=== PATIENT | female | born 1965 | race Caucasian/White ===

== ENCOUNTER 2017-07-30 22:31 | Emergency (ER) | payer BC, MEDICARE ==
[~2017-07-30] VITALS: Ht 165.1 cm; Wt 45.4 kg
[~2017-07-30 22:31] MED LIST: AMIT50TA PO; DIPH25CA58 IV; FURO-68 PO; METO25TA4 PO; POTA20TA4 PO; PROM25VI5 IJ; WARF1TAB74 PO
--- NOTE | 2017-07-30 23:14 | PHYS DOC ---
General Chief Complaint: COUGH Stated Complaint: SHORT OF BREATH,COUGHING BLOOD,WEAK Time Seen by MD: 22:36 Source: patient, old records Exam Limitations: no limitations Problems: History of Present Illness Initial Comments Patient is a 51-year-old female with an extensive past medical history who takes Coumadin coming to the emergency department complaining of shortness of breath and hemoptysis. Patient states that for the past 2 weeks she's had fatigue and weakness, she's had dyspnea on exertion off and running out of breath walking from one room to the next. She's had chest tightness and intermittent chills and sweats. She does admit to having a bloody nose recently due to the dry weather however tonight she noticed blood in her sputum while coughing and wasn't certain whether it was coming from her nose or lungs. Her last INR check was last Thursday she is uncertain of the results, she follows with Dr. Ling as PCP. ED vitals: 98.4, 100, 26, 120/83, 95% room air Timing/Duration: 4-6 hours, constant Severity: moderate Modifying Factors: improves with other Associated Symptoms: chest pain, cough, diaphoresis, fever/chills, headaches, malaise, shortness of breath, weakness Allergies: Coded Allergies: acetaminophen (Verified Allergy, Severe, 09/10/16) hydrocodone (Verified Allergy, Severe, 09/10/16) clarithromycin (Verified Allergy, Intermediate, 09/10/16) codeine (Verified Allergy, Intermediate, 09/10/16) guaifenesin (Verified Allergy, Intermediate, 03/28/16) meperidine (Verified Allergy, Intermediate, 09/10/16) metoclopramide (Verified Allergy, Intermediate, 09/10/16) propoxyphene (Verified Allergy, Intermediate, 09/10/16) tramadol (Verified Allergy, Intermediate, 09/10/16) vitamin K2 (Verified Allergy, Intermediate, 09/10/16) Past Medical History Medical History: other (peptic ulcer disease, GI bleed, tricuspid valve endocarditis, bilateral pleural effusions requiring thoracentesis, PE, septic PEs, pulmonary infarct, bacterial endocarditis, upper extremity deep vein thrombosis, gastroparesis, GERD, anemia with multiple blood transfusions, bowel obstructions, chronic Coumadin anticoagulation) Surgical History: other (tricuspid valve debridement and annuloplasty in 2015, open heart surgery, appendectomy, cholecystectomy, adhesion lysis, Gray fundoplication, tubal ligation, hysterectomy, thoracentesis, multiple abdominal surgeries) Social History Smoker: non-smoker Alcohol: none Drugs: none Review of Systems Constitutional: chills, diaphoresis, denies fever, malaise, weakness EENTM: denies ear pain, denies nose pain, denies throat pain, denies mouth pain Respiratory: see HPI, cough, shortness of breath, wheezing Cardiovascular: see HPI, chest pain, denies palpitations, denies syncope Gastrointestinal: denies abdominal pain, diarrhea, denies nausea, denies vomiting Genitourinary: denies dysuria, denies frequency, denies hematuria Musculoskeletal: denies back pain, denies joint swelling, denies neck pain Psychiatric/Neurological: headache, denies numbness, denies paresthesia, denies weakness Hematologic/Lymphatic: see HPI Physical Exam General Appearance: mild distress, thin Ear, Nose, Throat: hearing grossly normal, normal ENT inspection, normal pharynx (dried blood in the nose and in the oral cavity) Neck: non-tender, supple Respiratory: other (course breath sounds bilaterally decreased at the base on the right with fairly good air movement no respiratory distress and the chest is nontender) Cardiovascular: normal peripheral pulses, regular rate, rhythm Gastrointestinal: normal bowel sounds, non tender, soft Back: no CVA tenderness, no vertebral tenderness Extremities: normal range of motion, non-tender, no pedal edema, no calf tenderness, pelvis stable, other (arthritic changes noted at bilateral upper extremities) Neurologic/Psychiatric: 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 PATIENT: GWENDOLYN CAVAZOS ACCOUNT: [id number] : 1965 LOCATION: ER AGE: 51 SEX: F EXAM STATUS: REG ER ORD. PHYSICIAN: VERNA GROSSMAN DO REASON: sob h/o septic PE PROCEDURE: CT ANGIOGRAPHY CHEST INDICATION: [id number] Omni 300 75cc: PE protocol: Chest pain, short of air, coughing up blood tonight. HX: Lung PE 2016, valve replacement. Old images sent from 09/10/16 for comparison. COMPARISON: September 10, 2016 TECHNIQUE: Axial CT images obtained through the chest. Intravenous contrast utilized. Angiogram 3D images processed per protocol. One or more of the following individualized dose reduction techniques were utilized for this examination: 1. Automated exposure control; 2. Adjustment of the mA and/or kV according to patient size; 3. Use of iterative reconstruction technique. FINDINGS: No evidence of pneumothorax. There is numerous masslike opacities scattered throughout the bilateral lungs. Some of these appear increased from prior and some appear decreased from prior. For example in the left upper lung anteriorly there is a masslike opacity measuring up to approximately 11 mm on current exam that was previously approximately 5 mm. There is a opacity in the right upper lung which currently appears nodular measuring approximately 8 mm. Near this location on prior there is a larger opacity seen measuring up to 32 mm. There is repeat demonstration of cavitation of some of these lesions including within the right lower lung. Within the right lower lobe and right middle lobe there is interval development of a large region of groundglass and nodular opacities seen. Portion of ascending thoracic aorta obscured by motion but no definite aneurysm or dissection seen in visualized portions. Mildly enlarged lymph nodes are again seen scattered throughout the mediastinum. Poststernotomy changes. There is some evidence of degenerative changes of spine. No central pulmonary embolus. Some limitation peripherally secondary to motion IMPRESSION: 1. No central pulmonary embolus. 2. Repeat demonstration of numerous masslike opacity scattered throughout the bilateral lungs with some of them again showing cavitation. Some of these masslike opacities have increased and some have decreased in size compared to prior. Correlation is needed for the patient's history to help assess for cause of this finding since neoplastic causes such as metastasis can have this appearance as well as atypical infectious causes or inflammatory etiology. 3. There is a region of nodular groundglass opacity within the right lower and middle lobe now seen. This could be related to the other pulmonary process but is also possible that this is a superimposed secondary process such as pneumonia, alveolar hemorrhage or aspiration. Electronically signed by: Lili Dudley MD (07/31/2017 12:08 AM) [facility] [place] DICTATED AND SIGNED BY: LILI DUDLEY MD DATE: 07/30/17 5341 CC: CARLOS LING MD; VERNA GROSSMAN DO ~ Pertinent labs: Hemoglobin 10.4, d-dimer 0.56, C-reactive protein 93.6, BNP 330 , PT greater than 128, INR greater than 10, PTT 113 0119: I discussed the patient with Dr. Ling her PCP. I recommended and he agreed patient needs pulmonology and possibly cardiothoracic surgery in-house, is agreeable to transfer to for further evaluation and treatment. 0146: Due to our phone system being down a tried calling data processing consultant hospitalist Dr. Mohamud twice on my cell phone, both calls did not go through. At this time we are going through the on-call service to try to reach the on-call hospitalist. Also awaiting a call back from data processing consultant pulmonology. Impressions: Severe Coumadin coagulopathy Chest pain Numerous masslike pulmonary opacities questionable etiology Hemoptysis Questionable right sided pulmonary hemorrhage Elevated C-reactive protein with history of endocarditis and septic PEs 0200: I discussed the patient with data processing consultant pulmonology Dr. Del Valle. After thorough discussion of the patient's history, ED presentation, and ED findings and he agrees to see the patient in consultation at the ICU at once admitted to the hospitalist. When asked he requests no specific other treatments or orders at this time. 0222: I discussed the patient with data processing consultant hospitalist at Dr. Mohamud. She requests the patient be transferred and admitted to the ICU at and 4 of FFP given. 0440:2 units of FFP have been given, notified by lab that 2 more are now ready. As soon as they arrived to the emergency department EMS be contacted and the patient can be transferred with the FFP being infused. Patient has had a very prolonged ED course due to workup initially and now due to blood bank delay and providing the FFP. The patient has had no further bleeding issues, she's been resting comfortably with stable vital signs. I have been advised that she should be on the road very shortly. Departure Time of Disposition: 01:52 Disposition: 02 XFER SHT-TRM HOSP Condition: STABLE Critical Care Note Total Time (mins): 60 Comments Critical care time spent attempting to contact specialists, discussing the patient extensively with her PCP, rn ortho, as well as admitting physician. Collecting data and going over results as well as direct supervision of blood product administration. VERNA GROSSMAN DO Jul 30, 2017 23:14
[2017-07-30] MEDS ORDERED: CONTRAST GIVEN MC PRN (23:15)
[2017-07-30] MEDS ORDERED: IOHEXOL 300 MG/ML 75 ML VIAL. IV ONE (23:15)
[2017-07-31 00:10] LABS: BASO # 0.1 x10^3/uL (0.0-0.2); BASO % 1 % (0-3); EOS # 0.1 x10^3/uL (0.0-0.7); EOS % 1 % (0-3); HEMATOCRIT 29.7 % (36.0-47.0); HEMOGLOBIN 10.4 g/dL (12.0-15.5); LYMPH # 1.7 x10^3/uL (1.0-4.8); LYMPH % 17 % (24-48); MEAN CORPUSCULAR HEMOGLOBIN 30 pg (25-35); MEAN CORPUSCULAR HGB CONC 35 g/dL (31-37); MEAN CORPUSCULAR VOLUME 85 fL (79-100); MONO # 0.8 x10^3/uL (0.0-1.1); MONO % 8 % (0-9); NEUT # 7.8 x10^3uL (1.8-7.7); NEUT % 74 % (31-73); PLATELET COUNT 334 x10^3/uL (140-400); RED CELL DISTRIBUTION WIDTH 14.1 % (11.5-14.5); WHITE BLOOD COUNT 10.5 x10^3/uL (4.0-11.0)
--- NOTE | 2017-07-31 00:11 | RAD ---
INDICATION: [id number] Omni 300 75cc: PE protocol: Chest pain, short of air, coughing up blood tonight. HX: Lung PE 2016, valve replacement. Old images sent from 09/10/16 for comparison. COMPARISON: September 10, 2016 TECHNIQUE: Axial CT images obtained through the chest. Intravenous contrast utilized. Angiogram 3D images processed per protocol. One or more of the following individualized dose reduction techniques were utilized for this examination: 1. Automated exposure control; 2. Adjustment of the mA and/or kV according to patient size; 3. Use of iterative reconstruction technique. FINDINGS: No evidence of pneumothorax. There is numerous masslike opacities scattered throughout the bilateral lungs. Some of these appear increased from prior and some appear decreased from prior. For example in the left upper lung anteriorly there is a masslike opacity measuring up to approximately 11 mm on current exam that was previously approximately 5 mm. There is a opacity in the right upper lung which currently appears nodular measuring approximately 8 mm. Near this location on prior there is a larger opacity seen measuring up to 32 mm. There is repeat demonstration of cavitation of some of these lesions including within the right lower lung. Within the right lower lobe and right middle lobe there is interval development of a large region of groundglass and nodular opacities seen. Portion of ascending thoracic aorta obscured by motion but no definite aneurysm or dissection seen in visualized portions. Mildly enlarged lymph nodes are again seen scattered throughout the mediastinum. Poststernotomy changes. There is some evidence of degenerative changes of spine. No central pulmonary embolus. Some limitation peripherally secondary to motion IMPRESSION: 1. No central pulmonary embolus. 2. Repeat demonstration of numerous masslike opacity scattered throughout the bilateral lungs with some of them again showing cavitation. Some of these masslike opacities have increased and some have decreased in size compared to prior. Correlation is needed for the patient's history to help assess for cause of this finding since neoplastic causes such as metastasis can have this appearance as well as atypical infectious causes or inflammatory etiology. 3. There is a region of nodular groundglass opacity within the right lower and middle lobe now seen. This could be related to the other pulmonary process but is also possible that this is a superimposed secondary process such as pneumonia, alveolar hemorrhage or aspiration. Electronically signed by: Eulogio Hess MD (07/31/2017 12:08 AM) [facility]
[2017-07-31 00:16] LABS: ALBUMIN/GLOBULIN RATIO 0.7 (1.0-1.7); C REACTIVE PROTEIN 93.6 mg/L (0-3.3); CALCIUM 8.2 mg/dL (8.5-10.1); CREATININE 0.8 mg/dL (0.6-1.0); GFR 76.2; POTASSIUM 3.5 mmol/L (3.5-5.1); TOTAL BILIRUBIN 0.3 mg/dL (0.2-1.0); TOTAL PROTEIN 7.4 g/dL (6.4-8.2)
[2017-07-31] MEDS ORDERED: WARF1TAB74 PO (00:38)
[2017-07-31 01:19] LABS: INFLUENZA A PATIENT NEGATIVE (NEGATIVE); INFLUENZA B PATIENT NEGATIVE (NEGATIVE)
[2017-07-31] MEDS ORDERED: MORPHINE SULFATE 5 MG/ML SYRINGE. IV ONE (01:30)
[2017-07-31] MEDS ORDERED: PROMETHAZINE IM 25 MG/ML VIAL IM ONE (01:30)
[2017-07-31 01:36] LABS: AMPHETAMINE/METHAMPHETAMINE NEG (NEG); BARBITURATES NEG (NEG); BENZODIAZEPINES NEG (NEG); CANNABINOIDS NEG (NEG); COCAINE NEG (NEG); METHADONE NEG (NEG); OPIATES NEG (NEG); PHENCYCLIDINE NEG (NEG)
[2017-07-31] MEDS ORDERED: PROMETHAZINE 25 MG/ML VIAL IV ONE (01:36)
[2017-07-31 01:47] LABS: BACTERIA,URINE FEW /HPF (0-FEW); BILIRUBIN,URINE NEG (NEG); CLARITY,URINE TURBID; COLOR,URINE RED; GLUCOSE,URINE NEG (NEG); NITRITE,URINE NEG (NEG); RBC,URINE TNTC /HPF (0-2); SQUAMOUS EPITHELIAL CELL,UR FEW /LPF; UROBILINOGEN,URINE 1 mg/dL (0.2 mg/dL)
[2017-07-31 05:45] VITALS: BP 104/70
--- NOTE | 2017-07-31 05:51 | EKG ---
[address] [address] Test Date: 2017-07-30 Test Time: 23:05:31 Pat Name: GWENDOLYN CAVAZOS Department: Room: Gender: F Sander Operator: MANUELA : 1965 Requested By: VERNA GROSSMAN Order Number: [id number] Reading MD: Zane Hein Measurements Intervals [place] Rate: 83 P: 90 OK: 148 QRS: 42 QRSD: 80 T: 60 QT: 388 QTc: 456 Interpretive Statements SINUS RHYTHM T ABNORMALITY IN HIGH LATERAL LEADS ABNORMAL ECG Electronically Signed On 08-04-2017 16:26:06 STITCH SEPARATOR by Zane Hein
--- NOTE | 2017-07-31 08:00 | RAD ---
Indication: Chest pain, shortness of breath. Technique: Portable AP chest x-ray Comparison: CT chest from 07/30/2017 Findings: Median sternotomy. Right-sided central venous catheter is noted with its tip in the right atrium. No pneumothorax or pleural effusion. Reticulonodular opacities are seen in the right lower lobe better seen on CT chest from the same day. Focal opacity seen in the left upper lobe Visualized bony thorax within normal limits. Impression: Right lower lobe interstitial opacities. Findings are suspicious of infectious process. Please see report on CT chest from the same day for more information.
== END 2017-07-31 05:52 | disposition short-term general hospital (02) ==
LOC: ER 22:31
DX: D68.8 Other specified coagulation defects (principal); R07.9 Chest pain, unspecified; R04.2 Hemoptysis; R79.82 Elevated C-reactive protein (CRP); K21.9 Gastro-esophageal reflux disease without esophagitis; Z86.711 Personal history of pulmonary embolism; Z87.11 Personal history of peptic ulcer disease; Z86.718 Personal history of other venous thrombosis and embolism; Z86.2 Personal history of diseases of the blood and blood-forming organs and certain disorders involving the immune mechanism; Z90.49 Acquired absence of other specified parts of digestive tract; Z90.710 Acquired absence of both cervix and uterus; Z98.51 Tubal ligation status; Z98.890 Other specified postprocedural states; Z79.01 Long term (current) use of anticoagulants; Z88.6 Allergy status to analgesic agent; Z88.1 Allergy status to other antibiotic agents; Z88.5 Allergy status to narcotic agent; Z88.8 Allergy status to other drugs, medicaments and biological substances
CPT/HCPCS: 99291; J2270; J2550; P9017; 36415; 71045; 71275; 80053; 80307; 81001; 82550; 83605; 83880; 84484; 85025; 85379; 85610; 85730; 86140; 86850; 86900; 86901; 86927; 87040; 87205; 87804; 93005; 99281; Q9967; G0479

== ENCOUNTER 2017-08-02 17:37 | Inpatient (IN) | payer BC, MEDICARE ==
[~2017-08-02] VITALS: Ht 165.1 cm; Wt 48.2 kg
[2017-08-02] MEDS ORDERED: FUROSEMIDE 40 MG TABLET PO PRN (19:00)
[2017-08-02] MEDS ORDERED: POTASSIUM CHLORIDE 20 MEQ TABLET.ER. PO PRN (19:00)
[2017-08-02 19:11] VITALS: BP 110/68
--- NOTE | 2017-08-02 19:25 | NUR ---
Pt was direct admitted to [facility] room 113 from home. Admission assessment completed. VSS. Pt was just discharged home from [facility] for coughing up blood and found to have an INR>10. Pt did receive 4 unit of FFP on 07/30/17. Health history & home medications reviewed with pt. Pt with extensive gastro & cardiac hx. Pt admitted for + blood cx results from labs drawn on 07/30/17. Pt with left chest Groshong. Access site assessed and dressing change completed, no signs of infection noted. 2 new sets of blood cultures drawn (1 set from Groshong) and IV Vanco started per order. Pt lives at home with & kids. SCDs for VTE, pt normally takes Coumadin but currently holding. Pt refused flu & pneumonia vaccine. Pt with + MRSA hx, nasal swab obtained. Pt was given written information regarding hospital policies, unit procedures and contact persons. Valuables were checked and left at bedside. Call light within reach.
[2017-08-02 19:29] LABS: BASO # 0.1 x10^3/uL (0.0-0.2); BASO % 1 % (0-3); EOS # 0.2 x10^3/uL (0.0-0.7); EOS % 2 % (0-3); HEMATOCRIT 30.9 % (36.0-47.0); HEMOGLOBIN 10.3 g/dL (12.0-15.5); LYMPH # 1.6 x10^3/uL (1.0-4.8); LYMPH % 21 % (24-48); MEAN CORPUSCULAR HEMOGLOBIN 29 pg (25-35); MEAN CORPUSCULAR HGB CONC 33 g/dL (31-37); MEAN CORPUSCULAR VOLUME 88 fL (79-100); MONO # 0.3 x10^3/uL (0.0-1.1); MONO % 4 % (0-9); NEUT # 5.7 x10^3uL (1.8-7.7); NEUT % 72 % (31-73); PLATELET COUNT 464 x10^3/uL (140-400); RED BLOOD COUNT 3.53 x10^6/uL (3.50-5.40); RED CELL DISTRIBUTION WIDTH 14.3 % (11.5-14.5); WHITE BLOOD COUNT 7.9 x10^3/uL (4.0-11.0)
[2017-08-02] MEDS ORDERED: AMOX1TAB61 PO (19:58)
[2017-08-02] MEDS ORDERED: AMIT25TA PO (19:58)
[2017-08-02] MEDS ORDERED: FERR-26 PO (19:58)
[2017-08-02] MEDS ORDERED: PROM50SU6 PO (19:58)
[2017-08-02] MEDS ORDERED: VANCOMYCIN 1 GM in IV NORMAL SALINE 250ML 250 ML IV ONE (20:00)
[2017-08-02] MEDS ORDERED: PROMETHAZINE 25 MG TABLET. PO PRN (20:15)
[2017-08-02 20:35] LABS: CREATININE 0.8 mg/dL (0.6-1.0); GFR 76.2
[2017-08-02] MEDS ORDERED: AMITRIPTYLINE HCL 50 MG TABLET PO SCH (21:00)
[2017-08-02] MEDS: FERROUS SULFATE 325 MG TABLET. PO SCH (21:20)
[2017-08-02] MEDS: METOPROLOL TART IMMED RELEASE 25 MG TABLET PO SCH (21:21)
[2017-08-02] MEDS: NALBUPHINE 10 MG/ML AMPUL. IV PRN (21:24)
[2017-08-02] MEDS: AMITRIPTYLINE HCL 25 MG TABLET PO SCH (21:26)
[2017-08-02 21:33] LABS: SEDIMENTATION RATE 82 (0-25)
[2017-08-02 22:33] VITALS: BP 95/60
[2017-08-02] MEDS ORDERED: PROMETHAZINE IM 25 MG/ML VIAL IM ONE (23:26)
[2017-08-02] MEDS: diphenhydrAMINE 50 MG/ML VIAL IVP SCH (23:35)
[2017-08-02] MEDS: PROMETHAZINE 12.5 MG in IV NORMAL SALINE 50ML 50 ML IV PRN (23:35)
[2017-08-03] MEDS ORDERED: diphenhydrAMINE HCL 25 MG CAPSULE PO PRN
[2017-08-03] MEDS: NALBUPHINE 10 MG/ML AMPUL. IV PRN (03:43)
[2017-08-03] MEDS ORDERED: PROMETHAZINE 25 MG/ML VIAL IV ONE (05:15)
[2017-08-03] MEDS: diphenhydrAMINE 50 MG/ML VIAL IVP SCH ×4 (05:17→23:38)
[2017-08-03] MEDS: PROMETHAZINE 12.5 MG in IV NORMAL SALINE 50ML 50 ML IV PRN ×3 (05:17→22:31)
[2017-08-03 05:37] VITALS: BP 94/62
[2017-08-03 06:13] LABS: CALCIUM 7.8 mg/dL (8.5-10.1); CREATININE 0.6 mg/dL (0.6-1.0); GFR 106.3
[2017-08-03 06:30] LABS: BASO % 1 % (0-3); EOS # 0.2 x10^3/uL (0.0-0.7); EOS % 4 % (0-3); HEMATOCRIT 25.1 % (36.0-47.0); HEMOGLOBIN 8.5 g/dL (12.0-15.5); LYMPH # 2.3 x10^3/uL (1.0-4.8); LYMPH % 34 % (24-48); MEAN CORPUSCULAR HEMOGLOBIN 30 pg (25-35); MEAN CORPUSCULAR HGB CONC 34 g/dL (31-37); MEAN CORPUSCULAR VOLUME 88 fL (79-100); MONO # 0.5 x10^3/uL (0.0-1.1); MONO % 7 % (0-9); NEUT # 3.7 x10^3uL (1.8-7.7); NEUT % 55 % (31-73); PLATELET COUNT 348 x10^3/uL (140-400); RED BLOOD COUNT 2.84 x10^6/uL (3.50-5.40); RED CELL DISTRIBUTION WIDTH 14.2 % (11.5-14.5); WHITE BLOOD COUNT 6.8 x10^3/uL (4.0-11.0)
[2017-08-03] MEDS ORDERED: ALTEPLASE 2 MG VIAL INT CAT PRN (08:00)
[2017-08-03] MEDS: VANCOMYCIN PER PHARMACY MC PRN (08:31)
--- NOTE | 2017-08-03 08:31 | NUR ---
Pharmacy Vancomycin Dosing Note S:Consulted to monitor and dose vancomycin started 08/02/17. O:GWENDOLYN CAVAZOS is a 51 year old F with Bacteremia . Height: 5 feet, 5 inches Weight: 46.033895 kg [place] Body Weight: 57.00 Adjusted Body Weight: 52.60 Dosing Weight: Actual LABS: Last BUN: 10 Last Creatinine: 0.6 Creatinine Clearance: 83 Last WBC: 6.8 Last Platelets: 348 Vancomycin Dosing: Loading Dose: 1000 mg x1 Dosing Weight: Actual Target Trough: 15-20 A: Initial dosing is based on height, actual weight, renal function, and indication. P: 1. Vancomycin 1000mg was given initially (08/02@1999), then Vancomycin 750 mg IV q12h. 2. Follow up Trough level on 08/04/17 at 0730. 3. Pharmacy will continue to monitor, follow and adjust therapy as needed. TJ DAMICO, [facility] 08/03/17 0829
[2017-08-03] MEDS: VANCOMYCIN 750 MG in IV NORMAL SALINE 250ML 250 ML IV SCH ×2 (08:42→20:36)
[2017-08-03] MEDS: FERROUS SULFATE 325 MG TABLET. PO SCH ×3 (08:43→20:38)
[2017-08-03 10:32] VITALS: BP 117/72
[2017-08-03] MEDS: METOPROLOL TART IMMED RELEASE 25 MG TABLET PO SCH ×2 (10:59→20:37)
--- NOTE | 2017-08-03 12:27 | NUR ---
IP: Patient reports HX MRSA, requires contact precautions until 2 negative results 7 days apart.
[2017-08-03] MEDS ORDERED: PROMETHAZINE 25 MG TABLET. PO PRN (13:15)
[2017-08-03] MEDS: BUTORPHANOL 2 MG VIAL. IV PRN ×2 (14:15→20:50)
[2017-08-03 14:38] VITALS: BP 117/69
[2017-08-03] MEDS ORDERED: IPRATRPIUM/ALBUTEROL 0.5/2.5MG 3 ML NEBU. ONE (15:25)
[2017-08-03 19:56] VITALS: BP 97/61
[2017-08-03] MEDS: IPRATRPIUM/ALBUTEROL 0.5/2.5MG 3 ML NEBU. NEB SCH (20:10)
[2017-08-03] MEDS: AMITRIPTYLINE HCL 25 MG TABLET PO SCH (20:38)
[2017-08-03 22:37] VITALS: BP 98/63
--- NOTE | 2017-08-03 23:47 | HP ---
ADMIT DATE: 08/02/2017 HISTORY OF PRESENT ILLNESS: A 51-year-old female recently was in the hospital. She has a port in her left chest wall. Positive blood cultures were obtained from these, positive Staph aureus. As a result of this, the patient may also have the appearance as well of atypical infectious causes and inflammatory reaction to a previous CT scan. There is a possibility of a secondary pneumonia process noted. The patient was admitted to the hospital for further evaluation and treatment of this abnormality as well as positive blood cultures and her pneumonia. 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 She has had a history of endocarditis and Vascular Surgery anticoagulant therapy, hypertension, DVTs, bilateral pleural effusions needing thoracentesis gastroparesis, peptic ulcer disease, GERD, esophageal disorders, obstructive bowel disease, abdominal surgery, appendectomy, cholecystectomy, lysis of adhesions, laparoscopic Gray fundoplication and takedown, endoscopy, EGD and colonoscopy, nausea, gastroesophageal reflux, gastrointestinal bleed, tubal ligation, hysterectomy, hematuria, compression, loss of weight. He has had blood transfusions in the past, anemia, influenza vaccine and pneumococcal vaccines up to date. She has had multiple blood accesses, has ports, PICC lines and Groshongs and she has been positive in the past of MRSA. FAMILY HISTORY: Mother of Alzheimer disease. Father has chronic lung disease. ALLERGIES: TYLENOL, CLARITHROMYCIN, CODEINE, GUAIFENESIN, HYDROCODONE, MEPERIDINE, METOCLOPRAMIDE, PROPOXYPHENE, TRAMADOL, VITAMIN K. MEDICATIONS: She takes Elavil 25, Augmentin, Benadryl, ferrous sulfate, metoprolol tartrate 25 b.i.d., Phenergan, promethazine, warfarin 10 mg 3 times a week and 4 times a week. SOCIAL HISTORY: The patient denies smoking, alcohol or drug use. REVIEW OF SYSTEMS: The patient has generalized weakness, failure to thrive and difficulty in mobilizing. Also has harsh cough. PHYSICAL EXAMINATION: GENERAL: A pleasant white female, looking very frail and thin. VITAL SIGNS: Blood pressure 110/70, respiratory rate 20, pulse 97. HEENT: The patient's head was atraumatic, normocephalic. Eyes: PERRLA without jaundice. The mouth and throat were normal. NECK: Supple, without JVD, carotid bruits. No thyromegaly. LUNGS: The patient's lungs were diminished throughout, poor movement of air. CARDIOVASCULAR: Regular sinus rhythm, S1, S2. ABDOMEN: Soft, nontender, no rebounding or guarding. Positive bowel sounds, no hepatosplenomegaly noted. EXTREMITIES: No clubbing, cyanosis, no edema. NEUROLOGIC: The patient was alert and oriented x3. The patient was admitted for further evaluation. IMPRESSION: Pneumonia of unspecified etiology, community acquired, positive blood cultures. The patient will be admitted and placed on IV vancomycin and Levaquin for atypical pneumonias as noted on her CT scan. reports from her hem inspector as to these large masses in her lungs. CARLOS LING MD DR: NAJMA/saud JOB#: [id number] / [id number]
[2017-08-04] MEDS: BUTORPHANOL 2 MG VIAL. IV PRN ×4 (00:58→20:10)
[2017-08-04] MEDS: diphenhydrAMINE 50 MG/ML VIAL IVP SCH ×4 (05:29→23:42)
[2017-08-04] MEDS: PROMETHAZINE 12.5 MG in IV NORMAL SALINE 50ML 50 ML IV PRN ×3 (05:29→23:42)
[2017-08-04 06:08] VITALS: BP 112/72
[2017-08-04 08:10] LABS: VANC TR 10.2 mcg/mL (10.0-20.0)
[2017-08-04] MEDS: FERROUS SULFATE 325 MG TABLET. PO SCH ×3 (08:41→20:11)
[2017-08-04] MEDS: VANCOMYCIN 1 GM in IV NORMAL SALINE 250ML 250 ML IV SCH ×2 (08:41→20:10)
[2017-08-04] MEDS: VANCOMYCIN PER PHARMACY MC PRN (09:05)
--- NOTE | 2017-08-04 09:05 | NUR ---
Pharmacy Vancomycin Dosing Note S:Consulted to monitor and dose vancomycin started 08/02/17. O:GWENDOLYN CAVAZOS is a 51 year old F with Bacteremia . Height: 5 feet, 5 inches Weight: 47.831396 kg [place] Body Weight: 57.00 Adjusted Body Weight: 52.60 Dosing Weight: Actual Other Antibiotics: LEVAQUIN LABS: Last BUN: 10 Last Creatinine: 0.6 Creatinine Clearance: 83 Last WBC: 6.8 Last Platelets: 348 Microbiology: STAPH IN BLOOD Drug Levels: Last Trough level: 10.2 on 08/04/17 at 0730 Vancomycin Dosing: Loading Dose: 1000 mg x1 Dosing Weight: Actual Target Trough: 15-20 A: Based on today's trough of 10.2, the dose needs to increase to hit the target range. P: 1. Increase Vancomycin to 1000 mg IV q12h 2. Follow up Trough level on 08/05/17 at 1930 3. Pharmacy will continue to monitor, follow and adjust therapy as needed. TJ DAMICO [facility] 08/04/17 0948
[2017-08-04 11:05] VITALS: BP 125/72
[2017-08-04] MEDS: METOPROLOL TART IMMED RELEASE 25 MG TABLET PO SCH ×2 (11:25→20:11)
[2017-08-04] MEDS: IPRATRPIUM/ALBUTEROL 0.5/2.5MG 3 ML NEBU. NEB SCH ×2 (11:50→21:00)
[2017-08-04 19:30] VITALS: BP 113/78
[2017-08-04] MEDS: DOXYCYCLINE HYCLATE 100 MG TABLET PO SCH (20:11)
[2017-08-04] MEDS: AMITRIPTYLINE HCL 25 MG TABLET PO SCH (20:11)
[2017-08-04] MEDS: LACTOBACILLUS RHAMNOSUS GG 1 CAPSULE. PO SCH (21:40)
[2017-08-04] MEDS ORDERED: PROMETHAZINE 25 MG/ML VIAL IV ONE (23:13)
[2017-08-05 00:08] VITALS: BP_SYST 103; BP_SYST 105; BP_DIAS 60
--- NOTE | 2017-08-05 02:21 | NUR ---
pATIENT ALERT X4. VSS. Mild Wheezing mainly over upper part of the lungs was heard. Complained of severe migraines. PRN medication administrated as per MD orders. Reported decreasing headache after one hour of administration. Patient had a shower. Left chest Groshong dressing was changed using sterile technique. Patient tolerated antibiotic administration. Patient was maintained NPO and was instructed not to drink or eat after midnight. Safety precautions in place. Will continue monitoring.
--- NOTE | 2017-08-05 02:40 | NUR ---
patient was informed that today in the morning she will have a TTE. Informed of the propose.
[2017-08-05] MEDS: diphenhydrAMINE 50 MG/ML VIAL IVP SCH ×3 (05:16→18:00)
--- NOTE | 2017-08-05 05:56 | PN ---
DATE: 08/04/2017 SUBJECTIVE: A 51-year-old female with abnormal chest x-ray, pneumonia as well as positive blood cultures bacteremia. The patient will get mycoplasma serology. She has been changed over to doxycycline and vancomycin and will completely monitor her accordingly. Otherwise, the patient's CT scan showed numerous mass-like opacities scattered throughout the bilateral lungs. The patient will get a MOISES. She has had problems with bacterial endocarditis in the past and we will monitor her accordingly on such. Otherwise, the patient is feeling somewhat better. OBJECTIVE: VITAL SIGNS: Blood pressure 120/70, respiratory rate 20, pulse 70, afebrile. LUNGS: Diminished throughout, poor movement of air. CARDIOVASCULAR: Regular sinus rhythm, S1, S2, without murmur, rub, thrill, or extra heart sounds. ABDOMEN: Soft, nontender, no rebound or guarding. Positive bowel sounds. IMPRESSION: Therefore, pneumonia of unspecified etiology, probable mycoplasma, atypical multiple masses in the lungs. Positive blood cultures bacteremia. PLAN: The patient will be continued to be monitored carefully. Continue with IV antibiotic therapy and go for MOISES tomorrow. CARLOS LING MD DR: NAJMA/saud JOB#: [id number] / [id number]
[2017-08-05 06:11] VITALS: BP 116/63
[2017-08-05 07:03] LABS: BASO % 1 % (0-3); EOS # 0.2 x10^3/uL (0.0-0.7); EOS % 3 % (0-3); HEMATOCRIT 33.2 % (36.0-47.0); HEMOGLOBIN 10.8 g/dL (12.0-15.5); LYMPH # 2.1 x10^3/uL (1.0-4.8); LYMPH % 30 % (24-48); MEAN CORPUSCULAR HEMOGLOBIN 30 pg (25-35); MEAN CORPUSCULAR HGB CONC 33 g/dL (31-37); MEAN CORPUSCULAR VOLUME 91 fL (79-100); MONO # 0.4 x10^3/uL (0.0-1.1); MONO % 6 % (0-9); NEUT # 4.3 x10^3uL (1.8-7.7); NEUT % 61 % (31-73); PLATELET COUNT 462 x10^3/uL (140-400); RED BLOOD COUNT 3.66 x10^6/uL (3.50-5.40); RED CELL DISTRIBUTION WIDTH 14.7 % (11.5-14.5)
[2017-08-05 07:23] LABS: ALBUMIN 2.8 g/dL (3.4-5.0); ALBUMIN/GLOBULIN RATIO 0.6 (1.0-1.7); CALCIUM 8.8 mg/dL (8.5-10.1); CREATININE 0.7 mg/dL (0.6-1.0); GFR 88.9; TOTAL BILIRUBIN 0.3 mg/dL (0.2-1.0); TOTAL PROTEIN 7.7 g/dL (6.4-8.2)
[2017-08-05] MEDS: METOPROLOL TART IMMED RELEASE 25 MG TABLET PO SCH (09:00)
[2017-08-05] MEDS: LACTOBACILLUS RHAMNOSUS GG 1 CAPSULE. PO SCH (09:00)
[2017-08-05] MEDS: IPRATRPIUM/ALBUTEROL 0.5/2.5MG 3 ML NEBU. NEB SCH (09:00)
[2017-08-05] MEDS: FERROUS SULFATE 325 MG TABLET. PO SCH ×2 (09:10→14:24)
[2017-08-05] MEDS: DOXYCYCLINE HYCLATE 100 MG TABLET PO SCH (09:10)
[2017-08-05] MEDS: VANCOMYCIN 1 GM in IV NORMAL SALINE 250ML 250 ML IV SCH (09:16)
[2017-08-05 10:39] VITALS: BP 132/80
[2017-08-05] MEDS: BUTORPHANOL 2 MG VIAL. IV PRN (14:34)
[2017-08-05 14:44] VITALS: BP 111/70
[2017-08-05] MEDS: PROMETHAZINE 12.5 MG in IV NORMAL SALINE 50ML 50 ML IV PRN (15:00)
--- NOTE | 2017-08-05 18:04 | NUR ---
Called [place] for report for transfer of patient. Talked to GIGI Levy. Called [facility] for transportation. Will arrive [place].
--- NOTE | 2017-08-05 18:18 | NUR ---
Pt transferred to [place] via EMS.
--- NOTE | 2017-08-06 00:50 | PN ---
DATE: SUBJECTIVE: A 51-year-old female with a very complicated medical patient having multiple medical issues including tricuspid valve debridement and annuloplasty and multiple other problems, bacterial endocarditis in the past. The patient also has masses in her lungs ____ possibly be that of blood; however, the patient has turned up with positive for atypical mycoplasma pneumonia. She is receiving IV doxycycline as well as other antibiotics. She is being scheduled for a MOISES with Dr. Segundo for MOISES procedure. The patient did have an elevated sed rate of 82. She has a port, which may be a source of infection and she did have positive blood cultures as well. Nothing identified specifically, although she has had some gram positive and possibly some contaminant in another bottle or two, variable rods in the anaerobic bottles were also noted. In any case, the patient says she is feeling a little bit better today. OBJECTIVE: VITAL SIGNS: Blood pressure 130/80, respiratory rate 20, pulse 50. She is presently afebrile. LUNGS: Diminished throughout but clear. CARDIOVASCULAR: Regular sinus rhythm. ABDOMEN: Soft, nontender. GENERAL: The patient is alert and oriented x 3. Speech fluent and appropriate. Cranial nerves 2-12 grossly intact. She is doing well. LABORATORY DATA: INR being followed by Pharmacy. In any case, the patient's albumin is low. IMPRESSION: Therefore, atypical pneumonia, pulmonary abnormality, masses, possibly hematomas versus ____ cyst or even had possible infectious etiologies, history of bacterial endocarditis. Positive blood cultures, bacteremia, [id number] protein malnutrition, chronic migraines. PLAN: The patient otherwise will be monitored carefully, continue on IV antibiotic therapy, probably transfer down to [place] for further evaluation and treatment there from Dr. Segundo, Cardiology and ID as she sees appropriate. CARLOS LING MD DR: NAJMA/saud JOB#: [id number] / [id number]
[2017-08-06] MEDS ORDERED: IPRATRPIUM/ALBUTEROL 0.5/2.5MG 3 ML NEBU. NEB SCH (09:00)
== END 2017-08-05 18:25 | disposition short-term general hospital (02) | DRG 194 ==
LOC: 1 SOUTH 18:29
PROVIDERS: ADMIT Family Medicine; ATTEND Family Medicine
DX: J15.7 Pneumonia due to Mycoplasma pneumoniae (principal); R78.81 Bacteremia; E44.0 Moderate protein-calorie malnutrition; Z68.1 Body mass index [BMI] 19.9 or less, adult; K31.84 Gastroparesis; I10 Essential (primary) hypertension; G43.909 Migraine, unspecified, not intractable, without status migrainosus; J98.4 Other disorders of lung; K21.9 Gastro-esophageal reflux disease without esophagitis; Z86.718 Personal history of other venous thrombosis and embolism; Z79.01 Long term (current) use of anticoagulants; Z90.49 Acquired absence of other specified parts of digestive tract; Z98.51 Tubal ligation status; Z90.710 Acquired absence of both cervix and uterus; Z82.0 Family history of epilepsy and other diseases of the nervous system; Z83.6 Family history of other diseases of the respiratory system; Z88.5 Allergy status to narcotic agent; Z88.8 Allergy status to other drugs, medicaments and biological substances; Z79.899 Other long term (current) drug therapy; Z87.11 Personal history of peptic ulcer disease
CPT/HCPCS: 36415; 71045; 71275; 80048; 80053; 80202; 80307; 81001; 82550; 82565; 83605; 83880; 84484; 85025; 85379; 85610; 85651; 85730; 86140; 86738; 86850; 86900; 86901; 86927; 87040; 87205; 87641; 87804; 93005; 94640; J0595; J1200; J1956; J2300; J2550; J3370; J7050; J7620; Q9967; G0479

== ENCOUNTER → 2017-10-28 | Outpatient (CLI) | payer BC, MEDICARE ==
[~2017-10-28] MED LIST changes: +AMIT25TA PO; +AMOX1TAB61 PO; +FERR325T14 PO; +PROM50SU6 PO
--- NOTE | 2017-10-28 13:38 | RAD ---
CT abdomen pelvis without intravenous contrast History: Hematuria and left flank pain. Comparison: CT abdomen pelvis September 10, 2016. Technique: CT of the abdomen and pelvis was performed without intravenous or oral contrast. Exposure: One or more of the following individualized dose reduction techniques were utilized for this examination: 1. Automated exposure control 2. Adjustment of the mA and/or kV according to patient size 3. Use of iterative reconstruction technique Findings: Evaluation of solid organs is limited by lack of intravenous contrast. Evaluation of enteric structures may be limited by lack of oral contrast. There is motion artifact at many levels which could obscure subtle abnormalities. Incompletely seen, images of lower chest demonstrate consolidation in the left lower lobe adjacent to the aorta. Liver and spleen are grossly unremarkable. Bilateral adrenal glands are unremarkable. Pancreas is suboptimally visualized, but grossly unremarkable. Cholecystectomy clips are present. No nephrolithiasis is identified. Evaluation of the ureters is limited secondary to adjacent soft tissue structures as well as motion. No hydronephrosis is seen. There are calcifications in the pelvis which are favored to be phleboliths as there can be seen on previous study. Urinary bladder is unremarkable. Uterus is not seen, and is presumably absent. No gross bowel obstruction or inflammation is identified. Appendix is not confidently identified. Impression: 1. Limitations of study as described above. 2. No definite acute abnormality identified in the abdomen or pelvis. No definite evidence of renal stone. 3. Incompletely seen is irregular consolidation an left lower lobe adjacent to the aorta. Recommend clinical correlation with respiratory symptoms. Electronically signed by: Robel Macias MD (10/28/2017 1:35 PM) [facility]
--- NOTE | 2017-10-28 13:57 | RAD ---
Thyroid ultrasound, 10/28/2017: History: Hypothyroidism, enlarged thyroid gland The right lobe of the gland measures 3.3 x 1.4 x 1.4 cm while the left lobe of the gland measures 3.3 x 1.1 x 1.0 cm. There are several nodules in the thyroid gland. These are predominantly isoechoic and sometimes difficult to differentiate from the adjacent thyroid tissue. The largest of these lies in the lower pole of the right lobe of the gland and measures 1.1 cm. Its margins are smooth. It is solid with internal vascularity. It is wider than tall. No associated calcifications are seen. The largest nodule on the left measures 1 cm and lies in the mid to lower portion of the gland. It demonstrates similar sonographic characteristics compared to the above described right lobe nodule. There appear to be at least 3 other smaller subcentimeter isoechoic nodules in the left lobe. No calcifications or suspicious sonographic features are evident. IMPRESSION: Multinodular thyroid gland as described above. The thyroid nodules are solid, but do not demonstrate highly suspicious sonographic features. Ultrasound follow-up is suggested.
== END | disposition home or self-care (01) ==
LOC: US 12:20
PROVIDERS: ATTEND Nurse Practitioner Family
DX: J18.1 Lobar pneumonia, unspecified organism (principal); E03.9 Hypothyroidism, unspecified; E04.2 Nontoxic multinodular goiter
CPT/HCPCS: 74176; 76536

== ENCOUNTER 2018-01-07 16:13 | Emergency (ER) | payer BC, MEDICARE ==
[~2018-01-07] VITALS: Ht 165.1 cm; Wt 49.9 kg
[2018-01-07 16:34] VITALS: BP 122/85
--- NOTE | 2018-01-07 16:42 | PHYS DOC ---
Past History Past Medical History: Coagulopathy, DVT, Heart Disease, Migraines, MRSA, Other Past Surgical History: Appendectomy, Cholecystectomy, Hysterectomy, Tubal ligation, Other Alcohol Use: None Drug Use: None Adult General Chief Complaint Chief Complaint: HEADACHE HPI HPI Patient is a pleasant 52-year-old female who presents for evaluation of a migraine headache. She is dull with migraines for about 40 years. She has seen multiple neurologists and has had many different types of treatments medications. 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 The only medications that seem to work lately are Nubain and Stadol as well as Phenergan. She takes Coumadin because she has a history of pulmonary embolism. She denies any recent head trauma or falls. She states that the migraine she is having today is typical of her normal migraines and that there is nothing unusual about this migraine. She denies vision changes, neck pain or stiffness, fevers or chills, dizziness, back pain, chest pain or shortness of breath, abdominal pain, focal weakness or focal numbness. She declines CT imaging or INR testing today, both of which were offered. Review of Systems Review of Systems Constitutional: Denies fever or chills [] Eyes: Denies change in visual acuity, redness, or eye pain [] HENT: Denies nasal congestion or sore throat [] Respiratory: Denies cough or shortness of breath [] Cardiovascular: No additional information not addressed in HPI [] GI: Denies abdominal pain, nausea, vomiting, bloody stools or diarrhea [] : Denies dysuria or hematuria [] Musculoskeletal: Denies back pain or joint pain [] Integument: Denies rash or skin lesions [] Neurologic: Denies focal weakness or sensory changes [] +BUTTS Endocrine: Denies polyuria or polydipsia [] All other systems were reviewed and found to be within normal limits, except as documented in this note. Allergies Allergies Allergies Coded Allergies Type Severity Reaction Last Updated Verified acetaminophen Allergy Severe 09/10/16 Yes hydrocodone Allergy Severe 09/10/16 Yes clarithromycin Allergy Intermediate 09/10/16 Yes codeine Allergy Intermediate 09/10/16 Yes guaifenesin Allergy Intermediate 03/28/16 Yes meperidine Allergy Intermediate 09/10/16 Yes metoclopramide Allergy Intermediate 09/10/16 Yes propoxyphene Allergy Intermediate 09/10/16 Yes tramadol Allergy Intermediate 09/10/16 Yes vitamin K2 Allergy Intermediate 09/10/16 Yes I S O L A T I O N *CONTACT* Allergy Unknown 08/03/17 Yes Physical Exam Physical Exam Constitutional: Well developed, well nourished, no acute distress, non-toxic appearance. [] calm HENT: Normocephalic, atraumatic, bilateral external ears normal, oropharynx moist, no oral exudates, nose normal. [] Eyes: PERRLA, EOMI, conjunctiva normal, no discharge. [] Neck: Normal range of motion, no tenderness, supple, no stridor. [] Cardiovascular:Heart rate regular rhythm, no murmur [] Lungs & Thorax: Bilateral breath sounds clear to auscultation [] Abdomen: Bowel sounds normal, soft, no tenderness, no masses, no pulsatile masses. [] Skin: Warm, dry, no erythema, no rash. [] Back: No tenderness, no CVA tenderness. [] Extremities: No tenderness, no cyanosis, no clubbing, ROM intact, no edema. [] Neurologic: Alert and oriented X 3, normal motor function, normal sensory function, no focal deficits noted. [] Psychologic: Affect normal, judgement normal, mood normal. [] EKG EKG [] Radiology/Procedures Radiology/Procedures [] Course & Med Decision Making Course & Med Decision Making Pertinent Labs and Imaging studies reviewed. (See chart for details) @1700 - No red flags for serious headache etiology identified at this time other than the Coumadin. INR and imaging recommended but declined. Pt is A&Ox4. Patient reports she is feeling better after medications and does not want any imaging or blood tests to be performed today. She is stable for discharge at this time and is asking to go home. She'll follow-up with her PCP in 1-2 days. Dragon Disclaimer Dragon Disclaimer This electronic medical record was generated, in whole or in part, using a voice recognition dictation system. Departure Departure: Impression: Primary Impression: Migraine Disposition: HOME, SELF-CARE Condition: STABLE Referrals: CARLOS LING MD (PCP) Patient Instructions: Migraine Headache Additional Instructions: Follow-up with your primary care physician in the next 1-2 days. Return to the ER for new or worsening symptoms. PRECIOUS LYNN DO Jan 07, 2018 16:42
[2018-01-07] MEDS ORDERED: BUTORPHANOL 2 MG VIAL. IM ONE (17:00)
[2018-01-07] MEDS ORDERED: PROMETHAZINE IM 25 MG/ML VIAL IM ONE (17:00)
[2018-01-07] MEDS ORDERED: PROMETHAZINE 25 MG TABLET. PO ONE (17:15)
== END 2018-01-07 17:12 | disposition home or self-care (01) ==
LOC: ER 16:13
DX: G43.909 Migraine, unspecified, not intractable, without status migrainosus (principal); D68.9 Coagulation defect, unspecified; Z86.718 Personal history of other venous thrombosis and embolism; Z86.14 Personal history of Methicillin resistant Staphylococcus aureus infection; Z86.711 Personal history of pulmonary embolism; Z79.01 Long term (current) use of anticoagulants; Z88.5 Allergy status to narcotic agent; Z88.8 Allergy status to other drugs, medicaments and biological substances; Z88.6 Allergy status to analgesic agent; Z88.1 Allergy status to other antibiotic agents; Z91.041 Radiographic dye allergy status
CPT/HCPCS: 96372; 99283; J0595; Q0169

== ENCOUNTER 2018-07-25 06:25 | Inpatient (IN) | payer BC, MEDICARE ==
[~2018-07-25] VITALS: Ht 165.1 cm; Wt 51.4 kg
--- NOTE | 2018-07-25 06:57 | PHYS DOC ---
Past History Past Medical History: Abscess, DVT, Heart Disease, Migraines, MRSA Past Surgical History: Appendectomy, Cholecystectomy, Hysterectomy, Tubal ligation, Other Alcohol Use: None Drug Use: None Adult General Chief Complaint Chief Complaint: ABNORMAL LABS HPI HPI Patient is a 52 year old female who presents with abnormal labs. She states she is taking Coumadin and was at her primary care physician office 4 days ago and had blood tests. Patient states she had fever of 100 at the same time and had blood culture also. Patient states her physician called her father this morning at 5 AM that she has abnormal lab and needs to come to emergency room. She denies fever, chest pain, shortness of breath, neck pain, nausea and vomiting. Patient states she had nonproductive cough and chills for 2 or 3 weeks that gradually improving. Patient also complaining of migraine headache since yesterday like her previous migraine headache episode. Dr. Ling primary care physician of patient was contacted at 6:30 and states he had a call from [facility] at 4 AM regarding positive blood culture with negative abel. Review of Systems Review of Systems Constitutional: Denies fever, reports chills [] Eyes: Denies change in visual acuity, redness, or eye pain [] HENT: Denies nasal congestion or sore throat [] Respiratory: Reports cough cough, denies shortness of breath [] Cardiovascular: No additional information not addressed in HPI [] GI: Denies abdominal pain, nausea, vomiting, bloody stools or diarrhea [] : Denies dysuria or hematuria [] Musculoskeletal: Denies back pain or joint pain [] Integument: Denies rash or skin lesions [] Neurologic: Reports headache, denies focal weakness or sensory changes [] Endocrine: Denies polyuria or polydipsia [] All other systems were reviewed and found to be within normal limits, except as documented in this note. Allergies Allergies Allergies Coded Allergies Type Severity Reaction Last Updated Verified acetaminophen Allergy Severe 09/10/16 Yes hydrocodone Allergy Severe 09/10/16 Yes clarithromycin Allergy Intermediate 09/10/16 Yes codeine Allergy Intermediate 09/10/16 Yes guaifenesin Allergy Intermediate 03/28/16 Yes meperidine Allergy Intermediate 09/10/16 Yes metoclopramide Allergy Intermediate 09/10/16 Yes propoxyphene Allergy Intermediate 09/10/16 Yes tramadol Allergy Intermediate 09/10/16 Yes vitamin K2 Allergy Intermediate 09/10/16 Yes I S O L A T I O N *CONTACT* Allergy Unknown 08/03/17 Yes Physical Exam Physical Exam Constitutional: Well developed, well nourished, no acute distress, non-toxic appearance, afebrile. [] HENT: Normocephalic, atraumatic, bilateral external ears normal, oropharynx moist, no oral exudates, nose normal. [] Eyes: PERRLA, EOMI, conjunctiva normal, no discharge. [] Neck: Normal range of motion, no tenderness, supple, no stridor. [] Cardiovascular:Heart rate regular rhythm, no murmur [] Lungs & Thorax: Mild rhonchi in right long, no respiratory distress, no wheezing Abdomen: Bowel sounds normal, soft, no tenderness, no masses, no pulsatile masses. [] Skin: Warm, dry, no erythema, no rash. [] Back: No tenderness, no CVA tenderness. [] Extremities: No tenderness, no cyanosis, no clubbing, ROM intact, no edema. [] Neurologic: Alert and oriented X 3, normal motor function, normal sensory function, no focal deficits noted. [] Psychologic: Affect normal, judgement normal, mood normal. [] Current Patient Data Vital Signs Vital Signs Date Time Temp Pulse Resp B/P (MAP) Pulse Ox O2 Delivery O2 Flow Rate FiO2 07/25/18 06:35 98.3 74 16 99 Room Air EKG EKG [] Radiology/Procedures Radiology/Procedures [address] [address] IMAGING REPORT Signed PATIENT: GWENDOLYN CAVAZOS ACCOUNT: [id number] : 1965 LOCATION: ER AGE: 52 SEX: F EXAM STATUS: PRE ER ORD. PHYSICIAN: DEVIN TUCKER MD REASON: positive blood culture PROCEDURE: CHEST PA & LATERAL CHEST PA LATERAL INDICATION: Positive blood culture, hx of heart disease COMPARISON: Chest radiograph dated 07/30/2017, CT chest dated 07/30/2017 FINDINGS: Small area of consolidation in the right upper lobe along the minor fissure. Additional area of ill-defined heterogenous airspace opacities seen more inferior to this on the frontal view is not significantly changed from prior exam. Normal pulmonary vasculature. No pleural effusion or pneumothorax. Unchanged right IJ central venous catheter. The cardiomediastinal silhouette and great vessels are unchanged. Prior median sternotomy. No acute osseous abnormality. IMPRESSION: 1. Small area of consolidation in the right upper lobe along the minor fissure. Findings are most concerning for infectious process. Recommend continued radiographic follow-up to resolution to exclude the possibility of underlying malignancy. 2. Additional area of ill-defined heterogenous airspace opacities is seen more inferior to this on the frontal view but is not significantly changed from prior exam. This could represent an additional focus of infection. Electronically signed by: Derek To MD (07/25/2018 7:21 AM) [facility] [id number] DICTATED AND SIGNED BY: DEREK TO MD DATE: 07/25/18 0717 CC: CARLOS LING MD; DEVIN TUCKER MD ~ Course & Med Decision Making Course & Med Decision Making Pertinent Labs and Imaging studies reviewed. (See chart for details) Evaluation of patient in ER showed 52-year-old female patient referred by primary care physician with positive blood culture. She did not have hypotension , tachycardia, fever in ER. Labs showed normal white count and lactic acid, chest x-ray showed infiltration. Blood culture was obtained and patient started on antibiotic. Dr. Ling accepted admission at 0844. Dragon Disclaimer Dragon Disclaimer This electronic medical record was generated, in whole or in part, using a voice recognition dictation system. Departure Departure: Impression: Primary Impression: CAP (community acquired pneumonia) Additional Impressions: Bacteremia Migraine headache Anemia Dehydration Hypoalbuminemia Disposition: ADMITTED INPATIENT (at 0845) Admitting Physician: Carlos Ling (accepted admission at 0 844) Condition: IMPROVED Referrals: CARLOS LING MD (PCP) Critical Care Time Critical care time was 70 minutes exclusive of procedures. Problem Qualifiers DEVIN TUCKER MD Jul 25, 2018 06:57
--- NOTE | 2018-07-25 07:25 | RAD ---
CHEST PA LATERAL INDICATION: Positive blood culture, hx of heart disease COMPARISON: Chest radiograph dated 07/30/2017, CT chest dated 07/30/2017 FINDINGS: Small area of consolidation in the right upper lobe along the minor fissure. Additional area of ill-defined heterogenous airspace opacities seen more inferior to this on the frontal view is not significantly changed from prior exam. Normal pulmonary vasculature. No pleural effusion or pneumothorax. Unchanged right IJ central venous catheter. The cardiomediastinal silhouette and great vessels are unchanged. Prior median sternotomy. No acute osseous abnormality. IMPRESSION: 1. Small area of consolidation in the right upper lobe along the minor fissure. Findings are most concerning for infectious process. Recommend continued radiographic follow-up to resolution to exclude the possibility of underlying malignancy. 2. Additional area of ill-defined heterogenous airspace opacities is seen more inferior to this on the frontal view but is not significantly changed from prior exam. This could represent an additional focus of infection. Electronically signed by: Derek To MD (07/25/2018 7:21 AM) [facility]
[2018-07-25 07:54] LABS: BASO # 0.1 x10^3/uL (0.0-0.2); BASO % 1 % (0-3); EOS # 0.2 x10^3/uL (0.0-0.7); EOS % 3 % (0-3); HEMATOCRIT 30.6 % (36.0-47.0); HEMOGLOBIN 9.6 g/dL (12.0-15.5); LYMPH # 1.6 x10^3/uL (1.0-4.8); LYMPH % 21 % (24-48); MEAN CORPUSCULAR HEMOGLOBIN 23 pg (25-35); MEAN CORPUSCULAR HGB CONC 32 g/dL (31-37); MEAN CORPUSCULAR VOLUME 73 fL (79-100); MONO # 0.7 x10^3/uL (0.0-1.1); MONO % 9 % (0-9); NEUT % 66 % (31-73); PLATELET COUNT 341 x10^3/uL (140-400); RED BLOOD COUNT 4.21 x10^6/uL (3.50-5.40); RED CELL DISTRIBUTION WIDTH 16.9 % (11.5-14.5); WHITE BLOOD COUNT 7.6 x10^3/uL (4.0-11.0)
[2018-07-25 08:08] LABS: INFLUENZA A PATIENT NEGATIVE (NEGATIVE); INFLUENZA B PATIENT NEGATIVE (NEGATIVE)
[2018-07-25 08:14] LABS: ALBUMIN 2.9 g/dL (3.4-5.0); ALBUMIN/GLOBULIN RATIO 0.7 (1.0-1.7); CALCIUM 8.4 mg/dL (8.5-10.1); CREATININE 0.7 mg/dL (0.6-1.0); GFR 88.6; POTASSIUM 4.2 mmol/L (3.5-5.1); TOTAL BILIRUBIN 0.1 mg/dL (0.2-1.0); TOTAL PROTEIN 7.3 g/dL (6.4-8.2)
[2018-07-25] MEDS ORDERED: IV NORMAL SALINE 1,000ML 1,000 ML IV ONE (08:30)
[2018-07-25] MEDS ORDERED: VANCOMYCIN 1.25 GM in IV NORMAL SALINE 250ML 250 ML IV ONE (08:30)
[2018-07-25] MEDS ORDERED: PIPERACILLIN/TAZOBACTAM 3.375 GM in IV NORMAL SALINE 50ML 50 ML IV ONE (08:30)
[2018-07-25] MEDS ORDERED: BUTORPHANOL 2 MG VIAL. IV ONE (08:30)
[2018-07-25] MEDS ORDERED: PIPERACILLIN/TAZOBACTAM 3.375 GM VIAL IV ONE (08:33)
[2018-07-25] MEDS ORDERED: IV NORMAL SALINE 50ML 50 ML ONE (08:33)
[2018-07-25 08:35] LABS: PLT ESTIMATE ADEQUATE (ADEQUATE)
[2018-07-25 08:36] LABS: ANISOCYTOSIS SLIGHT; HYPOCHROMIA MOD; POLYCHROMASIA SLIGHT
[2018-07-25 08:37] LABS: MICROCYTOSIS MOD; OVALOCYTES OCC
[2018-07-25 08:38] LABS: TOXIC VACUOLATION PRESENT
[2018-07-25] MEDS: IV NORMAL SALINE 1,000ML 1,000 ML IV SCH ×2 (09:00→18:00)
[2018-07-25 09:21] LABS: BACTERIA,URINE 0 /HPF (0-FEW); BILIRUBIN,URINE NEG (NEG); CLARITY,URINE CLEAR; COLOR,URINE YELLOW; GLUCOSE,URINE NEG (NEG); NITRITE,URINE NEG (NEG); SQUAMOUS EPITHELIAL CELL,UR FEW /LPF; UROBILINOGEN,URINE 0.2 mg/dL (0.2 mg/dL); WBC,URINE OCC /HPF (0-4)
[2018-07-25] MEDS ORDERED: PROMETHAZINE 25 MG SUPP.RECT. PR PRN (10:15)
[2018-07-25] MEDS ORDERED: WARFARIN SODIUM 9 MG PO SCH (10:15)
[2018-07-25 11:00] VITALS: BP 117/76
--- NOTE | 2018-07-25 11:08 | NUR ---
Pharmacy Warfarin Dosing Note S:Pharmacy consulted to assist with anticoagulation therapy started 07/25/18 with target INR: 2 -3 O:GWENDOLYN CAVAZOS is a 52 year old F with DVT/PE LABS: Last INR: 2.4 Last HGB: 9 Last HCT: 30.6 Last PLT: 341 Last dose of 8MG given on 07/24/18 at Previous Regimen: 8MG X2 DAYS/ 6MG X2DAYS/ 4MG X2DAYS Vitamin K given: N Drug Interaction Changes: New Interacting Drug Ongoing Drug Interactions: ZOSYN 3.375 Q6HRS A:INR Within desired Range. Target Range for this patient is: 2 -3 P: Warfarin dose: 6 mg Today at 1600 Bridge Therapy: None Next INR due 07/26/17 @ 0600 Pharmacy anticoagulation service will continue to follow. PRUDENCE YUN RPH, 07/25/18 1363
[2018-07-25] MEDS: VANCOMYCIN PER PHARMACY MC PRN (11:11)
--- NOTE | 2018-07-25 11:11 | NUR ---
Pharmacy Vancomycin Dosing Note S:Consulted to monitor and dose vancomycin started 07/25/18. O:GWENDOLYN CAVAZOS is a 52 year old F with Bacteremia CAP . Height: 5 feet, 5 inches Weight: 45.349897 kg [place] Body Weight: Adjusted Body Weight: Dosing Weight: Actual Other Antibiotics: ZOSYN 3.375GM Q6HRS LABS: Last BUN: 21 Last Creatinine: 0.7 Creatinine Clearance: Last WBC: 7.6 Last Platelets: 341 Tmax (past 24 hours): Microbiology: I/O: Drug Levels: Last level: on at Last dose given 07/25/18 at 0917 Vancomycin Dosing: Loading Dose: 1250 mg x1 Dosing Weight: Actual Target Trough: 15-20 A: Based on: P: 1. Begin Vancomycin 750 mg IV q12h 2. Follow up Trough level on 07/26/18 at 2030 3. Pharmacy will continue to monitor, follow and adjust therapy as needed. PRUDENCE YUN RP, 07/25/18 1111
[2018-07-25] MEDS ORDERED: PROMETHAZINE HCL 25 MG IJ SCH (12:00)
[2018-07-25] MEDS ORDERED: diphenhydrAMINE HCL 25 MG CAPSULE PO PRN (12:00)
[2018-07-25] MEDS: PIPERACILLIN/TAZOBACTAM 3.375 GM in IV NORMAL SALINE 50ML 50 ML IV SCH ×3 (14:54→23:36)
[2018-07-25] MEDS: FERROUS SULFATE 325 MG TABLET. PO SCH ×2 (14:54→20:18)
[2018-07-25 15:00] VITALS: BP 110/72
[2018-07-25] MEDS ORDERED: WARFARIN 6 MG TABLET. PO ONE (16:00)
[2018-07-25 18:31] VITALS: BP 98/55
--- NOTE | 2018-07-25 19:00 | NUR ---
The patient, GWENDOLYN CAVAZOS, 52 y/o, F admitted by CARLOS LING MD, was given written information regarding hospital policies, unit procedures and contact persons. Patient admitted on previous shift, got report from nurse Tsang. Valuables were checked and left at bedside.
[2018-07-25] MEDS: METOPROLOL TART IMMED RELEASE 25 MG TABLET PO SCH (20:16)
[2018-07-25] MEDS: AMITRIPTYLINE HCL 25 MG TABLET PO SCH (20:18)
[2018-07-25] MEDS: VANCOMYCIN 750 MG in IV NORMAL SALINE 250ML 250 ML IV SCH (20:18)
[2018-07-25] MEDS: ONDANSETRON PF 4 MG/2 ML VIAL. IV PRN (22:18)
[2018-07-25 22:22] VITALS: BP 101/66
[2018-07-26] MEDS: IV NORMAL SALINE 1,000ML 1,000 ML IV SCH (03:13)
[2018-07-26] MEDS: BUTORPHANOL 2 MG VIAL. IV PRN ×3 (05:15→23:43)
[2018-07-26] MEDS: PIPERACILLIN/TAZOBACTAM 3.375 GM in IV NORMAL SALINE 50ML 50 ML IV SCH ×4 (05:15→23:38)
[2018-07-26] MEDS: ONDANSETRON PF 4 MG/2 ML VIAL. IV PRN (05:15)
[2018-07-26 05:38] VITALS: BP 94/52
[2018-07-26] MEDS: METOPROLOL TART IMMED RELEASE 25 MG TABLET PO SCH ×2 (08:22→21:00)
[2018-07-26] MEDS ORDERED: WARFARIN SODIUM 10 MG PO SCH (09:00)
[2018-07-26] MEDS: LACTOBACILLUS RHAMNOSUS GG 1 CAPSULE. PO SCH ×2 (09:08→20:59)
[2018-07-26] MEDS: FERROUS SULFATE 325 MG TABLET. PO SCH ×3 (09:08→20:59)
[2018-07-26] MEDS: VANCOMYCIN 750 MG in IV NORMAL SALINE 250ML 250 ML IV SCH ×2 (09:09→21:00)
[2018-07-26] MEDS: PROMETHAZINE 25 MG TABLET. PO PRN ×2 (09:33→17:03)
[2018-07-26 11:02] VITALS: BP 118/73
--- NOTE | 2018-07-26 12:33 | PN ---
DATE: 07/25/2018 SUBJECTIVE: The patient is still resting fairly comfortably, although still having some nausea and severe migraine headaches. Cultures came back from another lab showing gram-negative organisms, somewhat of a mystery. Her chest x-ray was basically showing some possibility of a consolidation in the right upper lobe, probably an infectious consideration. Still waiting for culture reports to come back. Otherwise, she is feeling fairly well. OBJECTIVE: VITAL SIGNS: Blood pressure 94/52, respiration 16, pulse 60, afebrile. GENERAL: The patient is alert and oriented. LUNGS: Diminished throughout, poor movement of air. CARDIOVASCULAR: Regular sinus rhythm. ABDOMEN: Soft, nontender. IMPRESSION AND PLAN: We will go ahead and continue with the IV antibiotic protocol for now until we have final culture reports on her. Pneumonia, bacteremia, sepsis, chronic migraine headaches, dehydration and hypoalbuminemia. Continue to monitor her and continue on IV antibiotic therapy until final cultures are returned. CARLOS LING MD DR: NAJMA/saud JOB#: [id number] / [id number]
--- NOTE | 2018-07-26 12:43 | RAD ---
Examination: CT chest without contrast HISTORY: History of shortness of breath, pneumonia, bacteremia COMPARISON: 07/30/2017 TECHNIQUE: Axial CT images of the chest were performed without contrast. Coronal and sagittal reformats are performed Exposure: One or more of the following individualized dose reduction techniques were utilized for this examination: 1. Automated exposure control 2. Adjustment of the mA and/or kV according to patient size 3. Use of iterative reconstruction technique FINDINGS: Right-sided central line identified with the tip projecting in the distal SVC. The heart size grossly appears unremarkable. Examination limited due to lack of IV contrast. The central airways are patent. There are focal consolidations identified in the right upper lobe, right middle lobe, right lower lobe, left upper lobe and left lower lobe of the lung with the largest measuring 3.2 cm in the right upper lobe of the lung suspicious for septic emboli or multifocal pneumonia or metastasis. No evidence of pleural effusion or pneumothorax. The visualized noncontrasted liver, spleen, adrenals grossly appears unremarkable. Caliber of the aorta grossly appears unremarkable. Mild degenerative changes thoracic spine. IMPRESSION: 1. Multiple focal consolidations identified in the bilateral lungs as described above with the largest identified in the right upper lobe of the lung , suspicious for septic emboli or multifocal pneumonia or metastasis. Follow-up to resolution. The right upper lobe and left lower lobe focal consolidations or masses are new since prior exam. Electronically signed by: Flavio Thorpe MD (07/26/2018 12:39 PM) [facility]
--- NOTE | 2018-07-26 13:09 | NUR ---
Pharmacy Warfarin Dosing Note S:Pharmacy consulted to assist with anticoagulation therapy started 07/25/18 with target INR: 2 -3 O:GWENDOLYN CAVAZOS is a 52 year old F with History of DVT/PE LABS: Last INR: 3.5 Last HGB: 9.6 Last HCT: 30.6 Last PLT: 341 Last dose of 6 mg given on 07/24/18 at 1600 Previous Regimen: 8MG X2 DAYS/ 6MG X2DAYS/ 4MG X2DAYS Vitamin K given: N Drug Interaction Changes: New Interacting Drug Ongoing Drug Interactions: ZOSYN 3.375 Q6HRS A: The INR is above the desired range. We will hold it x1 day, then check the INR tomorrow. P: Warfarin dose: Hold today at 1600 Bridge Therapy: None Next INR due 07/27/18. Pharmacy anticoagulation service will continue to follow. TJ DAMICO RP 07/26/18 1309 Signed: 07/26/18 at 1312 by TJ BUTTERFIELD
[2018-07-26 16:30] VITALS: BP 111/65
[2018-07-26 19:58] VITALS: BP 100/61
[2018-07-26 20:40] LABS: VANC TR 8.7 mcg/mL (10.0-20.0)
[2018-07-26] MEDS: AMITRIPTYLINE HCL 25 MG TABLET PO SCH (20:59)
[2018-07-26] MEDS: VANCOMYCIN PER PHARMACY MC PRN (21:03)
--- NOTE | 2018-07-26 21:03 | NUR ---
Pharmacy Vancomycin Dosing Note S:Consulted to monitor and dose vancomycin started 07/25/18. O:GWENDOLYN CAVAZOS is a 52 year old F with CAP Pneumonia . Height: 5 feet, 5 inches Weight: 45.000112 kg [place] Body Weight: Adjusted Body Weight: Dosing Weight: Actual Other Antibiotics: ZOSYN 3.375GM q6HRS LABS: Last BUN: 21 Last Creatinine: 0.7 Creatinine Clearance: Last WBC: 7.6 Last Platelets: 341 Tmax (past 24 hours): Microbiology: I/O: Drug Levels: Last Trough level: 8.7 on 07/26/18 at 2030 Last dose given 07/26/18 at 0900 Vancomycin Dosing: Loading Dose: 1250 mg x1 Dosing Weight: Actual Target Trough: 15-20 A: Based on: P: 1. Change to Vancomycin 750 mg IV q8hr from 750mg q12hr 2. Follow up Trough level on 07/27/18 at 2030 3. Pharmacy will continue to monitor, follow and adjust therapy as needed. PRUDENCE YUN RP, 07/26/18 2275
[2018-07-26 23:01] VITALS: BP 98/59
[2018-07-27] MEDS: VANCOMYCIN 750 MG in IV NORMAL SALINE 250ML 250 ML IV SCH ×3 (04:50→21:56)
[2018-07-27] MEDS: PIPERACILLIN/TAZOBACTAM 3.375 GM in IV NORMAL SALINE 50ML 50 ML IV SCH ×3 (06:04→18:29)
[2018-07-27] MEDS: BUTORPHANOL 2 MG VIAL. IV PRN ×3 (06:09→21:57)
[2018-07-27] MEDS: PROMETHAZINE 25 MG TABLET. PO PRN ×3 (06:09→21:07)
[2018-07-27 06:28] VITALS: BP 107/62
[2018-07-27 06:37] LABS: CALCIUM 7.8 mg/dL (8.5-10.1); CREATININE 0.7 mg/dL (0.6-1.0); GFR 88.6; POTASSIUM 4.2 mmol/L (3.5-5.1)
[2018-07-27 06:41] LABS: BASO # 0.1 x10^3/uL (0.0-0.2); BASO % 1 % (0-3); EOS # 0.2 x10^3/uL (0.0-0.7); EOS % 4 % (0-3); HEMATOCRIT 27.4 % (36.0-47.0); HEMOGLOBIN 8.7 g/dL (12.0-15.5); LYMPH # 1.5 x10^3/uL (1.0-4.8); LYMPH % 26 % (24-48); MEAN CORPUSCULAR HEMOGLOBIN 23 pg (25-35); MEAN CORPUSCULAR HGB CONC 32 g/dL (31-37); MEAN CORPUSCULAR VOLUME 74 fL (79-100); MONO # 0.6 x10^3/uL (0.0-1.1); MONO % 10 % (0-9); NEUT # 3.4 x10^3uL (1.8-7.7); NEUT % 59 % (31-73); PLATELET COUNT 258 x10^3/uL (140-400); RED BLOOD COUNT 3.73 x10^6/uL (3.50-5.40); WHITE BLOOD COUNT 5.7 x10^3/uL (4.0-11.0)
[2018-07-27] MEDS: LACTOBACILLUS RHAMNOSUS GG 1 CAPSULE. PO SCH ×2 (07:41→21:07)
[2018-07-27] MEDS: FERROUS SULFATE 325 MG TABLET. PO SCH ×3 (07:41→21:07)
[2018-07-27] MEDS: METOPROLOL TART IMMED RELEASE 25 MG TABLET PO SCH ×2 (07:45→21:00)
--- NOTE | 2018-07-27 09:17 | NUR ---
Pharmacy Warfarin Dosing Note S:Pharmacy consulted to assist with anticoagulation therapy started 07/25/18 with target INR: 2 -3 O:GWENDOLYN CAVAZOS is a 52 year old F with History of DVT/PE LABS: Last INR: 4.4 Last HGB: 8.7 Last HCT: 27.4 Last PLT: 258 Last dose was held on 07/26/18 at 1600 Previous Regimen: 8MG X2 DAYS/ 6MG X2DAYS/ 4MG X2DAYS Vitamin K given: N Drug Interaction Changes: New Interacting Drug Ongoing Drug Interactions: ZOSYN 3.375 Q6HRS A: Her INR is still above the desired range. We will hold the dose again today and continue to monitor. P: Warfarin dose: Hold Coumadin today at 1600 Bridge Therapy: None Next INR due 07/28/18 Pharmacy anticoagulation service will continue to follow. TJ DAMICO [facility] 07/27/18 0917 Signed: 07/27/18 at 0920 by JT BUTTERFIELD
[2018-07-27 10:20] VITALS: BP 121/71
[2018-07-27 15:17] VITALS: BP 127/71
[2018-07-27 18:41] VITALS: BP 111/54
[2018-07-27] MEDS: AMITRIPTYLINE HCL 25 MG TABLET PO SCH (21:07)
[2018-07-27 21:33] LABS: VANC TR 14.5 mcg/mL (10.0-20.0)
[2018-07-28 00:22] VITALS: BP 131/75
[2018-07-28] MEDS: PIPERACILLIN/TAZOBACTAM 3.375 GM in IV NORMAL SALINE 50ML 50 ML IV SCH ×5 (00:39→23:54)
--- NOTE | 2018-07-28 02:58 | PN ---
DATE: 07/25/2018 SUBJECTIVE: A 52-year-old female. She has bilobar pneumonia. She has had another positive blood cultures that were sent out to get final evaluation of the gram-negative rods in her blood. The patient otherwise is resting fairly comfortably. She is doing better, but she is on double antibiotics and we are awaiting the final culture report. Her INR is elevated and pharmacy is following that, but otherwise because of this bacteremia and her bilateral lobe pneumonia, she continues on IV antibiotic therapy. She was instructed of such and she will probably end up having to see Pulmonology as an outpatient. For now, we will continue on IV antibiotic therapy and wait for the final report as to the identification of the organism and the culture sensitivity report. OBJECTIVE: VITAL SIGNS: Blood pressure 127/70, respiratory rate 20, pulse 100, afebrile, 95% on room air. GENERAL: The patient is alert and oriented. LUNGS: Diminished in bilateral upper lobes. CARDIOVASCULAR: Regular sinus rhythm, tachy. ABDOMEN: Soft, nontender. EXTREMITIES: No clubbing, cyanosis, nor edema. LABORATORY DATA: INR elevated. IMPRESSION: As noted has a history of pulmonary emboli. For now, sepsis, bacteremia, pneumonia of unspecified etiology, community-acquired, bilateral, gram-negative rods in the blood. Chronic migraine headache, dehydration, hypoalbuminemia. PLAN: We will continue to monitor the patient accordingly and get results. We are waiting for those results from the labs on her. CARLOS LING MD DR: NAJMA/saud JOB#: [id number] / [id number]
[2018-07-28 05:03] VITALS: BP 116/77
[2018-07-28] MEDS: VANCOMYCIN 750 MG in IV NORMAL SALINE 250ML 250 ML IV SCH ×3 (05:09→20:13)
[2018-07-28] MEDS: PROMETHAZINE 25 MG TABLET. PO PRN ×3 (05:12→16:46)
[2018-07-28] MEDS: BUTORPHANOL 2 MG VIAL. IV PRN ×3 (06:11→20:14)
[2018-07-28] MEDS: VANCOMYCIN PER PHARMACY MC PRN (08:03)
--- NOTE | 2018-07-28 08:03 | NUR ---
Pharmacy Vancomycin Dosing Note S:Consulted to monitor and dose vancomycin started 07/25/18. O:GWENDOLYN CAVAZOS is a 52 year old F with CAP Pneumonia . Height: 5 feet, 5 inches Weight: 52.241562 kg Iselin Body Weight: 195.00 Adjusted Body Weight: 135.40 Dosing Weight: Actual Other Antibiotics: ZOSYN 3.375GM q6HRS LABS: Last BUN: 6 Last Creatinine: 0.7 Creatinine Clearance: 80 Last WBC: 5.7 Last Platelets: 258 Microbiology: GRAM NEG RODS IN BLOOD Drug Levels: Last Trough level: 14.5 on 07/27/18 at 2030 Vancomycin Dosing: Loading Dose: 1250 mg x1 Dosing Weight: Actual Target Trough: 15-20 A: Based on the trough of 14.5, we will continue the same dose. P: 1. Continue Vancomycin 750 mg IV q8hrs 2. Follow up trough in 5-7 days. 3. Pharmacy will continue to monitor, follow and adjust therapy as needed. TJ DAMICO [facility] 07/28/18 0803 Signed: 07/28/18 at 0806 by TJ BUTTERFIELD
[2018-07-28] MEDS: METOPROLOL TART IMMED RELEASE 25 MG TABLET PO SCH ×2 (09:00→20:15)
[2018-07-28] MEDS: LACTOBACILLUS RHAMNOSUS GG 1 CAPSULE. PO SCH ×2 (09:24→20:15)
[2018-07-28] MEDS: FERROUS SULFATE 325 MG TABLET. PO SCH ×3 (09:24→20:15)
[2018-07-28 10:47] VITALS: BP 113/73
--- NOTE | 2018-07-28 10:56 | NUR ---
Pharmacy Warfarin Dosing Note S:Pharmacy consulted to assist with anticoagulation therapy started 07/25/18 with target INR: 2 -3 O:GWENDOLYN CAVAZOS is a 52 year old F with DVT/PE LABS: Last INR: 3.0 Last HGB: 8.7 Last HCT: 27.4 Last PLT: 258 Previous Regimen: 8MG X2 DAYS/ 6MG X2DAYS/ 4MG X2DAYS Vitamin K given: N Drug Interaction Changes: New Interacting Drug Ongoing Drug Interactions: ZOSYN 3.375 Q6HRS A: The INR is within the desired range, however, it has dropped significantly since yesterday. We will give her 6mg today, which is her previous average daily dose. P: Warfarin dose: Give Coumadin 6mg po today at 1600. Bridge Therapy: None Next INR due 07/29/18. Pharmacy anticoagulation service will continue to follow. TJ DAMICO [facility] 07/28/18 1057 Signed: 07/28/18 at 1101 by TJ BUTTERFIELD
[2018-07-28 15:29] VITALS: BP 112/71
[2018-07-28] MEDS ORDERED: WARFARIN 6 MG TABLET. PO ONE (17:30)
[2018-07-28] MEDS ORDERED: ALTEPLASE 2 MG VIAL INT CAT ONE (19:15)
[2018-07-28] MEDS: AMITRIPTYLINE HCL 25 MG TABLET PO SCH (20:14)
[2018-07-28 20:22] VITALS: BP 105/65
[2018-07-28 23:01] VITALS: BP 107/68
--- NOTE | 2018-07-29 00:04 | PN ---
DATE: 07/28/2018 SUBJECTIVE: The patient is a 52-year-old female in with bacteremia, sepsis. We are waiting for final culture reports on her blood, which showed gram-negative rods in several different bottles and sent out for further ID. Unfortunately, it looks like it may be pseudomonas growing out of her. She is on Zosyn, so I think probably it should cover and of course, we will have the final sensitivity reports. OBJECTIVE: VITAL SIGNS: Blood pressure 105/65, respiratory rate 20, pulse 66, afebrile. LUNGS: Diminished, but clear. CARDIOVASCULAR: Stable. ABDOMEN: Soft, nontender, no rebound or guarding. Positive bowel sounds, no hepatosplenomegaly noted. EXTREMITIES: No clubbing, cyanosis, nor edema. The patient's port seems to be clean. IMPRESSION: Sepsis, probable bacteremia, possible pseudomonas, chronic migraines, dehydration, hypoalbuminemia. PLAN: Continue on IV antibiotic therapy and make further adjustments according to the results that are coming in, slow but sure. CAROLS LING MD DR: NAJMA/saud JOB#: [id number] / [id number]
[2018-07-29] MEDS: VANCOMYCIN 750 MG in IV NORMAL SALINE 250ML 250 ML IV SCH ×2 (04:48→12:34)
[2018-07-29] MEDS: PROMETHAZINE 25 MG TABLET. PO PRN ×2 (04:49→16:06)
[2018-07-29 05:26] VITALS: BP 109/71
[2018-07-29] MEDS: PIPERACILLIN/TAZOBACTAM 3.375 GM in IV NORMAL SALINE 50ML 50 ML IV SCH ×3 (05:43→17:43)
[2018-07-29] MEDS: LACTOBACILLUS RHAMNOSUS GG 1 CAPSULE. PO SCH ×2 (07:43→20:03)
[2018-07-29] MEDS: FERROUS SULFATE 325 MG TABLET. PO SCH ×3 (07:44→20:03)
[2018-07-29] MEDS: METOPROLOL TART IMMED RELEASE 25 MG TABLET PO SCH ×2 (07:44→20:04)
[2018-07-29] MEDS: BUTORPHANOL 2 MG VIAL. IV PRN ×2 (10:36→16:06)
--- NOTE | 2018-07-29 11:26 | NUR ---
Pharmacy Warfarin Dosing Note S:Pharmacy consulted to assist with anticoagulation therapy started 07/25/18 with target INR: 2 -3 O:GWENDOLYN CAVAZOS is a 52 year old F with DVT/PE LABS: Last INR: 2 Last HGB: 8.7 Last HCT: 27.4 Last PLT: 258 Last dose of 6 mg given on 07/28/18 at 1600 Previous Regimen: 8MG X2 DAYS/ 6MG X2DAYS/ 4MG X2DAYS Vitamin K given: N Drug Interaction Changes: Same Interacting Drug Ongoing Drug Interactions: ZOSYN 3.375 Q6HRS A:INR Within desired Range. Target Range for this patient is: 2 -3 P: Warfarin dose: 6 mg Today at 1600 Bridge Therapy: None Next INR due 07/30/18 @ 0600 Pharmacy anticoagulation service will continue to follow. PRUDENCE YUN RPH, 07/29/18 1126
[2018-07-29 15:36] VITALS: BP 108/68
[2018-07-29] MEDS ORDERED: WARFARIN 6 MG TABLET. PO ONE (16:00)
--- NOTE | 2018-07-29 19:13 | PN ---
DATE: 07/25/2018 SUBJECTIVE: A 52-year-old female with bacteremia, sepsis, pseudomonas grown out of her blood, still waiting for final sensitivity reports. She is doing better overall. OBJECTIVE: VITAL SIGNS: Blood pressure 110/70, respiratory rate 16, pulse 76, afebrile. LUNGS: Diminished, but clear. CARDIOVASCULAR: Regular sinus rhythm. ABDOMEN: Soft, nontender. IMPRESSION: Sepsis with pneumonia, pseudomonas bacteremia, chronic migraines, dehydration, hypoalbuminemia. PLAN: The patient continues on IV antibiotic therapy until we get this final culture report. She has a port in and will continue to be monitored carefully. CARLOS LING MD DR: NAJMA/nts JOB#: [id number] / [id number]
[2018-07-29 19:35] VITALS: BP 99/69
[2018-07-29] MEDS: AMITRIPTYLINE HCL 25 MG TABLET PO SCH (20:03)
[2018-07-29 22:50] VITALS: BP 99/63
[2018-07-30] MEDS: PIPERACILLIN/TAZOBACTAM 3.375 GM in IV NORMAL SALINE 50ML 50 ML IV SCH ×2 (00:24→05:18)
[2018-07-30] MEDS: BUTORPHANOL 2 MG VIAL. IV PRN ×2 (00:29→09:40)
[2018-07-30] MEDS: PROMETHAZINE 25 MG TABLET. PO PRN (05:36)
[2018-07-30 05:55] VITALS: BP 97/68
[2018-07-30 09:00] VITALS: BP 97/68
[2018-07-30] MEDS: METOPROLOL TART IMMED RELEASE 25 MG TABLET PO SCH (09:00)
[2018-07-30] MEDS: LACTOBACILLUS RHAMNOSUS GG 1 CAPSULE. PO SCH (09:36)
[2018-07-30] MEDS: FERROUS SULFATE 325 MG TABLET. PO SCH (09:37)
[2018-07-30] MEDS ORDERED: LACT1CAP19 PO (09:42)
[2018-07-30] MEDS ORDERED: LEVO500T59 PO (09:42)
[2018-07-30] MEDS ORDERED: WARF6TAB47 PO (09:42)
--- NOTE | 2018-07-30 10:44 | DS ---
DATE OF DISCHARGE: 07/25/2018 HOSPITAL COURSE: A 52-year-old female came in with sepsis, pseudomonas was growing out of her blood. The patient's x-rays, CAT scans demonstrated multiple focal consolidations bilateral lungs with large identified right upper lobe of the lung suspicious for septic emboli or multifocal pneumonia or metastasis. The patient has done remarkably better with IV antibiotic therapy. She was on Zosyn and course continued on her warfarin and she is on chronic warfarin therapy. In any case, the patient is making good progress. She will be discharged home. Culture sensitivities of the bacteremia shows Pseudomonas to be very sensitive to Levaquin orally, so we will keep her on Levaquin at least for another 2 weeks. In the meantime, she will be seen by her test rack operator, . the patient will be discharged home. She understands the seriousness of her situation and she will continue to be monitored carefully as an outpatient. IMPRESSION: Sepsis, pseudomonas pneumonia, pseudomonas unknown origin, bacteremia as indicated, chronic migraine headaches, pseudohypocalcemia, moderate protein malnutrition, anemia of chronic disease. The patient will be discharged home. Regular diet, decreased activity. Follow up with Pulmonology as well as primary. See MRAD. CARLOS LING MD DR: NAJMA/saud JOB#: [id number] / [id number]
--- NOTE | 2018-07-30 12:15 | NUR ---
Discharge Note: GWENDOLYN CAVAZOS [address] Discharge instructions and discharge home medications reviewed with patient and a copy given. All questions have been answered and understanding verbalized. The following instructions and handouts were given: medications, follow up instructions, prescriptions, and educational handouts given. Discontinued lines and drains: [place] to right chest left intact. Patient discharged to home with father via private vehicle.
== END 2018-07-30 10:45 | disposition home or self-care (01) | DRG 871 ==
LOC: ER 06:25 → 1 SOUTH 09:40
PROVIDERS: ADMIT Family Medicine; ATTEND Family Medicine
DX: A41.9 Sepsis, unspecified organism (principal); J15.1 Pneumonia due to Pseudomonas; E44.0 Moderate protein-calorie malnutrition; E86.0 Dehydration; G43.909 Migraine, unspecified, not intractable, without status migrainosus; R79.1 Abnormal coagulation profile; Z79.01 Long term (current) use of anticoagulants; Z86.711 Personal history of pulmonary embolism; Z98.51 Tubal ligation status; Z90.49 Acquired absence of other specified parts of digestive tract; Z90.710 Acquired absence of both cervix and uterus; Z79.899 Other long term (current) drug therapy; D63.8 Anemia in other chronic diseases classified elsewhere
CPT/HCPCS: 36415; 71046; 71250; 80048; 80053; 80202; 81001; 83605; 84145; 85025; 85610; 85730; 87040; 87186; 87205; 87804; 96365; 96368; 96375; J0595; J2405; J2543; J2997; J3370; J7050; Q0169; 99291-25; J7030

== ENCOUNTER 2018-08-25 11:29 | Emergency (ER) | payer BC, MEDICARE ==
[~2018-08-25] VITALS: Ht 165.1 cm; Wt 46.0 kg
[~2018-08-25 11:29] MED LIST changes: +LACT1CAP19 PO; +LEVO500T59 PO; +WARF6TAB47 PO
[2018-08-25 11:39] VITALS: BP 132/85
--- NOTE | 2018-08-25 11:51 | PHYS DOC ---
Past History Past Medical History: Abscess, DVT, Heart Disease, Migraines, MRSA Past Surgical History: Appendectomy, Cholecystectomy, Hysterectomy, Tubal ligation, Other Smoking: Non-smoker Alcohol Use: None Drug Use: None Adult General Chief Complaint Chief Complaint: HEADACHE HPI HPI Patient is a 52 year old female with history of migraine headache and previous emergency room visit present with complaining of migraine headache for the last 2 weeks as a constant forearm Tylenol pressure pain with nausea and photophobia without vomiting, fever and chills, neck pain, focal neuro deficit. She rated her pain 10 over 10 and states she was seen by her primary care physician prior to arrival to ER and had shot of Phenergan without change of her pain. Patient states her pain usually getting better with taking Nubain. Review of Systems Review of Systems Constitutional: Denies fever or chills [] Eyes: Denies change in visual acuity, redness, or eye pain [] HENT: Denies nasal congestion or sore throat [] Respiratory: Denies cough or shortness of breath [] Cardiovascular: No additional information not addressed in HPI [] GI: Denies abdominal pain, vomiting, bloody stools or diarrhea ,reports nausea : Denies dysuria or hematuria [] Musculoskeletal: Denies back pain or joint pain [] Integument: Denies rash or skin lesions [] Neurologic: Reports headache, denies focal weakness or sensory changes [] Endocrine: Denies polyuria or polydipsia [] All other systems were reviewed and found to be within normal limits, except as documented in this note. Current Medications Current Medications Current Medications Medications (Trade) Dose Ordered Sig/Luis Eduardo Start Time Stop Time Status Last Admin Dose Admin Nalbuphine HCl (Nubain) 10 mg 1X ONCE 08/25/18 11:45 08/25/18 11:46 UNV Allergies Allergies Allergies Coded Allergies Type Severity Reaction Last Updated Verified acetaminophen Allergy Severe 09/10/16 Yes hydrocodone Allergy Severe 09/10/16 Yes clarithromycin Allergy Intermediate 09/10/16 Yes codeine Allergy Intermediate 09/10/16 Yes guaifenesin Allergy Intermediate 03/28/16 Yes meperidine Allergy Intermediate 09/10/16 Yes metoclopramide Allergy Intermediate 09/10/16 Yes propoxyphene Allergy Intermediate 09/10/16 Yes tramadol Allergy Intermediate 09/10/16 Yes vitamin K2 Allergy Intermediate 09/10/16 Yes I S O L A T I O N *CONTACT* Allergy Unknown 07/30/18 Yes rivaroxaban Adverse Reaction Unknown HEMATOMA 07/27/18 Yes Physical Exam Physical Exam Constitutional: Well developed, well nourished, mild acute distress, non-toxic appearance. [] HENT: Normocephalic, atraumatic, bilateral external ears normal, oropharynx moist, no oral exudates, nose normal. [] Eyes: PERRLA, EOMI, conjunctiva normal, no discharge. [] Neck: Normal range of motion, no tenderness, supple, no stridor. [] Cardiovascular:Heart rate regular rhythm, no murmur [] Lungs & Thorax: Bilateral breath sounds clear to auscultation [] Abdomen: Bowel sounds normal, soft, no tenderness, no masses, no pulsatile masses. [] Skin: Warm, dry, no erythema, no rash. [] Back: No tenderness, no CVA tenderness. [] Extremities: No tenderness, no cyanosis, no clubbing, ROM intact, no edema. [] Neurologic: Alert and oriented X 3, normal motor function, normal sensory function, no focal deficits noted. [] Psychologic: Affect normal, judgement normal, mood normal. [] Current Patient Data Vital Signs Vital Signs Date Time Temp Pulse Resp B/P (MAP) Pulse Ox O2 Delivery O2 Flow Rate FiO2 08/25/18 11:39 98.3 105 16 97 Room Air EKG EKG [] Radiology/Procedures Radiology/Procedures [] Course & Med Decision Making Course & Med Decision Making Evaluation of patient in ER showed 52-year-old female patient with complaining of migraine headache for 2 weeks without abnormal physical exam. Patient treated with Nubain and felt better. Patient was advised to follow-up with her primary care physician for treatment for prevention of migraine headache. Dragon Disclaimer Dragon Disclaimer This electronic medical record was generated, in whole or in part, using a voice recognition dictation system. Departure Departure: Impression: Primary Impression: Migraine headache Additional Impression: Nausea Disposition: HOME, SELF-CARE (at 1212) Condition: IMPROVED Referrals: CARLOS LING MD (PCP) Patient Instructions: Migraine Headache, Nausea, Adult Additional Instructions: Drink plenty of liquids Follow-up with your primary care physician in 3-5 days Return to ER if not getting better Continue home medication Problem Qualifiers DEVIN TUCKER MD Aug 25, 2018 11:50
[2018-08-25] MEDS ORDERED: NALBUPHINE 10 MG/ML AMPUL. IM ONE (12:10)
== END 2018-08-25 12:22 | disposition home or self-care (01) ==
LOC: ER 11:29
DX: G43.909 Migraine, unspecified, not intractable, without status migrainosus (principal); Z86.718 Personal history of other venous thrombosis and embolism; Z86.14 Personal history of Methicillin resistant Staphylococcus aureus infection; Z88.6 Allergy status to analgesic agent; Z88.5 Allergy status to narcotic agent; Z88.1 Allergy status to other antibiotic agents; Z88.8 Allergy status to other drugs, medicaments and biological substances; Z91.041 Radiographic dye allergy status
CPT/HCPCS: 96372; 99283; J2300

== ENCOUNTER 2018-09-11 11:31 | Emergency (ER) | payer BC, MEDICARE ==
[~2018-09-11] VITALS: Ht 165.1 cm; Wt 49.9 kg
[2018-09-11] MEDS ORDERED: IV NORMAL SALINE 1,000ML 1,000 ML IV ONE (12:15)
[2018-09-11] MEDS ORDERED: diphenhydrAMINE 50 MG/ML VIAL IVP ONE (12:30)
[2018-09-11] MEDS ORDERED: PROMETHAZINE 25 MG TABLET. PO ONE (12:30)
[2018-09-11] MEDS ORDERED: NALBUPHINE 10 MG/ML AMPUL. IV ONE (12:30)
--- NOTE | 2018-09-11 12:34 | PHYS DOC ---
Past History Past Medical History: Abscess, DVT, Heart Disease, Migraines, MRSA Past Surgical History: Appendectomy, Cholecystectomy, Hysterectomy, Tubal ligation, Other Smoking: Non-smoker Alcohol Use: None Drug Use: None Adult General Chief Complaint Chief Complaint: HEADACHE HPI HPI 53-year-old female presents with headache. The patient has a history of migraines and has had a migraine for the last 1-1/2 weeks. She has very few headache free days in the month. She is allergic to multiple medications. She has not been able to tolerate any preventative medications. She does take Tylenol as needed. The patient typically goes to her PCP for an injection of Nubain as this is one of the only medication she is not allergic to. It is on [facility], and her physician does not have any. The patient also states that Benadryl and Phenergan with the Nubain 10 to help with her headache the most. She denies fever or chills. This headache is similar to previous. Review of Systems Review of Systems Constitutional: Denies fever or chills [] Eyes: Denies change in visual acuity, redness, or eye pain [] HENT: Denies nasal congestion or sore throat [] Respiratory: Denies cough or shortness of breath [] Cardiovascular: No additional information not addressed in HPI [] GI: Denies abdominal pain, nausea, vomiting, bloody stools or diarrhea [] : Denies dysuria or hematuria [] Musculoskeletal: Denies back pain or joint pain [] Integument: Denies rash or skin lesions [] Neurologic: Headache[] Endocrine: Denies polyuria or polydipsia [] All other systems were reviewed and found to be within normal limits, except as documented in this note. Current Medications Current Medications Current Medications Medications (Trade) Dose Ordered Sig/Luis Eduardo Start Time Stop Time Status Last Admin Dose Admin Diphenhydramine HCl (Benadryl) 25 mg 1X ONCE 09/11/18 12:30 09/11/18 12:31 DC Nalbuphine HCl (Nubain) 10 mg 1X ONCE 09/11/18 12:30 09/11/18 12:31 DC Promethazine HCl (Phenergan) 25 mg 1X ONCE 09/11/18 12:30 09/11/18 12:31 DC Sodium Chloride 1,000 ml @ 1,000 mls/hr 1X ONCE 09/11/18 12:15 09/11/18 13:14 Allergies Allergies Allergies Coded Allergies Type Severity Reaction Last Updated Verified acetaminophen Allergy Severe 09/10/16 Yes hydrocodone Allergy Severe 09/10/16 Yes clarithromycin Allergy Intermediate 09/10/16 Yes codeine Allergy Intermediate 09/10/16 Yes guaifenesin Allergy Intermediate 03/28/16 Yes meperidine Allergy Intermediate 09/10/16 Yes metoclopramide Allergy Intermediate 09/10/16 Yes propoxyphene Allergy Intermediate 09/10/16 Yes tramadol Allergy Intermediate 09/10/16 Yes vitamin K2 Allergy Intermediate 09/10/16 Yes I S O L A T I O N *CONTACT* Allergy Unknown 07/30/18 Yes sumatriptan Allergy Unknown 09/11/18 Yes rivaroxaban Adverse Reaction Unknown HEMATOMA 07/27/18 Yes Physical Exam Physical Exam Constitutional: Well developed, well nourished, no acute distress, non-toxic appearance. [] HENT: Normocephalic, atraumatic, bilateral external ears normal, oropharynx moist, no oral exudates, nose normal. [] Eyes: PERRLA, EOMI, conjunctiva normal, no discharge. [] Neck: Normal range of motion, no tenderness, supple, no stridor. [] Cardiovascular:Heart rate regular rhythm, no murmur [] Lungs & Thorax: Bilateral breath sounds clear to auscultation [] Abdomen: Bowel sounds normal, soft, no tenderness, no masses, no pulsatile masses. [] Skin: Warm, dry, no erythema, no rash. [] Back: No tenderness, no CVA tenderness. [] Extremities: No tenderness, no cyanosis, no clubbing, ROM intact, no edema. [] Neurologic: Alert and oriented X 3, normal motor function, normal sensory function, no focal deficits noted. [] Psychologic: Affect normal, judgement normal, mood concerned. [] Current Patient Data Vital Signs Vital Signs Date Time Temp Pulse Resp B/P (MAP) Pulse Ox O2 Delivery O2 Flow Rate FiO2 09/11/18 11:40 98.9 82 20 98 Room Air EKG EKG [] Radiology/Procedures Radiology/Procedures [] Course & Med Decision Making Course & Med Decision Making Pertinent Labs and Imaging studies reviewed. (See chart for details) I have ordered 10 mg of Nubain, 1 L normal saline, 25 mg of Benadryl IV, and oral Phenergan. Patient has had some improvement in her pain with treatment. She is stable for discharge at this time. [] Dragon Disclaimer Dragon Disclaimer This electronic medical record was generated, in whole or in part, using a voice recognition dictation system. Departure Departure: Impression: Primary Impression: Migraine headache Disposition: HOME, SELF-CARE Condition: STABLE Referrals: CARLOS LING MD (PCP) Patient Instructions: Recurrent Migraine Headache Problem Qualifiers Primary Impression: Migraine headache Migraine type: without aura Status migrainosus presence: with status migrainosus Intractability: intractable Qualified Codes: G43.011 - Migraine without aura, intractable, with status migrainosus AUSTIN JACKSON DO Sep 11, 2018 12:34
[2018-09-11 13:42] VITALS: BP 120/72
== END 2018-09-11 13:53 | disposition home or self-care (01) ==
LOC: ER 11:31
DX: G43.011 Migraine without aura, intractable, with status migrainosus (principal); Z86.718 Personal history of other venous thrombosis and embolism; Z88.6 Allergy status to analgesic agent; Z88.5 Allergy status to narcotic agent; Z88.1 Allergy status to other antibiotic agents; Z91.041 Radiographic dye allergy status; Z88.8 Allergy status to other drugs, medicaments and biological substances
CPT/HCPCS: 96374; 96375; 99283; J1200; J2300; Q0169; J7030

== ENCOUNTER → 2018-11-05 | Outpatient (CLI) | payer BC, MEDICARE ==
--- NOTE | 2018-11-05 12:17 | RAD ---
Thyroid ultrasound, 11/05/2018: HISTORY: Follow-up goiter The right lobe of the gland measures 3.6 x 1.4 x 1.4 cm while the left lobe of the gland measures 3.2 x 1.3 x 0.9 cm. There is increased vascularity in both lobes. The thyroid echo pattern is heterogeneous. A tiny 2 mm hyperechoic nodule is noted in the lower pole the right lobe of the gland. There appears to be a 1 cm isoechoic nodule in the mid to lower aspect of the left lobe of the gland, although is difficult to separate from the adjacent heterogeneous thyroid tissue. A similar appearance was present on the previous study of 10/28/2017. Other possible isoechoic nodules described on the previous study are not currently visualized within this heterogeneous gland. No new or enlarging thyroid nodules are seen. No suspicious thyroid nodules or calcifications are evident. IMPRESSION: Stable multinodular thyroid gland as described above. No suspicious nodules warranting biopsy are delineated. Electronically signed by: Santiago Riley MD (11/05/2018 12:14 PM) [facility]
== END | disposition home or self-care (01) ==
LOC: US 09:17
PROVIDERS: ATTEND Family Medicine
DX: E04.2 Nontoxic multinodular goiter (principal)
CPT/HCPCS: 76536

== ENCOUNTER → 2018-11-05 | Outpatient (CLI) | payer BC, MEDICARE ==
--- NOTE | 2018-11-05 10:23 | RAD ---
CT of the chest without contrast, 11/05/2018: HISTORY: Follow-up lung masses Noncontrast scans were obtained and compared to a study from 07/26/2018. Bilateral irregular parenchymal opacities seen on the previous study have regressed. The largest opacity seen laterally in the right upper lobe on the previous study has completely resolved as have several others. A 9 mm slightly spiculated nodule in the right upper lobe seen on image 48 of series #2 is unchanged. There is a slightly smaller similar nodule in the right upper lobe seen on image 75 of series #2 which is unchanged. A 5 mm nodule seen in the left upper lobe on image 70 of series #2 is unchanged. A similar sized subpleural nodule in the lateral aspect of left upper lobe seen on image 58 is also unchanged. There are a few other scattered residual linear opacities in both lungs. There is a calcified granuloma in the left lower lobe. There is no evidence of pleural fluid. A right central venous catheter extends into the superior aspect of the right atrium. The thoracic aorta is of normal caliber. No mediastinal adenopathy is seen. IMPRESSION: 1. Scattered areas of pulmonary consolidation seen on 07/26/2018 have largely resolved and were presumably inflammatory in nature. There are couple of small residual, stable pulmonary opacities as described above. Further CT follow-up is suggested to exclude a coexisting neoplastic process. 2. No new chest abnormality is detected. PQRS Compliance Statement: One or more of the following individualized dose reduction techniques were utilized for this examination: 1. Automated exposure control 2. Adjustment of the mA and/or kV according to patient size 3. Use of iterative reconstruction technique Electronically signed by: Santiago Riley MD (11/05/2018 10:20 AM) [facility]
== END | disposition home or self-care (01) ==
LOC: CT 09:27
PROVIDERS: ATTEND Internal Medicine Critical Care Medicine
DX: J84.10 Pulmonary fibrosis, unspecified (principal); R91.8 Other nonspecific abnormal finding of lung field
CPT/HCPCS: 71250

== ENCOUNTER 2018-12-03 16:14 | Emergency (ER) | payer BC, MEDICARE ==
[~2018-12-03] VITALS: Ht 165.1 cm; Wt 51.0 kg
[2018-12-03 16:14] VITALS: BP 125/87
[2018-12-03] MEDS ORDERED: IV NORMAL SALINE 1,000ML 1,000 ML IV ONE (17:15)
[2018-12-03] MEDS ORDERED: diphenhydrAMINE 50 MG/ML VIAL IVP ONE (17:15)
--- NOTE | 2018-12-03 17:22 | PHYS DOC ---
Past History Past Medical History: Abscess, Anemia, DVT, Heart Disease, Migraines, MRSA, Other (EVELYN ARORA MD) Past Surgical History: Appendectomy, Cholecystectomy, Coronary Bypass Surgery, Hysterectomy, Tubal ligation, Other (EVELYN ARORA MD) Smoking: Non-smoker Alcohol Use: None Drug Use: None (EVELYN ARORA MD) Adult General Chief Complaint Chief Complaint: HEADACHE HPI HPI Patient is a 53 year old female who is presenting with mirgane. Similar usual migraine not thunderclap, frontal face area worse with weather She has an extensive medical and surgical history and has been having migranes since she was a child. She saw her doctor on Thursday who gave her Noroflex, Promethrin, Toradol, and Protonix, none of which improved the headache. She has had Nubaine in the past with some improvement. She is on Coumadin but she has had no head trauma she says this feels very similar her usual migraines just lasting longer at baseline she has very subtle handgrip weakness on the left which is unchanged she tells me (EVELYN ARORA MD) Review of Systems Review of Systems Constitutional: Denies fever or chills [] Eyes: Denies change in visual acuity, redness, or eye pain [] HENT: Respiratory: Denies cough or shortness of breath [] Musculoskeletal: Denies back pain or joint pain [] Integument: Denies rash or skin lesions [] All other systems were reviewed and found to be within normal limits, except as documented in this note. (EVELYN ARORA MD) Current Medications Current Medications Current Medications Medications (Trade) Dose Ordered Sig/Luis Eduardo Start Time Stop Time Status Last Admin Dose Admin Diphenhydramine HCl (Benadryl) 25 mg 1X ONCE 12/03/18 17:15 12/03/18 17:16 Nalbuphine HCl (Nubain) 10 mg 1X ONCE 12/03/18 17:30 12/03/18 17:31 Sodium Chloride 1,000 ml @ 1,000 mls/hr 1X ONCE 12/03/18 17:15 12/03/18 18:14 (EVELYN ARORA MD) Allergies Allergies Allergies Coded Allergies Type Severity Reaction Last Updated Verified acetaminophen Allergy Severe 09/10/16 Yes hydrocodone Allergy Severe 09/10/16 Yes clarithromycin Allergy Intermediate 09/10/16 Yes codeine Allergy Intermediate 09/10/16 Yes guaifenesin Allergy Intermediate 03/28/16 Yes meperidine Allergy Intermediate 09/10/16 Yes metoclopramide Allergy Intermediate 09/10/16 Yes propoxyphene Allergy Intermediate 09/10/16 Yes tramadol Allergy Intermediate 09/10/16 Yes vitamin K2 Allergy Intermediate 09/10/16 Yes I S O L A T I O N *CONTACT* Allergy Unknown 07/30/18 Yes erenumab-aooe Allergy Unknown Itching 12/03/18 Yes sumatriptan Allergy Unknown 09/11/18 Yes rivaroxaban Adverse Reaction Unknown HEMATOMA 07/27/18 Yes (EVELYN ARORA MD) Physical Exam Physical Exam Constitutional: Well developed, well nourished, no acute distress, non-toxic appearance. [] HENT: Normocephalic, atraumatic, bilateral external ears normal, oropharynx moist, no oral exudates, nose normal. [] Eyes: PERRLA, EOMI, conjunctiva normal, no discharge. [] Neck: Normal range of motion, no tenderness, supple, no stridor. [] Cardiovascular:Heart rate regular rhythm, no murmur [] Lungs & Thorax: Bilateral breath sounds clear to auscultation [] Abdomen: Bowel sounds normal, soft, no tenderness, no masses, no pulsatile masses. [] Skin: Warm, dry, no erythema, no rash. [] Back: No tenderness, no CVA tenderness. [] Extremities: No tenderness, no cyanosis, no clubbing, ROM intact, no edema. [] Neurologic: Alert and oriented X 3, normal motor function, normal sensory function, no focal deficits noted. []Except for possible very subtle weakness left personal caregiver she tells me this is old in addition she has a esotropia on the right also old Psychologic: Affect normal, judgement normal, mood normal. [] (EVELYN ARORA MD) Current Patient Data Vital Signs Vital Signs Date Time Temp Pulse Resp B/P (MAP) Pulse Ox O2 Delivery O2 Flow Rate FiO2 12/03/18 16:14 99.8 80 18 98 (EVELYN ARORA MD) EKG EKG [] (EVELYN ARORA MD) Radiology/Procedures Radiology/Procedures [] (EVELYN ARORA MD) Course & Med Decision Making Course & Med Decision Making Pertinent Labs and Imaging studies reviewed. (See chart for details) []Very likely typical migraine patient was given her usual migraine cocktail at this point we're observing her for improvement care to Dr. Unger pending finalization (EVELYN ARORA MD) Dragon Disclaimer Dragon Disclaimer This electronic medical record was generated, in whole or in part, using a voice recognition dictation system. (EVELYN ARORA MD) Departure Departure: Impression: Primary Impression: Migraine headache Disposition: HOME, SELF-CARE Condition: STABLE Referrals: CARLOS LING MD (PCP) Patient Instructions: Migraine Headache Problem Qualifiers Primary Impression: Migraine headache Migraine type: unspecified Status migrainosus presence: without status migrainosus Intractability: not intractable Qualified Codes: G43.909 - Migraine, unspecified, not intractable, without status migrainosus EVELYN ARORA MD December 03, 2018 17:22 JUSTIN UNGER Jr. DO December 03, 2018 19:02
[2018-12-03] MEDS ORDERED: NALBUPHINE 10 MG/ML AMPUL. IV ONE (17:30)
[2018-12-03] MEDS ORDERED: NALBUPHINE 10 MG/ML AMPUL. IM ONE (17:45)
[2018-12-03] MEDS ORDERED: diphenhydrAMINE 50 MG/ML VIAL IM ONE (17:45)
== END 2018-12-03 19:05 | disposition home or self-care (01) ==
LOC: ER 16:14
DX: G43.909 Migraine, unspecified, not intractable, without status migrainosus (principal); Z86.2 Personal history of diseases of the blood and blood-forming organs and certain disorders involving the immune mechanism; Z86.718 Personal history of other venous thrombosis and embolism; Z86.14 Personal history of Methicillin resistant Staphylococcus aureus infection; Z95.1 Presence of aortocoronary bypass graft; Z88.6 Allergy status to analgesic agent; Z88.5 Allergy status to narcotic agent; Z88.1 Allergy status to other antibiotic agents; Z88.8 Allergy status to other drugs, medicaments and biological substances; Z91.041 Radiographic dye allergy status
CPT/HCPCS: 96372; 99284; J1200; J2300

== ENCOUNTER 2019-03-04 17:49 | Emergency (ER) | payer BC, MEDICARE ==
[2019-03-04] MEDS ORDERED: KETOROLAC 30 MG/ML VIAL. IV ONE (18:15)
[2019-03-04] MEDS ORDERED: NALBUPHINE 10 MG/ML AMPUL. IV ONE (18:15)
[2019-03-04] MEDS ORDERED: IV NORMAL SALINE 1,000ML 1,000 ML IV ONE (18:15)
--- NOTE | 2019-03-04 18:19 | PHYS DOC ---
Past History Past Medical History: Migraines Past Surgical History: No Surgical History Smoking: Non-smoker Alcohol Use: None Drug Use: None Adult General Chief Complaint Chief Complaint: HEADACHE HPI HPI 53-year-old female presents with headache. She has had a migraine for the last 8 days. This headache feels similar to her previous. She is allergic to multiple medications. She has only tried Tylenol at home. This has not worked. The patient's long history of migraines. Due to her medication sensitivities, she has been unable to take a preventative medication. She denies fever or chills. She has no new symptoms. She denies numbness, tingling or decreased strength. Review of Systems Review of Systems Constitutional: Denies fever or chills [] Eyes: Photophobia. Denies change in visual acuity, redness, or eye pain [] HENT: Denies nasal congestion or sore throat [] Respiratory: Denies cough or shortness of breath [] Cardiovascular: No additional information not addressed in HPI [] GI: Denies abdominal pain, nausea, vomiting, bloody stools or diarrhea [] : Denies dysuria or hematuria [] Musculoskeletal: Denies back pain or joint pain [] Integument: Denies rash or skin lesions [] Neurologic: Headache. Denies focal weakness or sensory changes [] Endocrine: Denies polyuria or polydipsia [] All other systems were reviewed and found to be within normal limits, except as documented in this note. Current Medications Current Medications Current Medications Medications (Trade) Dose Ordered Sig/Luis Eduardo Start Time Stop Time Status Last Admin Dose Admin Ketorolac Tromethamine (Toradol 30mg Vial) 30 mg 1X ONCE 03/04/19 18:15 03/04/19 18:16 Nalbuphine HCl (Nubain) 10 mg 1X ONCE 03/04/19 18:15 03/04/19 18:16 UNV Sodium Chloride 1,000 ml @ 1,000 mls/hr 1X ONCE 03/04/19 18:15 03/04/19 19:14 Allergies Allergies Allergies Coded Allergies Type Severity Reaction Last Updated Verified acetaminophen Allergy Severe 09/10/16 Yes hydrocodone Allergy Severe 09/10/16 Yes clarithromycin Allergy Intermediate 09/10/16 Yes codeine Allergy Intermediate 09/10/16 Yes guaifenesin Allergy Intermediate 03/28/16 Yes meperidine Allergy Intermediate 09/10/16 Yes metoclopramide Allergy Intermediate 09/10/16 Yes propoxyphene Allergy Intermediate 09/10/16 Yes tramadol Allergy Intermediate 09/10/16 Yes vitamin K2 Allergy Intermediate 09/10/16 Yes I S O L A T I O N *CONTACT* Allergy Unknown 07/30/18 Yes erenumab-aooe Allergy Unknown Itching 12/03/18 Yes sumatriptan Allergy Unknown 09/11/18 Yes rivaroxaban Adverse Reaction Unknown HEMATOMA 07/27/18 Yes Physical Exam Physical Exam Constitutional: Well developed, well nourished, no acute distress, non-toxic appearance. [] HENT: Normocephalic, atraumatic, bilateral external ears normal, oropharynx moist, no oral exudates, nose normal. [] Eyes: Photophobic. PERRLA, EOMI, conjunctiva normal, no discharge. [] Neck: Normal range of motion, no tenderness, supple, no stridor. [] Cardiovascular:Heart rate regular rhythm, no murmur [] Lungs & Thorax: Bilateral breath sounds clear to auscultation [] Abdomen: Bowel sounds normal, soft, no tenderness, no masses, no pulsatile masses. [] Skin: Warm, dry, no erythema, no rash. [] Back: No tenderness, no CVA tenderness. [] Extremities: No tenderness, no cyanosis, no clubbing, ROM intact, no edema. [] Neurologic: Alert and oriented X 3, normal motor function, normal sensory function, no focal deficits noted. [] Psychologic: Affect normal, judgement normal, mood normal. [] Current Patient Data Vital Signs Vital Signs Date Time Temp Pulse Resp B/P (MAP) Pulse Ox O2 Delivery O2 Flow Rate FiO2 03/04/19 17:59 98.1 81 18 100 Room Air EKG EKG [] Radiology/Procedures Radiology/Procedures [] Course & Med Decision Making Course & Med Decision Making Pertinent Labs and Imaging studies reviewed. (See chart for details) The patient's labs are unremarkable. Her creatinine is normal. I gave the patient 10 mg of Nubain IV and 30 mg of Toradol. She is having some improvement in her pain. She is still nauseous. She is able to take Phenergan. We will give her some here. She would like to go home. I believe this is reasonable. She is stable for discharge at this time. [] Dragon Disclaimer Dragon Disclaimer This electronic medical record was generated, in whole or in part, using a voice recognition dictation system. Departure Departure: Impression: Primary Impression: Migraine headache Disposition: 01 HOME, SELF-CARE Condition: STABLE Referrals: CARLOS LING MD (PCP) Patient Instructions: Recurrent Migraine Headache, [id number] Problem Qualifiers Primary Impression: Migraine headache Migraine type: without aura Status migrainosus presence: with status migrainosus Intractability: intractable Qualified Codes: G43.011 - Migraine without aura, intractable, with status migrainosus AUSTIN JACKSON DO Mar 04, 2019 18:18
[2019-03-04 18:39] LABS: BASO # 0.1 x10^3/uL (0.0-0.2); BASO % 1 % (0-3); EOS # 0.1 x10^3/uL (0.0-0.7); EOS % 2 % (0-3); HEMATOCRIT 30.1 % (36.0-47.0); HEMOGLOBIN 9.1 g/dL (12.0-15.5); LYMPH % 29 % (24-48); MEAN CORPUSCULAR HEMOGLOBIN 20 pg (25-35); MEAN CORPUSCULAR HGB CONC 30 g/dL (31-37); MEAN CORPUSCULAR VOLUME 67 fL (79-100); MONO # 0.6 x10^3/uL (0.0-1.1); MONO % 9 % (0-9); NEUT % 59 % (31-73); PLATELET COUNT 424 x10^3/uL (140-400); WHITE BLOOD COUNT 6.7 x10^3/uL (4.0-11.0)
[2019-03-04] MEDS ORDERED: PROMETHAZINE 25 MG TABLET. PO ONE (18:45)
[2019-03-04 18:48] LABS: BACTERIA,URINE 0 /HPF (0-FEW); BILIRUBIN,URINE NEG (NEG); CLARITY,URINE CLEAR; COLOR,URINE YELLOW; GLUCOSE,URINE NEG (NEG); NITRITE,URINE NEG (NEG); RBC,URINE 0 /HPF (0-2); SQUAMOUS EPITHELIAL CELL,UR OCC /LPF; UROBILINOGEN,URINE 0.2 mg/dL (0.2 mg/dL); WBC,URINE OCC /HPF (0-4)
[2019-03-04 18:51] LABS: ALBUMIN 3.5 g/dL (3.4-5.0); ALBUMIN/GLOBULIN RATIO 0.8 (1.0-1.7); CALCIUM 8.5 mg/dL (8.5-10.1); CREATININE 0.7 mg/dL (0.6-1.0); GFR 88.2; TOTAL BILIRUBIN 0.2 mg/dL (0.2-1.0); TOTAL PROTEIN 7.9 g/dL (6.4-8.2)
[2019-03-04 18:52] LABS: POTASSIUM 3.6 mmol/L (3.5-5.1)
[2019-03-04 20:50] VITALS: BP 125/77
[2019-03-04 21:27] LABS: ANISOCYTOSIS SLIGHT; HYPOCHROMIA SLIGHT; MICROCYTOSIS SLIGHT; PLT ESTIMATE INCREASED (ADEQUATE); SCHISTOCYTES OCC
== END 2019-03-04 20:55 | disposition home or self-care (01) ==
LOC: ER 17:49
DX: G43.011 Migraine without aura, intractable, with status migrainosus (principal); Z88.6 Allergy status to analgesic agent; Z88.5 Allergy status to narcotic agent; Z88.1 Allergy status to other antibiotic agents; Z91.041 Radiographic dye allergy status; Z88.8 Allergy status to other drugs, medicaments and biological substances
CPT/HCPCS: 36415; 80053; 81001; 85025; 96374; 96375; 99285; J1885; J2300; Q0169; 96361; J7030

== ENCOUNTER 2019-04-02 11:17 | Emergency (ER) | payer BC, MEDICARE ==
[~2019-04-02] VITALS: Ht 165.1 cm; Wt 51.0 kg
[2019-04-02 11:27] VITALS: BP 118/85
[2019-04-02] MEDS ORDERED: IV NORMAL SALINE 500ML 500 ML IV ONE (11:45)
[2019-04-02] MEDS ORDERED: PROCHLORPERAZINE 10 MG/2 ML VIAL. IV ONE (11:45)
--- NOTE | 2019-04-02 11:53 | PHYS DOC ---
Past History Past Medical History: Cancer, Diabetes, Hypothyroid, AL, Migraines, Stroke Past Surgical History: Other Additional Past Surgical Histo: laparoscopic Gray fundoplication Smoking: Non-smoker Alcohol Use: None Drug Use: None Adult General Chief Complaint Chief Complaint: HEADACHE HPI HPI Patient is a 53-year-old female presents complaining of a headache like her usual migraine. This particular one has been going on for the past 5 days. It is diffuse in her head but worse on the right side with radiation down into her neck. No significant relief with home medicines which include acetaminophen and oral Phenergan. There has been nausea and dry heaves. There is photosensitivity. This is not worse headache of life. No fever. No neck stiffness. She has not seen her primary care physician for this headache. Symptoms are moderate to severe in intensity.[] Review of Systems Review of Systems Constitutional: Denies fever or chills [] Eyes: Denies change in visual acuity, redness, or eye pain. Photophobia is present [] HENT: Denies nasal congestion or sore throat [] Respiratory: Denies cough or shortness of breath [] Cardiovascular: No chest pain or palpitations[] GI: Denies abdominal pain, nausea, vomiting, bloody stools or diarrhea [] : Denies dysuria or hematuria [] Musculoskeletal: Denies back pain or joint pain [] Integument: Denies rash or skin lesions [] Neurologic: Denies focal weakness or sensory changes, see history of present illness [] Endocrine: Denies polyuria or polydipsia [] All other systems were reviewed and found to be within normal limits, except as documented in this note. Allergies Allergies Allergies Coded Allergies Type Severity Reaction Last Updated Verified acetaminophen Allergy Severe 09/10/16 Yes hydrocodone Allergy Severe 09/10/16 Yes clarithromycin Allergy Intermediate 09/10/16 Yes codeine Allergy Intermediate 09/10/16 Yes guaifenesin Allergy Intermediate 03/28/16 Yes meperidine Allergy Intermediate 09/10/16 Yes metoclopramide Allergy Intermediate 09/10/16 Yes propoxyphene Allergy Intermediate 09/10/16 Yes tramadol Allergy Intermediate 09/10/16 Yes vitamin K2 Allergy Intermediate 09/10/16 Yes I S O L A T I O N *CONTACT* Allergy Unknown 07/30/18 Yes erenumab-aooe Allergy Unknown Itching 12/03/18 Yes sumatriptan Allergy Unknown 09/11/18 Yes rivaroxaban Adverse Reaction Unknown HEMATOMA 07/27/18 Yes Physical Exam Physical Exam Constitutional: Well developed, well nourished, no acute distress, non-toxic appearance. Working on her phone as I entered the room [] HENT: Normocephalic, atraumatic, bilateral external ears normal, oropharynx moist, no oral exudates, nose normal. [] Eyes: PERRLA, EOMI, conjunctiva normal, no discharge. [] Neck: Normal range of motion, no tenderness, supple, no stridor. [] Cardiovascular:Heart rate regular rhythm, no murmur [] Lungs & Thorax: Bilateral breath sounds clear to auscultation [] Abdomen: Not examined[] Skin: Warm, dry, no erythema, no rash. [] Back: No tenderness, no CVA tenderness. [] Extremities: No tenderness, no cyanosis, no clubbing, ROM intact, no edema. [] Neurologic: Alert and oriented X 3, normal motor function, normal sensory function, no focal deficits noted. [] Psychologic: Affect normal, judgement normal, mood normal. [] Current Patient Data Vital Signs Vital Signs Date Time Temp Pulse Resp B/P (MAP) Pulse Ox O2 Delivery O2 Flow Rate FiO2 04/02/19 11:27 97.8 98 18 100 Room Air EKG EKG [] Radiology/Procedures Radiology/Procedures [] Course & Med Decision Making Course & Med Decision Making Pertinent Labs and Imaging studies reviewed. (See chart for details) ED course and medical decision making: Patient arrived, was placed in bed, and tolerated exam well. Following the [facility] guidelines for migraine, attempted to give Phenergan, unfortunately this facility no longer has parenteral Phenergan. She reports allergies to metoclopramide and prochlorperazine. She received ketorolac and diphenhydramine along with IV fluids. She reported minimal improvement with this. She was then given dexamethasone and valproate along with magnesium and again with limited improvement. Ondansetron was then administered. Not willing to give D.H.[facility] due to her history of aberrant cerebral blood flow. After the ondansetron, she reported more than 50% improvement in the discomfort. She was discharged in improved condition with all questions answered. There is no evidence of intractable migraine, no evidence meningitis, encephalitis, nor stroke syndrome. No evidence of mass or bleed.[] Dragon Disclaimer Dragon Disclaimer This electronic medical record was generated, in whole or in part, using a voice recognition dictation system. Departure Departure: Impression: Primary Impression: Migraine headache Disposition: 01 HOME, SELF-CARE Condition: IMPROVED Referrals: CARLOS LING MD (PCP) Follow-up in 2 days Patient Instructions: Recurrent Migraine Headache Additional Instructions: Follow-up with your regular doctor in 2 days. At the onset of your neck migraine headache try taking 1/4 teaspoon of antionette, dissolve this in apple juice or water and drink all of it. Return to the ER if worsening pain, change in vision, unable to tolerate liquids, or any other concerns. Problem Qualifiers Primary Impression: Migraine headache Migraine type: unspecified Status migrainosus presence: without status migrainosus Intractability: not intractable Qualified Codes: G43.909 - Migraine, unspecified, not intractable, without status migrainosus LIBAN GOODMAN DO Apr 02, 2019 11:53
[2019-04-02] MEDS ORDERED: KETOROLAC 30 MG/ML VIAL. IV ONE (12:00)
[2019-04-02] MEDS ORDERED: DEXAMETHASONE SOD PHOS 4 MG/ML VIAL IV ONE (12:30)
[2019-04-02] MEDS ORDERED: MAGNESIUM SULFATE 1GM 100 ML IV ONE (12:30)
[2019-04-02] MEDS ORDERED: VALPROATE SODIUM 500 MG in IV NORMAL SALINE 50ML 50 ML IV ONE (12:30)
[2019-04-02] MEDS ORDERED: diphenhydrAMINE 50 MG/ML VIAL IVP ONE (12:30)
[2019-04-02] MEDS ORDERED: ONDANSETRON PF 4 MG/2 ML VIAL. IV ONE (13:45)
== END 2019-04-02 14:27 | disposition home or self-care (01) ==
LOC: ER 11:17
DX: G43.909 Migraine, unspecified, not intractable, without status migrainosus (principal); E11.9 Type 2 diabetes mellitus without complications; E03.9 Hypothyroidism, unspecified; I25.2 Old myocardial infarction; Z86.73 Personal history of transient ischemic attack (TIA), and cerebral infarction without residual deficits; Z88.6 Allergy status to analgesic agent; Z88.5 Allergy status to narcotic agent; Z88.1 Allergy status to other antibiotic agents; Z88.8 Allergy status to other drugs, medicaments and biological substances; Z91.041 Radiographic dye allergy status
CPT/HCPCS: 96365; 96368; 96375; 99284; J1100; J1200; J1885; J2405; J3475; J3490; J7040

== ENCOUNTER 2019-09-16 16:23 | Emergency (ER) | payer BC, MEDICARE ==
[~2019-09-16] VITALS: Ht 165.1 cm; Wt 57.2 kg
[2019-09-16] MEDS ORDERED: IOHEXOL 240 MG/ML 50ML VIAL. ONE (16:58)
[2019-09-16] MEDS ORDERED: FAMOTIDINE 20 MG/2 ML VIAL IVP ONE (17:00)
[2019-09-16] MEDS ORDERED: IV NORMAL SALINE 1,000ML 1,000 ML IV ONE (17:00)
[2019-09-16] MEDS ORDERED: ONDANSETRON PF 4 MG/2 ML VIAL. IVP ONE (17:00)
--- NOTE | 2019-09-16 17:02 | PHYS DOC ---
Past History Past Medical History: Cancer, Diabetes, DVT, Hypothyroid, [place], Migraines, Stroke (ANNELISE DUMONT DO) Past Medical History: Anemia, GERD, IBS, P.U.D (ALENA MUNSON MD) Past Surgical History: Appendectomy, Cholecystectomy, Hysterectomy, Other Additional Past Surgical Histo: laparoscopic Gray fundoplication, partial gastrectomy, MV replacement (ANNELISE DUMONT DO) Smoking: Non-smoker Alcohol Use: None Drug Use: None (ANNELISE DUMONT DO) Adult General Chief Complaint Chief Complaint: ABDOMINAL PAIN HPI HPI Patient is a 54-year-old female who presents with abdominal pain that began about 2 months ago and has progressively worsened for the last 2-3 weeks. She describes pain as "like someone is twisting my insides" and currently rates it as a 8 out of 10. She says the pain is constant, but the severity waxes and wanes. She also says that her abdomen feels distended and she constantly feels nauseous, but has not vomited. 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 She also reports that she has had some facial swelling that started about a month ago. She also notes some numbness and tingling of the face and one episode of numbness and tingling of the left arm that occurred last Thursday. She has a history of multiple abdominal surgeries complicated by adhesions and has had surgery for lysis of her adhesions in the past. She is also complaining of a migraine that she has had since last Thursday. She has associated blurry vision and sensitivity to light. Nubain or butorphanol is what she is normally given for her migraines. Denies trauma. (ANNELISE DUMONT DO) Review of Systems Review of Systems Constitutional: Denies fever or chills Eyes: Reports blurry vision and sensitivity to light, Denies redness or eye pain HENT: Denies nasal congestion or sore throat Respiratory: Denies cough or shortness of breath Cardiovascular: Denies chest pain or palpitations GI: Reports diffuse abdominal pain and nausea, Denies vomiting and diarrhea : Denies dysuria or hematuria Musculoskeletal: Denies back pain or joint pain Integument: Denies rash or skin lesions Neurologic: Reports headache and numbness of left side of face, Denies focal weakness Complete systems were reviewed and found to be within normal limits, except as documented in this note. (ANNELISE DUMONT DO) Current Medications Current Medications Current Medications Medications (Trade) Dose Ordered Sig/Luis Eduardo Start Time Stop Time Status Last Admin Dose Admin Famotidine (Pepcid Vial) 20 mg 1X ONCE 09/16/19 17:00 09/16/19 17:01 UNV Ondansetron HCl (Zofran) 4 mg 1X ONCE 09/16/19 17:00 09/16/19 17:01 UNV Sodium Chloride 1,000 ml @ 1,000 mls/hr 1X ONCE 09/16/19 17:00 09/16/19 17:59 UNV (ANNELISE DUMONT DO) Allergies Allergies Allergies Coded Allergies Type Severity Reaction Last Updated Verified acetaminophen Allergy Severe 09/16/19 Yes hydrocodone Allergy Severe 09/16/19 Yes clarithromycin Allergy Intermediate 09/16/19 Yes codeine Allergy Intermediate 09/16/19 Yes guaifenesin Allergy Intermediate 09/16/19 Yes meperidine Allergy Intermediate 09/16/19 Yes metoclopramide Allergy Intermediate 09/16/19 Yes propoxyphene Allergy Intermediate 09/16/19 Yes tramadol Allergy Intermediate 09/16/19 Yes vitamin K2 Allergy Intermediate 09/16/19 Yes I S O L A T I O N *CONTACT* Allergy Unknown 09/16/19 Yes erenumab-aooe Allergy Unknown Itching 09/16/19 Yes sumatriptan Allergy Unknown 09/16/19 Yes rivaroxaban Adverse Reaction Unknown HEMATOMA 09/16/19 Yes (ANNELISE DUMONT DO) Physical Exam Physical Exam Constitutional: Well developed, well nourished, no acute distress, non-toxic appearance HENT: Normocephalic, atraumatic, oropharynx moist Eyes: EOMI, conjunctiva normal, no discharge Neck: Normal range of motion, supple, no JVD, no carotid bruits Cardiovascular: Heart rate normal, regular rhythm Lungs & Thorax: Bilateral breath sounds clear to auscultation, no wheezing Abdomen: Soft, Tenderness to palpation of abdomen most severe on the right side Skin: Warm, dry, no erythema, no rash Back: No tenderness, no CVA tenderness Extremities: No tenderness, ROM intact, no edema Neurologic: Alert and oriented X 3, normal motor function, normal sensory function, no focal deficits noted Psychologic: Affect normal, judgment normal (ANNELISE DUMONT DO) Current Patient Data Vital Signs Vital Signs Date Time Temp Pulse Resp B/P (MAP) Pulse Ox O2 Delivery O2 Flow Rate FiO2 09/16/19 16:42 97.9 79 16 157/89 (111) 100 Room Air (ANNELISE DUMONT DO) EKG EKG @1713 EKG performed and showed sinus rhythm with heart rate of 65 bpm and no acute ST segment changes. (ANNELISE DUMONT DO) Radiology/Procedures Radiology/Procedures [] (ANNELISE DUMONT DO) Radiology/Procedures [address] [address] IMAGING REPORT Signed PATIENT: GWENDOLYN CAVAZOS: [id number] : 1965 LOCATION: ER AGE: 54 SEX: F EXAM STATUS: REG ER ORD. PHYSICIAN: ANNELISE DUMONT DO REASON: pain, Supratheraputic INR PROCEDURE: CT HEAD WO CONTRAST CT brain without contrast. HISTORY: Pain, supratherapeutic INR, nausea and vomiting, headache CT scan of brain was done without contrast. Sinuses are clear. There is no intracranial hemorrhage or subdural hematoma. 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 Ventricles are normal in size. IMPRESSION: 1. No intracranial hemorrhage or acute finding noted. PQRS Compliance Statement: One or more of the following individualized dose reduction techniques were utilized for this examination: 1. Automated exposure control 2. Adjustment of the mA and/or kV according to patient size 3. Use of iterative reconstruction technique Electronically signed by: Jevon Lombardo MD (09/16/2019 6:37 PM) [id number] DICTATED AND SIGNED BY: JEVON LOMBARDO MD DATE: 09/16/191836 CC: CARLOS LING MD; ANNELISE DUMONT DO ~ [address] [address] IMAGING REPORT Signed PATIENT: GWENDOLYN CAVAZOS: [id number] : 1965 LOCATION: ER AGE: 54 SEX: F EXAM STATUS: REG ER ORD. PHYSICIAN: ANNELISE DUMONT DO REASON: abdominal pain [id number] PROCEDURE: CT ABD PELV W/ORAL&IV CONTRAST CT abdomen pelvis with contrast. HISTORY: Abdominal pain, nausea and vomiting, supratherapeutic INR CT scan the abdomen and pelvis was done using 75 mL Omnipaque 300 contrast. There is a small focal infiltrate or groundglass nodule in the right lower lobe follow-up study in 6 months would be of benefit. The density measures 2 cm on image #7 liver is normal in appearance. The patient's had a cholecystectomy. Common duct is mildly prominent which is nonspecific. Spleen and adrenal glands are normal. A pancreatic lesion is not identified. There is no mass or hydronephrosis in the kidneys. There are small incidental renal cysts. Patient's had previous gastric surgery. There is no small bowel obstruction. Patient's had a hysterectomy. There is no bowel obstruction. There is no abnormal intra-abdominal fluid collection or hematoma. There is moderate stool in the transverse colon. There is inflammation in the subcutaneous fat in the buttocks regions possibly from injections. IMPRESSION: 1. Groundglass nodule or infiltrate right lower lobe follow-up would be of benefit. 2. Mildly prominent common duct but previous cholecystectomy. 3. No abdominal or pelvic mass or abnormal fluid collection. PQRS Compliance Statement: One or more of the following individualized dose reduction techniques were utilized for this examination: 1. Automated exposure control 2. Adjustment of the mA and/or kV according to patient size 3. Use of iterative reconstruction technique Electronically signed by: Jevon Lombardo MD (09/16/2019 6:44 PM) [id number] DICTATED AND SIGNED BY: JEVON LOMBARDO MD DATE: 09/16/19 1844 CC: CARLOS LING MD; ALENA MUNSON MD; ANNELISE DUMONT DO ~ (ALENA MUNSON MD) Course & Med Decision Making Course & Med Decision Making Pertinent Labs and Imaging studies reviewed. (See chart for details) Patient is a 54-year-old female who presents with chronic abdominal pain and distention that began about 2 months ago and a migraine that began last Thursday. EKG performed and showed sinus rhythm with heart rate of 65 bpm and no acute ST segment changes. Labs obtained and posted to chart. Acute on chronic anemia noted. INR > 4. CT of the abdomen/pelvis and CT head ordered and results pending. Symptomatic treatment provided. Sign out given to Dr. Munson for further evaluation and final disposition. Discussed current findings and plan with patient , who acknowledges understanding and agreement. (ANNELISE DUMONT DO) Course & Med Decision Making Pt. declines admission at this time 1930 hrs. Will go home on clear fluid diet. Will follow up her Elev. INR 4.1, ( holding tonight dosage). Will follow up Hgb 7.4 and low iron levels. Return if any concerns. Risk and Benefits of her discharge discussed. Pt. exhibits UCAR capacity. Will do early follow up with Dr. Ling. or will return if any concerns. Especially any findings of GI bleed. Impression: 1. Abdomen pain-no obvious surgical pathology tonight 2. Constipation 3.History of adhesions and small bowel ileus 4. Anemia hemoglobin 7.4 with microcytic hypochromic indices 5. Elevated CK 220 (ALENA MUNSON MD) Dragon Disclaimer Dragon Disclaimer This electronic medical record was generated, in whole or in part, using a voice recognition dictation system. (ANNELISE DUMONT DO) Departure Departure: Impression: Primary Impression: Abdominal pain Additional Impressions: Headache Elevated INR Anemia Disposition: 01 HOME/RESIDENCE PRIOR TO ADM Condition: STABLE Referrals: CARLOS LING MD (PCP) Dragon Disclaimer This chart was dictated in whole or in part using Voice Recognition software in a busy, high-work load, and often noisy Emergency Department environment. It may contain unintended and wholly unrecognized errors or omissions. (ALENA MUNSON MD) Dragon Disclaimer This chart was dictated in whole or in part using Voice Recognition software in a busy, high-work load, and often noisy Emergency Department environment. It may contain unintended and wholly unrecognized errors or omissions. (ALENA MUNSON MD) Problem Qualifiers Primary Impression: Abdominal pain Abdominal location: unspecified location Qualified Codes: R10.9 - Unspecified abdominal pain Additional Impressions: Headache Headache type: unspecified Headache chronicity pattern: acute headache Intractability: intractable Qualified Codes: R51 - Headache Anemia Anemia type: unspecified type Qualified Codes: D64.9 - Anemia, unspecified ANNELISE DUMONT DO Sep 16, 2019 17:02 ALENA MUNSON MD Sep 16, 2019 18:47
[2019-09-16] MEDS ORDERED: KETOROLAC 15 MG/ML VIAL. IVP ONE (17:15)
--- NOTE | 2019-09-16 17:18 | EKG ---
[address] [address] Test Date: 2019-09-16 Test Time: 17:13:36 Pat Name: GWENDOLYN CAVAZOS Department: Room: Gender: F [employer]: : 1965 Requested By: ANNELISE DUMONT Order Number: [id number] Reading MD: Measurements Intervals [place] Rate: 65 P: 52 VA: 140 QRS: 4 QRSD: 76 T: 35 QT: 396 QTc: 413 Interpretive Statements SINUS RHYTHM INCOMPLETE RIGHT BUNDLE BRANCH BLOCK OTHERWISE NORMAL ECG RI6.01 No previous ECG available for comparison
[2019-09-16 17:28] LABS: CALCIUM 8.6 mg/dL (8.5-10.1); CREATININE 0.6 mg/dL (0.6-1.0); POTASSIUM 4.1 mmol/L (3.5-5.1)
[2019-09-16 17:42] LABS: ALBUMIN 3.8 g/dL (3.4-5.0); MAGNESIUM 2.2 mg/dL (1.8-2.4); TOTAL BILIRUBIN 0.2 mg/dL (0.2-1.0); TOTAL PROTEIN 7.5 g/dL (6.4-8.2)
[2019-09-16] MEDS ORDERED: IOHEXOL 300 MG/ML 75 ML VIAL. IV ONE (17:45)
[2019-09-16 17:53] LABS: BASO # 0.1 x10^3/uL (0.0-0.2); BASO % 2 % (0-3); EOS # 0.1 x10^3/uL (0.0-0.7); EOS % 1 % (0-3); HEMATOCRIT 25.2 % (36.0-47.0); HEMOGLOBIN 7.4 g/dL (12.0-15.5); LYMPH # 2.2 x10^3/uL (1.0-4.8); LYMPH % 31 % (24-48); MEAN CORPUSCULAR HEMOGLOBIN 18 pg (25-35); MEAN CORPUSCULAR HGB CONC 29 g/dL (31-37); MEAN CORPUSCULAR VOLUME 61 fL (79-100); MONO # 0.6 x10^3/uL (0.0-1.1); MONO % 8 % (0-9); NEUT # 3.9 x10^3uL (1.8-7.7); NEUT % 57 % (31-73); PLATELET COUNT 385 x10^3/uL (140-400); RED BLOOD COUNT 4.17 x10^6/uL (3.50-5.40); RED CELL DISTRIBUTION WIDTH 19.1 % (11.5-14.5); WHITE BLOOD COUNT 6.9 x10^3/uL (4.0-11.0)
[2019-09-16 17:54] LABS: PLT ESTIMATE ADEQUATE (ADEQUATE)
[2019-09-16 17:55] LABS: ANISOCYTOSIS SLIGHT; HYPOCHROMIA MARKED; MICROCYTOSIS MARKED; POIKILOCYTOSIS SLIGHT
[2019-09-16 17:56] LABS: POLYCHROMASIA SLIGHT
[2019-09-16] MEDS ORDERED: DEXAMETHASONE SOD PHOS 10 MG/ML VIAL IV ONE (18:00)
[2019-09-16 18:06] LABS: CLARITY,URINE CLEAR; COLOR,URINE YELLOW; GLUCOSE,URINE NEG (NEG)
[2019-09-16 18:07] LABS: AMORPHOUS SEDIMENT,UR PRESENT /HPF; BACTERIA,URINE 0 /HPF (0-FEW); BILIRUBIN,URINE NEG (NEG); NITRITE,URINE NEG (NEG); RBC,URINE OCC /HPF (0-2); SQUAMOUS EPITHELIAL CELL,UR OCC /LPF; WBC,URINE OCC /HPF (0-4)
--- NOTE | 2019-09-16 18:39 | RAD ---
CT brain without contrast. HISTORY: Pain, supratherapeutic INR, nausea and vomiting, headache CT scan of brain was done without contrast. Sinuses are clear. There is no intracranial hemorrhage or subdural hematoma. 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 Ventricles are normal in size. IMPRESSION: 1. No intracranial hemorrhage or acute finding noted. RS Compliance Statement: One or more of the following individualized dose reduction techniques were utilized for this examination: 1. Automated exposure control 2. Adjustment of the mA and/or kV according to patient size 3. Use of iterative reconstruction technique Electronically signed by: Jevon Lombardo MD (09/16/2019 6:37 PM) [id number]
--- NOTE | 2019-09-16 18:47 | RAD ---
CT abdomen pelvis with contrast. HISTORY: Abdominal pain, nausea and vomiting, supratherapeutic INR CT scan the abdomen and pelvis was done using 75 mL Omnipaque 300 contrast. There is a small focal infiltrate or groundglass nodule in the right lower lobe follow-up study in 6 months would be of benefit. The density measures 2 cm on image #7 liver is normal in appearance. The patient's had a cholecystectomy. Common duct is mildly prominent which is nonspecific. Spleen and adrenal glands are normal. A pancreatic lesion is not identified. There is no mass or hydronephrosis in the kidneys. There are small incidental renal cysts. Patient's had previous gastric surgery. There is no small bowel obstruction. Patient's had a hysterectomy. There is no bowel obstruction. There is no abnormal intra-abdominal fluid collection or hematoma. There is moderate stool in the transverse colon. There is inflammation in the subcutaneous fat in the buttocks regions possibly from injections. IMPRESSION: 1. Groundglass nodule or infiltrate right lower lobe follow-up would be of benefit. 2. Mildly prominent common duct but previous cholecystectomy. 3. No abdominal or pelvic mass or abnormal fluid collection. PQRS Compliance Statement: One or more of the following individualized dose reduction techniques were utilized for this examination: 1. Automated exposure control 2. Adjustment of the mA and/or kV according to patient size 3. Use of iterative reconstruction technique Electronically signed by: Jevon Lombardo MD (09/16/2019 6:44 PM) [id number]
[2019-09-16] MEDS ORDERED: MAGNESIUM HYDROXIDE 2,400 MG/30 ML ORAL.SUSP. PO ONE (19:30)
[2019-09-16 19:44] VITALS: BP 145/80
== END 2019-09-16 20:04 | disposition home or self-care (01) ==
LOC: ER 16:23
DX: K59.00 Constipation, unspecified (principal); D64.9 Anemia, unspecified; D50.9 Iron deficiency anemia, unspecified; R79.89 Other specified abnormal findings of blood chemistry; R79.1 Abnormal coagulation profile; E11.9 Type 2 diabetes mellitus without complications; E03.9 Hypothyroidism, unspecified; I25.2 Old myocardial infarction; G43.909 Migraine, unspecified, not intractable, without status migrainosus; K21.9 Gastro-esophageal reflux disease without esophagitis; K58.9 Irritable bowel syndrome, unspecified; Z86.718 Personal history of other venous thrombosis and embolism; Z86.73 Personal history of transient ischemic attack (TIA), and cerebral infarction without residual deficits; Z86.2 Personal history of diseases of the blood and blood-forming organs and certain disorders involving the immune mechanism; Z90.49 Acquired absence of other specified parts of digestive tract; Z90.89 Acquired absence of other organs; Z90.710 Acquired absence of both cervix and uterus; Z88.5 Allergy status to narcotic agent; Z88.6 Allergy status to analgesic agent; Z88.1 Allergy status to other antibiotic agents; Z91.041 Radiographic dye allergy status
CPT/HCPCS: 36415; 70450; 74177; 80053; 81001; 82553; 83605; 83690; 83735; 84484; 85025; 85610; 85730; 93005; 96374; 96375; 99285; J1100; J1885; J2405; J3490; Q9967; J7030

== ENCOUNTER → 2019-10-05 | Outpatient (CLI) | payer BC, MEDICARE ==
[2019-10-05] MEDS: ACETAMINOPHEN 500 MG TABLET PO ONE (15:00)
[2019-10-05 15:10] LABS: HEMATOCRIT 24.8 % (36.0-47.0); HEMOGLOBIN 7.4 g/dL (12.0-15.5); RED BLOOD COUNT 4.14 x10^6/uL (3.50-5.40); RED CELL DISTRIBUTION WIDTH 19.2 % (11.5-14.5); WHITE BLOOD COUNT 6.4 x10^3/uL (4.0-11.0)
[2019-10-05] MEDS: ACETAMINOPHEN 325 MG TABLET PO ONE (15:45)
[2019-10-05] MEDS: diphenhydrAMINE 50 MG/ML VIAL IVP ONE (15:45)
[2019-10-05 17:17] VITALS: BP 136/74
[2019-10-05 17:47] VITALS: BP 128/77
[2019-10-05 18:47] VITALS: BP 139/67
[2019-10-05 19:50] VITALS: BP 126/65
[2019-10-05 20:35] VITALS: BP 115/71
== END | disposition home or self-care (01) ==
LOC: OPINF 14:38
PROVIDERS: ATTEND Family Medicine
DX: D64.9 Anemia, unspecified (principal); K21.9 Gastro-esophageal reflux disease without esophagitis; E03.9 Hypothyroidism, unspecified; G43.909 Migraine, unspecified, not intractable, without status migrainosus; I25.2 Old myocardial infarction; E11.9 Type 2 diabetes mellitus without complications; Z86.718 Personal history of other venous thrombosis and embolism; Z90.710 Acquired absence of both cervix and uterus; Z90.89 Acquired absence of other organs; Z90.49 Acquired absence of other specified parts of digestive tract; Z86.73 Personal history of transient ischemic attack (TIA), and cerebral infarction without residual deficits
CPT/HCPCS: 36415; 36430; 36591; 85027; 86850; 86900; 86901; 86920; 96374; 96523; J1200; P9016

== ENCOUNTER → 2019-12-02 | Outpatient (CLI) | payer BC, MEDICARE ==
[2019-10-05 20:35] VITALS: BP 115/71
--- NOTE | 2019-12-02 12:16 | RAD ---
THYROID ULTRASOUND History: Multinodular goiter. Comparison: Thyroid ultrasound 11/05/2018. Technique: Multiple grayscale and color Doppler images of the thyroid gland were obtained. Findings: Measurements in length, AP (height), and transverse (width), respectively, unless otherwise stated. Right thyroid lobe measures 3.6 x 1.4 x 1.3 cm. There is a TR3 nodule of the inferior right thyroid lobe measuring up to 4 mm. The left thyroid lobe measures 3.2 x 0.9 x 1.3 cm. No thyroid nodule is identified. Color Doppler demonstrates increased blood flow in the thyroid gland. The isthmus measures 3 mm and is homogeneous. ACR Thyroid Imaging, Reporting And Data System (TI-RADS): White Paper Of The ACR TI-RADS Committee. Journal of the [employer], volume 14, issue 5, pages 587-595 (November 2016). IMPRESSION: 1. No suspicious thyroid nodule. 2. The thyroid gland is hypervascular. Electronically signed by: Angel Neves MD (12/02/2019 12:13 PM) [id number]
== END | disposition home or self-care (01) ==
LOC: US 10:33
PROVIDERS: ATTEND Family Medicine
DX: E61.1 Iron deficiency (principal)
CPT/HCPCS: 76536

== ENCOUNTER → 2019-12-22 | Outpatient (CLI) | payer BC, MEDICARE ==
[2019-10-05 20:35] VITALS: BP 115/71
[~2019-12-22] MED LIST changes: +WARF1TAB2 PO; -WARF1TAB74 PO
--- NOTE | 2019-12-22 14:15 | RAD ---
Limited left breast ultrasound. INDICATION: Left breast trauma. Assess for hematoma. COMPARISON: None available. TECHNIQUE: Grayscale ultrasound imaging of the left breast in the area of clinical concern was performed representing the 12:00 superior left breast in the area of her left chest port. FINDINGS: There is mild heterogeneity to the echotexture of the subcutaneous fat in the area of clinical concern. No fluid collection is apparent. No evidence of active bleeding on color Doppler imaging. IMPRESSION: Benign posttraumatic changes in the area of clinical concern in the superior left breast. It is unknown at this point whether the patient is up-to-date with her mammograms. Since mammographic correlation is not strictly required in evaluation of this area of clinical concern, BI-RADS assessment is benign, with instructions to the patient to follow up with her referring provider to ensure she is up-to-date with screening mammography. BI-RADS 2 Benign Recommend return to routine screening. Management of any clinical concern should be clinical with biopsy of any clinically suspicious findings if present, even in the absence of an imaging correlate. Electronically signed by: Kelli Celis MD (12/22/2019 2:13 PM) [id number]
== END | disposition home or self-care (01) ==
LOC: US 13:38
PROVIDERS: ATTEND Nurse Practitioner Adult Health
DX: S20.02XA Contusion of left breast, initial encounter (principal); X58.XXXA Exposure to other specified factors, initial encounter; Y93.89 Activity, other specified; Y92.89 Other specified places as the place of occurrence of the external cause; Y99.8 Other external cause status
CPT/HCPCS: 76641

== ENCOUNTER → 2020-01-10 | Outpatient (CLI) | payer BC, MEDICARE ==
[2019-10-05 20:35] VITALS: BP 115/71
--- NOTE | 2020-01-11 12:43 | RAD ---
DATE: 01/10/2020 11:19 AM EXAM: MAMMO GO SCREENING BILATERAL HISTORY: Screening. COMPARISON: None available. This will serve as a new baseline. By report, patient's previous films are over 10 years old Bilateral CC and MLO views of the breasts were performed. Bilateral breast tomosynthesis was performed in CC and MLO projections. This study was interpreted with the benefit of Computerized Aided Detection (CAD). FINDINGS: Breast Density: FATTY The Breast Parenchyma is primarily fatty replaced. Breast parenchyma level density A. No suspicious masses, microcalcifications or architectural distortion is present to suggest malignancy in either breast. The visualized axillae are unremarkable. IMPRESSION: No mammographic evidence of malignancy. BI-RADS CATEGORY: 1 NEGATIVE RECOMMENDED FOLLOW-UP: 12M 12 MONTH FOLLOW-UP Annual screening mammography is recommended, unless clinically indicated sooner based on symptoms or change in physical exam. PQRS compliance statement: Patient information was entered into a reminder system with a target due date 01/10/2021 for the next mammogram. Mammography is a sensitive method for finding small breast cancers, but it does not detect them all and is not a substitute for careful clinical examination. A negative mammogram does not negate a clinically suspicious finding and should not result in delay in biopsying a clinically suspicious abnormality. "Our facility is accredited by the [employer] Mammography Program."
== END | disposition home or self-care (01) ==
LOC: MAMMO 10:22
PROVIDERS: ATTEND Family Medicine
DX: Z12.31 Encounter for screening mammogram for malignant neoplasm of breast (principal)
CPT/HCPCS: 77063; 77067

== ENCOUNTER 2020-03-09 12:28 | Emergency (ER) | payer BC, MEDICARE ==
[~2020-03-09] VITALS: Ht 165.1 cm; Wt 57.2 kg
[2020-03-09] MEDS ORDERED: MORPHINE SULFATE 2 MG/ML DISP.SYRIN. IV ONE (12:45)
[2020-03-09] MEDS ORDERED: IV NORMAL SALINE 1,000ML 1,000 ML IV ONE (12:45)
[2020-03-09] MEDS ORDERED: ONDANSETRON PF 4 MG/2 ML VIAL. IVP ONE (12:45)
[2020-03-09] MEDS ORDERED: MORPHINE SULFATE 4 MG/ML DISP.SYRIN. ONE (12:47)
--- NOTE | 2020-03-09 12:53 | PHYS DOC ---
Past History Past Medical History: Anemia, GERD, IBS, P.U.D Past Surgical History: Appendectomy, Cholecystectomy, Hysterectomy, Other Additional Past Surgical Histo: laparoscopic Gray fundoplication, partial gastrectomy, MV replacement Smoking: Non-smoker Alcohol Use: None Drug Use: None General Adult EDM: Chief Complaint: BACK PAIN OR INJURY HPI: HPI: 54-year-old female presents with low back pain. The patient was up in the hospital getting an iron infusion. Toward the end of the infusional she had some mild low back pain. As she walked out to her car the pain increased significantly. She was able to sit down in her car, but the severe pain kept her from feeling like she could drive. She also could not get back out of the car. A nurse came out and talk to her and took her back inside the hospital. She then was brought here by EMS. Denies fall or trauma. Patient tells me she has had adverse reactions to lots of medications in the past. She rates the back pain as 10 out of 10. She says is worse than the migraines that she gets. She is allergic to most pain medications, but can have low-dose morphine if it is diluted. She denies back pain prior to the infusion today. No history of kidney stones. She has had UTIs in the past. She denies fever chills. She has no other complaints at this time. Review of Systems: Review of Systems: Constitutional: Denies fever or chills Eyes: Denies change in visual acuity HENT: Denies nasal congestion or sore throat Respiratory: Denies cough or shortness of breath Cardiovascular: Denies chest pain or edema GI: Denies abdominal pain, nausea, vomiting, bloody stools or diarrhea : Denies dysuria Musculoskeletal: Low back pain Integument: Denies rash Neurologic: Denies headache, focal weakness or sensory changes Endocrine: Denies polyuria or polydipsia Lymphatic: Denies swollen glands Psychiatric: Denies depression or anxiety Heart Score: Risk Factors: Risk Factors: DM, Current or recent (<one month) smoker, HTN, HLP, family history of CAD, obesity. Risk Scores: Score 0 - 3: 2.5% MACE over next 6 weeks - Discharge Home Score 4 - 6: 20.3% MACE over next 6 weeks - Admit for Clinical Observation Score 7 - 10: 72.7% MACE over next 6 weeks - Early Invasive Strategies Current Medications: Current Meds: Current Medications Medications (Trade) Dose Ordered Sig/Luis Eduardo Start Time Stop Time Status Last Admin Dose Admin Morphine Sulfate (Morphine 2mg Syringe) 2 mg 1X ONCE 03/09/20 12:45 03/09/20 12:46 UNV Morphine Sulfate (Morphine 4mg Syringe) 4 mg STK-MED ONCE 03/09/20 12:47 03/09/20 12:47 DC Ondansetron HCl (Zofran) 4 mg 1X ONCE 03/09/20 12:45 03/09/20 12:46 DC Sodium Chloride 1,000 ml @ 1,000 mls/hr 1X ONCE 03/09/20 12:45 03/09/20 13:44 Allergies: Allergies: Allergies Coded Allergies Type Severity Reaction Last Updated Verified hydrocodone Allergy Severe 09/16/19 Yes clarithromycin Allergy Intermediate 09/16/19 Yes codeine Allergy Intermediate 09/16/19 Yes guaifenesin Allergy Intermediate 09/16/19 Yes meperidine Allergy Intermediate 09/16/19 Yes metoclopramide Allergy Intermediate 09/16/19 Yes propoxyphene Allergy Intermediate 09/16/19 Yes tramadol Allergy Intermediate 09/16/19 Yes vitamin K2 Allergy Intermediate 09/16/19 Yes I S O L A T I O N *CONTACT* Allergy Unknown 09/16/19 Yes erenumab-aooe Allergy Unknown Itching 09/16/19 Yes sumatriptan Allergy Unknown 09/16/19 Yes rivaroxaban Adverse Reaction Unknown HEMATOMA 09/16/19 Yes Physical Exam: PE: Constitutional: Well developed, well nourished, mild acute distress, in pain, non-toxic appearance. [] HENT: Normocephalic, atraumatic, bilateral external ears normal, oropharynx moist, no oral exudates, nose normal. [] Eyes: PERRLA, EOMI, conjunctiva normal, no discharge. [] Neck: Normal range of motion, no tenderness, supple, no stridor. [] Cardiovascular: Heart rate regular rhythm, no murmur [] Lungs & Thorax: Bilateral breath sounds clear to auscultation [] Abdomen: Bowel sounds normal, soft, no tenderness, no masses, no pulsatile masses. [] Skin: Warm, dry, no erythema, no rash. [] Back: No tenderness to palpation, no significant muscle spasm, no CVA tenderness. [] Extremities: No tenderness, no cyanosis, no clubbing, ROM intact, no edema. [] Neurologic: Alert and oriented X 3, normal motor function, normal sensory function, no focal deficits noted. [] Psychologic: Affect normal, judgement normal, mood normal. [] EKG: EKG: [] Radiology/Procedures: Radiology/Procedures: [] Course & Med Decision Making: Course & Med Decision Making Pertinent Labs and Imaging studies reviewed. (See chart for details) Urinalysis is unremarkable. The patient's labs are significant for anemia. Her hemoglobin is 8.1. This is improved from her to most recent hemoglobin in the chart of 7.4. For her pain, I gave the patient 4 mg of Zofran and 1 mg of morphine. She received a liter of normal saline. This has improved her pain. Given the timing of the infusion and lack of another obvious cause, this appears to be a reaction to that infusion. I recommend that the patient discuss whether not she should continue to get infusions of this type. She will go over this with her physician. She is stable for discharge at this time. [] Dragon Disclaimer: Dragon Disclaimer: This electronic medical record was generated, in whole or in part, using a voice recognition dictation system. Departure Departure: Impression: Primary Impression: Iron adverse reaction Qualified Codes: T45.4X5A - Adverse effect of iron and its compounds, initial encounter Additional Impression: Low back pain Qualified Codes: M54.5 - Low back pain Disposition: 01 HOME/RESIDENCE PRIOR TO ADM Condition: STABLE Referrals: CARLOS LING MD (PCP) Patient Instructions: Post-Injection Inflammatory Reaction Justification of Admission: Justification of Admission: Justification of Admission Dx: N/A AUSTIN JACKSON DO Mar 09, 2020 12:53
[2020-03-09 13:01] VITALS: BP 133/57
[2020-03-09 13:04] LABS: BASO % 1 % (0-3); EOS # 0.1 x10^3/uL (0.0-0.7); EOS % 1 % (0-3); HEMATOCRIT 26.9 % (36.0-47.0); HEMOGLOBIN 8.1 g/dL (12.0-15.5); LYMPH # 0.8 x10^3/uL (1.0-4.8); LYMPH % 16 % (24-48); MEAN CORPUSCULAR HEMOGLOBIN 19 pg (25-35); MEAN CORPUSCULAR HGB CONC 30 g/dL (31-37); MEAN CORPUSCULAR VOLUME 64 fL (79-100); MONO % 1 % (0-9); NEUT # 4.3 x10^3uL (1.8-7.7); NEUT % 81 % (31-73); PLATELET COUNT 286 x10^3/uL (140-400); RED CELL DISTRIBUTION WIDTH 19.4 % (11.5-14.5); WHITE BLOOD COUNT 5.2 x10^3/uL (4.0-11.0)
[2020-03-09 13:09] LABS: CALCIUM 8.8 mg/dL (8.5-10.1); GFR 58.2; POTASSIUM 3.6 mmol/L (3.5-5.1)
[2020-03-09 13:15] LABS: ALBUMIN 3.7 g/dL (3.4-5.0); TOTAL BILIRUBIN 0.3 mg/dL (0.2-1.0); TOTAL PROTEIN 7.4 g/dL (6.4-8.2)
[2020-03-09 13:40] LABS: ANISOCYTOSIS SLIGHT; HYPOCHROMIA MOD; MICROCYTOSIS MOD; PLT ESTIMATE ADEQUATE (ADEQUATE)
[2020-03-09 14:10] LABS: BILIRUBIN,URINE NEG (NEG); CLARITY,URINE CLEAR; COLOR,URINE STRAW; GLUCOSE,URINE NEG (NEG)
[2020-03-09 14:11] LABS: BACTERIA,URINE 0 /HPF (0-FEW); NITRITE,URINE NEG (NEG); UROBILINOGEN,URINE 0.2 mg/dL (0.2 mg/dL)
== END 2020-03-09 14:24 | disposition home or self-care (01) ==
LOC: ER 12:28
DX: M54.5 Low back pain (principal); T45.4X5A Adverse effect of iron and its compounds, initial encounter; K21.9 Gastro-esophageal reflux disease without esophagitis; K58.9 Irritable bowel syndrome, unspecified; Z86.2 Personal history of diseases of the blood and blood-forming organs and certain disorders involving the immune mechanism; Z87.11 Personal history of peptic ulcer disease; Z90.49 Acquired absence of other specified parts of digestive tract; Z90.89 Acquired absence of other organs; Z90.710 Acquired absence of both cervix and uterus; Z88.5 Allergy status to narcotic agent; Z88.1 Allergy status to other antibiotic agents; Z88.6 Allergy status to analgesic agent; Z88.8 Allergy status to other drugs, medicaments and biological substances; Y92.89 Other specified places as the place of occurrence of the external cause
CPT/HCPCS: 36415; 80053; 81001; 85025; 96361; 96374; 96375; 99284; J2270; J2405; J7030

== ENCOUNTER 2020-03-28 18:05 | Inpatient (IN) | payer BC, MEDICARE ==
[~2020-03-28] VITALS: Ht 165.1 cm; Wt 58.0 kg
--- NOTE | 2020-03-28 18:10 | PHYS DOC ---
Past History Past Medical History: Anemia, Anxiety, Arthritis, Bronchitis, GERD, IBS, P.U.D Past Surgical History: Appendectomy, Cholecystectomy, Hysterectomy, Other Additional Past Surgical Histo: laparoscopic Gray fundoplication, partial gastrectomy, MV replacement Smoking: Non-smoker Alcohol Use: None Drug Use: None General Adult HPI: HPI: ".. I ve been hurting all over the past 4 days... I seen the NPA in Dr. Ling office..yesterday.. she did some x rays..and said I probably had a pinched nerve.. and gave me Flexeril.. but I have trouble taking the pills... I called again today.. and told them the neck pain was all the way down my back now.. and I had some pain in my chest and Lt. arm... they said to come to the Emergency Dept.. Patient is a 54 year old female who presents with above hx and complaints generalized myalgia and arthralgia. Some localization of myalgia arthralgia and cervical goes to all the way down to her" tail bone". Patient now also complains of some generalized chest discomfort and left arm pain today. Patient was seen in Dr. Ling's office yesterday and started on Flexeril however she states she is unable to take the Flexeril. Patient denies any recent travel. No specific ill contacts. Has an extensive medical history. Previous history of sepsis, pseudo-normal monos pneumonia, bacteremia, migraine headaches, pseudo-hypocalcemia, protein malnutrition, chronic anemia, asthma, and deconditioning. Pt. rates her pain as 10/10 and nothing makes it better. Review of Systems: Review of Systems: Constitutional: Denies fever or chills Eyes: Denies change in visual acuity HENT: Denies nasal congestion or sore throat Respiratory: Denies cough or shortness of breath Cardiovascular: Complains of chest pain GI: Denies abdominal pain, nausea, vomiting, bloody stools or diarrhea : Denies dysuria Musculoskeletal: Complaints of arthralgia and myalgia Integument: Denies rash Neurologic: Denies headache, focal weakness or sensory changes Endocrine: Denies polyuria or polydipsia Lymphatic: Denies swollen glands Psychiatric: Denies depression or anxiety Heart Score: HEART Score for Chest Pain: HEART Score for Chest Pain Response (Comments) Value History Slighlty/Non-Suspicious 0 ECG Normal 0 Risk Factors 1 or 2 Risk Factors 1 Troponin < Normal Limit 0 Total 1 Risk Factors: Risk Factors: DM, Current or recent (<one month) smoker, HTN, HLP, family history of CAD, obesity. Risk Scores: Score 0 - 3: 2.5% MACE over next 6 weeks - Discharge Home Score 4 - 6: 20.3% MACE over next 6 weeks - Admit for Clinical Observation Score 7 - 10: 72.7% MACE over next 6 weeks - Early Invasive Strategies Family History: Family History: Noncontributory to presentation Current Medications: Current Meds: See nursing for home meds Allergies: Allergies: Allergies Coded Allergies Type Severity Reaction Last Updated Verified hydrocodone Allergy Severe 09/16/19 Yes clarithromycin Allergy Intermediate 09/16/19 Yes codeine Allergy Intermediate 09/16/19 Yes guaifenesin Allergy Intermediate 09/16/19 Yes meperidine Allergy Intermediate 09/16/19 Yes metoclopramide Allergy Intermediate 09/16/19 Yes propoxyphene Allergy Intermediate 09/16/19 Yes tramadol Allergy Intermediate 09/16/19 Yes vitamin K2 Allergy Intermediate 09/16/19 Yes I S O L A T I O N *CONTACT* Allergy Unknown 09/16/19 Yes erenumab-aooe Allergy Unknown Itching 09/16/19 Yes sumatriptan Allergy Unknown 09/16/19 Yes rivaroxaban Adverse Reaction Unknown HEMATOMA 09/16/19 Yes Physical Exam: PE: Constitutional: in acute distress, non-toxic appearance. [] HENT: Normocephalic, atraumatic, bilateral external ears normal, oropharynx moist, no oral exudates, nose normal. [] Eyes: PERRLA, EOMI, conjunctiva normal, no discharge. Glasses Neck: Normal range of motion, no tenderness, supple, no stridor. [] Cardiovascular:Heart rate regular rhythm, no murmur [] Lungs & Thorax: Bilateral breath sounds equal apex on auscultation, right basilar crackles, [] port on left. Midline scar Abdomen: Bowel sounds normal, soft, no tenderness, no masses, no pulsatile masses. Old scar. Skin: Warm, dry, no erythema, no rash. [] Back: No tenderness, no CVA tenderness. [] Extremities: Generalized joint tenderness, generalized muscle tenderness, no cyanosis, no clubbing, ROM intact, no edema. [] No cording appreciated in legs. Neurologic: Alert and oriented X 3, moves all extremities on request, does have distal sensory,, no focal deficits noted. [] Psychologic: Affect anxious, judgement normal, mood normal. [] EKG: EKG: My interpretation of EKG shows a sinus rhythm at 87 bpm. No findings acute STEMI of contralateral changes [] Radiology/Procedures: Radiology/Procedures: [][address] [address] IMAGING REPORT Signed PATIENT: GWENDOLYN CAVAZOS LACCOUNT: [id number] : 1965 LOCATION: [address] [place] [address] AGE: 54 SEX: F EXAM STATUS: ADM IN ORD. PHYSICIAN: ALENA CONTE MD REASON: Severe posterior neck pain, headache PROCEDURE: CT HEAD AND CERVICAL SPINE WO [facility] Compliance Statement: One or more of the following individualized dose reduction techniques were utilized for this examination: 1. Automated exposure control 2. Adjustment of the mA and/or kV according to patient size 3. Use of iterative reconstruction technique CT HEAD AND CERVICAL SPINE WITHOUT CONTRAST History: Reason: Severe posterior neck pain, headache / Spl. Instructions: / History: Comparison: None. Procedure: Axial images are obtained of the head from the skull base through the vertex without IV contrast. Noncontrast helical CT of the cervical spine was performed. Axial, sagittal, and coronal reconstructions were obtained. Findings: The ventricles and sulci are normal for the patient's age. No mass-effect, midline shift, hemorrhage or obvious acute infarction is identified. Basilar cisterns are patent. Bone windows demonstrate no significant calvarial abnormality. The visualized paranasal sinuses are clear. Mastoid air cells are well aerated. There is no evidence of acute fracture or acute malalignment of the cervical spine. There are no perched or jumped facet joints. The facet joints are mildly hypertrophic. The vertebral body height and alignment are maintained. No significant disc space narrowing. There is mild degenerative endplate spurring. Visualized soft tissues of the neck demonstrate no significant abnormalities. The visualized lung apices are clear. IMPRESSION: 1. No acute intracranial abnormality. 2. No acute fracture of the cervical spine. Electronically signed by: Angel Neves MD (03/29/2020 1:45 AM) [facility] DICTATED AND SIGNED BY: ANGEL NEVES MD DATE: 03/29/20 014 CC: CARLOS LING MD; ALENA CONTE MD ~ [place] [id number] IMAGING REPORT Signed PATIENT: GWENDOLYN CAVAZOS LACCOUNT: [id number] : 1965 LOCATION: ER AGE: 54 SEX: F EXAM STATUS: REG ER ORD. PHYSICIAN: ALENA CONTE MD REASON: Chest and neck pain PROCEDURE: CHEST PA & LATERAL EXAM: PA and Lateral Views of the Chest DATE: 03/28/2020 6:30 PM INDICATION: Chest and neck pain COMPARISON: No Prior FINDINGS: The heart is not enlarged. Left subclavian vascular catheter tip projects over the distal SVC. Mediastinal and hilar contours are normal. Patchy opacities in the infrahilar right lung and lung base likely atelectasis or developing consolidation. No pleural effusion or pneumothorax. Multilevel degenerative changes of spine are seen. IMPRESSION: Patchy opacities in the infrahilar right lung and lung base likely atelectasis or developing consolidation. Electronically signed by: Geoffrey Davila MD (03/28/2020 7:47 PM) [facility] DICTATED AND SIGNED BY: GEOFFREY DAVILA MD DATE: 03/28/201946 CC: CARLOS LING MD; ALENA CONTE MD ~ Course & Med Decision Making: Course & Med Decision Making Pertinent Labs and Imaging studies reviewed. (See chart for details) Discussed presentation, testing and tx. plan with Dr. Ling. Admit for further evaluation. Will cover for atypical pneumonia due to the right basilar infiltrate. Patient currently declining spinal tap. Does appear to have a inflammatory exacerbation. COVID test pending Impression: 1. Generalized Myalgia /arthralgia 2. Right lower lobe infiltrate atypical pneumonia versus atelectasis 3. Hypokalemia 3.0 4. Anemia with microcytic hypochromic indices Hgb. 10.0, MCV74, MCH23 5. Elevated CRP 174.5 6. Malnutrition Alb. 3.1 7. Chest Pain 8. Critical INR . >10 COVID Pending at time of admit. [] Dragon Disclaimer: Dragon Disclaimer: This electronic medical record was generated, in whole or in part, using a voice recognition dictation system. Departure Departure: Disposition: 01 HOME/RESIDENCE PRIOR TO ADM Condition: STABLE Referrals: CARLOS LING MD (PCP) Justification of Admission: Justification of Admission: Justification of Admission Dx: Yes Comments: Hypokalemia, Elevated CRP 174.5, Anemia, CP Dragon Disclaimer This chart was dictated in whole or in part using Voice Recognition software in a busy, high-work load, and often noisy Emergency Department environment. It m ay contain unintended and wholly unrecognized errors or omissions. Dragon Disclaimer This chart was dictated in whole or in part using Voice Recognition software in a busy, high-work load, and often noisy Emergency Department environment. It may contain unintended and wholly unrecognized errors or omissions. ALENA CONTE MD Mar 28, 2020 18:10
[2020-03-28] MEDS ORDERED: ORPHENADRINE CITRATE 60 MG/2 ML VIAL. IM ONE (18:30)
[2020-03-28] MEDS ORDERED: MORPHINE SULFATE 10 MG/ML SYRINGE. SQ ONE (18:30)
[2020-03-28] MEDS: ASPIRIN CHEWABLE 81 MG TABLET. PO ONE ×2 (18:30→19:16)
[2020-03-28] MEDS ORDERED: IV RINGERS SOLUTION,LACTATED 1,000 ML IV SCH ×2 (18:30→20:30)
[2020-03-28 19:31] LABS: CALCIUM 8.9 mg/dL (8.5-10.1); CREATININE 0.6 mg/dL (0.6-1.0)
[2020-03-28 19:40] LABS: BASO % 0 % (0-3); EOS % 0 % (0-3); HEMATOCRIT 32.2 % (36.0-47.0); LYMPH # 1.1 x10^3/uL (1.0-4.8); LYMPH % 11 % (24-48); MEAN CORPUSCULAR HEMOGLOBIN 23 pg (25-35); MEAN CORPUSCULAR HGB CONC 31 g/dL (31-37); MEAN CORPUSCULAR VOLUME 74 fL (79-100); MONO % 10 % (0-9); NEUT # 8.1 x10^3uL (1.8-7.7); NEUT % 79 % (31-73); PLATELET COUNT 401 x10^3/uL (140-400); RED BLOOD COUNT 4.34 x10^6/uL (3.50-5.40); RED CELL DISTRIBUTION WIDTH 33.2 % (11.5-14.5); WHITE BLOOD COUNT 10.2 x10^3/uL (4.0-11.0)
[2020-03-28 19:44] LABS: ALBUMIN 3.1 g/dL (3.4-5.0); C REACTIVE PROTEIN 174.5 mg/L (0-3.3); DIRECT BILIRUBIN 0.1 mg/dL (0.0-0.2); TOTAL BILIRUBIN 0.2 mg/dL (0.2-1.0); TOTAL PROTEIN 7.6 g/dL (6.4-8.2)
--- NOTE | 2020-03-28 19:50 | RAD ---
EXAM: PA and Lateral Views of the Chest DATE: 03/28/2020 6:30 PM INDICATION: Chest and neck pain COMPARISON: No Prior FINDINGS: The heart is not enlarged. Left subclavian vascular catheter tip projects over the distal SVC. Mediastinal and hilar contours are normal. Patchy opacities in the infrahilar right lung and lung base likely atelectasis or developing consolidation. No pleural effusion or pneumothorax. Multilevel degenerative changes of spine are seen. IMPRESSION: Patchy opacities in the infrahilar right lung and lung base likely atelectasis or developing consolidation. Electronically signed by: Geoffrey Agustin MD (03/28/2020 7:47 PM) [facility]
[2020-03-28] MEDS ORDERED: AZITHROMYCIN 250 MG TABLET. PO ONE (20:15)
[2020-03-28] MEDS ORDERED: ONDANSETRON PF 4 MG/2 ML VIAL. IVP PRN (20:30)
[2020-03-28] MEDS ORDERED: IV RINGERS SOLUTION,LACTATED 1,000 ML IV ONE (20:30)
[2020-03-28] MEDS ORDERED: POTASSIUM CHLORIDE 20 MEQ TABLET.ER. PO ONE (20:30)
[2020-03-28] MEDS ORDERED: ACETAMINOPHEN 325 MG TABLET PO PRN (20:30)
[2020-03-28] MEDS ORDERED: methylPREDNISolone SOD SUCC PF 125 MG/2 ML VIAL. IV ONE (20:45)
[2020-03-28] MEDS ORDERED: ENOXAPARIN 40 MG/0.4 ML SYRINGE. SQ ONE (21:00)
[2020-03-28] MEDS ORDERED: IV NORMAL SALINE 100ML 100 ML ONE (21:12)
[2020-03-28] MEDS: MORPHINE SULFATE 10 MG/ML SYRINGE. SQ PRN (21:23)
[2020-03-28 21:46] LABS: BARBITURATES NEG (NEG); BENZODIAZEPINES NEG (NEG); CANNABINOIDS NEG (NEG); COCAINE NEG (NEG); METHADONE NEG (NEG); OPIATES POS (NEG); PHENCYCLIDINE NEG (NEG)
[2020-03-28 21:54] LABS: AMPHETAMINE/METHAMPHETAMINE NEG (NEG)
[2020-03-28 22:00] LABS: BILIRUBIN,URINE NEG (NEG); CLARITY,URINE HAZY; COLOR,URINE YELLOW; GLUCOSE,URINE NEG (NEG); UROBILINOGEN,URINE 0.2 mg/dL (0.2 mg/dL)
[2020-03-28] MEDS ORDERED: PROM50TA4 PO (22:00)
[2020-03-28] MEDS ORDERED: DIPH50CA PO (22:00)
[2020-03-28] MEDS ORDERED: ACET500T68 PO (22:00)
[2020-03-28 22:01] LABS: BACTERIA,URINE FEW /HPF (0-FEW); NITRITE,URINE POS (NEG); RBC,URINE 20-40 /HPF (0-2)
[2020-03-28] MEDS ORDERED: WARF2TAB96 PO (22:01)
[2020-03-28 22:24] LABS: % BANDS 4 % (0-9); % BASOS 1 % (0-3); % LYMPHS 14 % (24-48); % MONOS 7 % (0-10); % SEGS 74 % (35-66)
--- NOTE | 2020-03-28 22:24 | EKG ---
[address] [address] Test Date: 2020-03-28 Test Time: 18:46:39 Pat Name: GWENDOLYN CAVAZOS Department: Room: Gender: F Bottle Gauger: : 1965 Requested By: ALENA CONTE Order Number: [id number] Reading MD: Measurements Intervals [place] Rate: 87 P: 77 ND: 152 QRS: 26 QRSD: 86 T: 31 QT: 372 QTc: 454 Interpretive Statements SINUS RHYTHM NORMAL ECG RI6.02 No previous ECG available for comparison
[2020-03-28 22:25] LABS: ANISOCYTOSIS MARKED; HYPOCHROMIA SLIGHT; MICROCYTOSIS SLIGHT; PLT ESTIMATE ADEQUATE (ADEQUATE)
[2020-03-28 22:30] VITALS: BP 149/90
--- NOTE | 2020-03-28 22:57 | NUR ---
Patient was seen in ED for severe neck pain. She states she uses an Albuterol rescue inhaler as needed. She was also swabbed for COVID. Assessment score was a 6 (5 for home tx and 1 for a low HGB). My recommendation is for a combivent MDI prn for this patient. Thank you, NOHELIA RT
[2020-03-28] MEDS ORDERED: CYCL-331 PO (23:39)
--- NOTE | 2020-03-29 00:49 | NUR ---
The patient, GWENDOLYN CAVAZOS, 54 y/o, F admitted by CARLOS LING MD, was given written information regarding hospital policies, unit procedures and contact persons. Valuables were checked and noted. PT presented with neck pain with radiation to bilateral shoulders and arms to mid back. Reviewed with PT her PMH, PSH, SH, FH and medications.
--- NOTE | 2020-03-29 01:48 | RAD ---
PQRS Compliance Statement: One or more of the following individualized dose reduction techniques were utilized for this examination: 1. Automated exposure control 2. Adjustment of the mA and/or kV according to patient size 3. Use of iterative reconstruction technique CT HEAD AND CERVICAL SPINE WITHOUT CONTRAST History: Reason: Severe posterior neck pain, headache / Spl. Instructions: / History: Comparison: None. Procedure: Axial images are obtained of the head from the skull base through the vertex without IV contrast. Noncontrast helical CT of the cervical spine was performed. Axial, sagittal, and coronal reconstructions were obtained. Findings: The ventricles and sulci are normal for the patient's age. No mass-effect, midline shift, hemorrhage or obvious acute infarction is identified. Basilar cisterns are patent. Bone windows demonstrate no significant calvarial abnormality. The visualized paranasal sinuses are clear. Mastoid air cells are well aerated. There is no evidence of acute fracture or acute malalignment of the cervical spine. There are no perched or jumped facet joints. The facet joints are mildly hypertrophic. The vertebral body height and alignment are maintained. No significant disc space narrowing. There is mild degenerative endplate spurring. Visualized soft tissues of the neck demonstrate no significant abnormalities. The visualized lung apices are clear. IMPRESSION: 1. No acute intracranial abnormality. 2. No acute fracture of the cervical spine. Electronically signed by: Angel Neves MD (03/29/2020 1:45 AM) [facility]
[2020-03-29] MEDS ORDERED: MEPERIDINE PF 50 MG/ML VIAL. IV PRN (04:15)
[2020-03-29] MEDS ORDERED: NALBUPHINE 10 MG/ML AMPUL. IV PRN (04:15)
[2020-03-29] MEDS ORDERED: ACETAMINOPHEN 500 MG TABLET PO PRN (04:15)
[2020-03-29] MEDS: LIDOCAINE (700MG/PATCH) PATCH. TD SCH (05:04)
[2020-03-29] MEDS: POTASSIUM CHLORIDE 20MEQ 100 ML IV SCH ×2 (05:05→07:36)
[2020-03-29 05:50] VITALS: BP 91/53
[2020-03-29] MEDS ORDERED: diphenhydrAMINE HCL 25 MG CAPSULE PO PRN (06:00)
[2020-03-29] MEDS ORDERED: ELECTROLYTE (NON-ICU) PROTOCOL MC PRN (07:00)
[2020-03-29] MEDS: PHYTONADIONE 10 MG/ML AMPUL. SQ ONE ×2 (07:30→07:40)
[2020-03-29] MEDS: FERROUS SULFATE 325 MG TABLET. PO SCH ×2 (07:37→21:07)
--- NOTE | 2020-03-29 07:55 | NUR ---
IP: patient is PUI for COVID-19, requires contact and airborne precautions.
[2020-03-29] MEDS ORDERED: IPRATRPIUM/ALBUTEROL 0.5/2.5MG 3 ML NEBU. NEB SCH (08:00)
--- NOTE | 2020-03-29 08:32 | NUR ---
NSG NOTE VITAMIN K ALLERGY VITAMIN K2 LISTED ALLERGIY. DR LING ORDERED VIT K FOR ELEV INR. PT REFUSED STATING SHE IS ALSO ALLERGIC TO VIT K1. VITAMIN K1 ALLERGY ADDED TO HER ALLERGY LIST AND DR LING NOTIED
[2020-03-29] MEDS ORDERED: CYCLOBENZAPRINE 10 MG TABLET. PO SCH (09:00)
[2020-03-29] MEDS ORDERED: METOPROLOL TART IMMED RELEASE 25 MG TABLET PO SCH (09:00)
[2020-03-29] MEDS ORDERED: AZITHROMYCIN 250 MG TABLET. PO ONE (09:00)
[2020-03-29] MEDS ORDERED: MORPHINE SULFATE 2 MG/ML DISP.SYRIN. IV PRN (09:15)
[2020-03-29 09:42] LABS: CALCIUM 8.3 mg/dL (8.5-10.1); CREATININE 0.7 mg/dL (0.6-1.0); GFR 87.9; POTASSIUM 3.3 mmol/L (3.5-5.1)
[2020-03-29 09:58] LABS: BASO # 0.1 x10^3/uL (0.0-0.2); BASO % 1 % (0-3); EOS % 0 % (0-3); HEMATOCRIT 30.5 % (36.0-47.0); HEMOGLOBIN 9.5 g/dL (12.0-15.5); LYMPH # 0.8 x10^3/uL (1.0-4.8); LYMPH % 7 % (24-48); MEAN CORPUSCULAR HEMOGLOBIN 23 pg (25-35); MEAN CORPUSCULAR HGB CONC 31 g/dL (31-37); MEAN CORPUSCULAR VOLUME 74 fL (79-100); MONO # 0.1 x10^3/uL (0.0-1.1); MONO % 1 % (0-9); NEUT # 11.9 x10^3uL (1.8-7.7); NEUT % 92 % (31-73); PLATELET COUNT 362 x10^3/uL (140-400); RED BLOOD COUNT 4.11 x10^6/uL (3.50-5.40); RED CELL DISTRIBUTION WIDTH 34.3 % (11.5-14.5); WHITE BLOOD COUNT 12.9 x10^3/uL (4.0-11.0)
[2020-03-29 10:15] VITALS: BP 108/68
--- NOTE | 2020-03-29 11:15 | RAD ---
Examination: CT chest without contrast HISTORY: History of consolidation COMPARISON: 11/05/2018 TECHNIQUE: Axial CT images of chest were performed without contrast. Coronal and sagittal reformats are performed Exposure: One or more of the following individualized dose reduction techniques were utilized for this examination: 1. Automated exposure control 2. Adjustment of the mA and/or kV according to patient size 3. Use of iterative reconstruction technique FINDINGS: The central airways are patent. Mild cardiomegaly. Right apical 8 mm nodule, 3 mm nodule identified in the right upper lobe, 1.8 cm scarring or linear opacity in the posterior right lower lobe of the lung similar to prior exam similar to prior exam. Smaller nodule identified in the left apical lung measuring 4 mm. Mild degenerative changes thoracic spine. The visualized noncontrasted liver, spleen and adrenals grossly appears unremarkable IMPRESSION: 1. Lung nodules and linear scarring or opacity in the right lower lobe of the lung similar to prior exam. Electronically signed by: Flavio Thorpe MD (03/29/2020 11:12 AM) [id number]
[2020-03-29] MEDS: MORPHINE SULFATE 10 MG/ML SYRINGE. SQ PRN (11:36)
[2020-03-29 12:36] LABS: % BANDS 8 % (0-9); % LYMPHS 10 % (24-48); % MONOS 2 % (0-10); % SEGS 80 % (35-66)
[2020-03-29 12:37] LABS: PLT ESTIMATE ADEQUATE (ADEQUATE)
[2020-03-29 12:38] LABS: ANISOCYTOSIS PRESENT; TOXIC VACUOLATION PRESENT
[2020-03-29 12:39] LABS: HYPOCHROMIA PRESENT
[2020-03-29 15:19] VITALS: BP 100/68
[2020-03-29 20:15] VITALS: BP 101/70
[2020-03-29] MEDS: PATCH REMOVAL. MC SCH (20:22)
--- NOTE | 2020-03-29 20:57 | HP ---
ADMIT DATE: 03/28/2020 HISTORY OF PRESENT ILLNESS: A 54-year-old female came in through the Emergency Room with severe neck and back problems. The patient has pinched nerves as well as difficulty in breathing. She has multiple problems with myalgias, arthralgias all the way from her neck down to her tailbone, but more importantly, the patient rates her pain 10/10, had problems with breathing and as a result of this, came in through the Emergency Room. X-rays did demonstrate a pneumonic process. She had an elevated white count of 13,000 and the patient was admitted for IV antibiotic therapy and other evaluation on her as indicated. She was in severe pain and having difficulty in breathing. PAST MEDICAL AND SURGICAL HISTORY: Headache, valvular disease, endocarditis, open heart surgery, tricuspid valve debridement, ____ in 10/2014 anticoagulant therapy, DVT, respiratory bilateral effusions, pleurocentesis, PE, gastroparesis, peptic ulcer disease, appendectomy, cholecystectomy, lysis of adhesions, laparoscopic Gray fundoplication with takedown, GERD, tubal ligation, hysterectomy, oophorectomy, salpingotomy, hematuria, depression, anxiety, blood disorders, blood transfusions, anemia, iron-deficiency anemia. Pneumococcal vaccinations are up-to-date. Sleep difficulties. 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 Multiple blood processes, has an access port and Groshong. FAMILY HISTORY: Positive for heart disease, myocardial infarction, kidney disease, hypothyroidism, emphysema, diabetes, stroke, and Alzheimer's. ALLERGIES: Adverse reactions to numerous medications including CLARITHROMYCIN, CODEINE, GUAIFENESIN, HYDROCODONE, MEPERIDINE, DEMEROL, METOCLOPRAMIDE, VITAMIN K1 TABLETS, DARVOCET, ELIQUIS, SUMATRIPTAN, TRAMADOL and the like. SOCIAL HISTORY: Denies smoking, alcohol or drug use. Full code. MEDICATIONS: List is in the chart and has been kindly reviewed including diphenhydramine, promethazine, cyclobenzaprine. She has been on warfarin 2 mg a day, metoprolol 25, Tylenol, amitriptyline of 25. REVIEW OF SYSTEMS: Increased severe neck pain, 10/10, radiating all the way down to her neck, pinched nerves down to her arm, shortness of breath, chest pain and the like. PHYSICAL EXAMINATION: GENERAL: This is a pleasant white female looking stated age, quite ill appearing. VITAL SIGNS: Blood pressure 91/53, respiration 18, pulse 96, temperature 99.6. HEENT: The patient's head was atraumatic, normocephalic. Eyes: PERRLA without jaundice. Mouth and throat were normal. NECK: Supple. LUNGS: Clear. Port was noted in the right chest wall. CARDIOVASCULAR: Regular sinus rhythm, S1, S2, without murmur, rub, thrill, or extra heart sounds. ABDOMEN: The patient's abdomen is soft, nontender. No rebound or guarding. Positive bowel sounds, no hepatosplenomegaly was noted. EXTREMITIES: No clubbing, cyanosis, nor edema. NEUROLOGIC: Alert and oriented, very anxious. LABORATORY DATA: The patient's protime was noted to be greater than 10 with PT of 83. The patient's white count 13 as noted, hemoglobin 9.5 and 30, MCV of only 74. Sodium and potassium 139 and 3. Cardiac enzymes negative. C-reactive protein 174. BNP of 310. Albumin low at 3.1. IMPRESSION: Therefore, pneumonia of unspecified etiology, hypocoagulable state, hypokalemia, history of open heart surgery, tricuspid valve debridement and angioplasty, deep vein thromboses, pulmonary embolisms, and the like. PLAN: The patient continues on IV antibiotic therapy, stop her warfarin, give her vitamin K subcutaneous, which she tolerated well and continued to be monitored carefully and make further evaluation on her as indicated. CARLOS LING MD DR: NAJMA/saud JOB#: [id number] / [id number]
[2020-03-29] MEDS: AMITRIPTYLINE HCL 25 MG TABLET PO SCH (21:07)
[2020-03-29] MEDS: MORPHINE SULFATE 2 MG/ML DISP.SYRIN. IV PRN (21:08)
[2020-03-29] MEDS: ORPHENADRINE CITRATE 60 MG/2 ML VIAL. IM PRN (23:58)
[2020-03-30] VITALS (7 sets, daily range): BP systolic 90–131; BP diastolic 50–88
[2020-03-30] MEDS: PROMETHAZINE 25 MG TABLET. PO PRN ×2 (03:33→12:51)
[2020-03-30] MEDS: MORPHINE SULFATE 2 MG/ML DISP.SYRIN. IV PRN ×2 (03:34→08:44)
[2020-03-30] MEDS: LIDOCAINE (700MG/PATCH) PATCH. TD SCH (08:44)
[2020-03-30] MEDS: FERROUS SULFATE 325 MG TABLET. PO SCH ×2 (08:44→23:02)
[2020-03-30] MEDS ORDERED: PIP/TAZO PER PHARMACY MC PRN (08:45)
[2020-03-30] MEDS: ORPHENADRINE CITRATE 60 MG/2 ML VIAL. IM PRN (08:55)
[2020-03-30] MEDS ORDERED: VANCOMYCIN 1.5 GM in IV NORMAL SALINE 500ML 500 ML IV ONE (09:00)
[2020-03-30] MEDS ORDERED: ORPHENADRINE CITRATE 60 MG/2 ML VIAL. IM PRN (09:45)
[2020-03-30] MEDS ORDERED: PHYTONADIONE 10 MG/ML AMPUL. SQ ONE (10:20)
[2020-03-30 10:59] LABS: BASO % 0 % (0-3); EOS % 0 % (0-3); HEMATOCRIT 31.6 % (36.0-47.0); HEMOGLOBIN 9.7 g/dL (12.0-15.5); LYMPH % 11 % (24-48); MEAN CORPUSCULAR HEMOGLOBIN 23 pg (25-35); MEAN CORPUSCULAR HGB CONC 31 g/dL (31-37); MEAN CORPUSCULAR VOLUME 75 fL (79-100); MONO # 0.9 x10^3/uL (0.0-1.1); MONO % 10 % (0-9); NEUT # 7.6 x10^3uL (1.8-7.7); NEUT % 79 % (31-73); PLATELET COUNT 308 x10^3/uL (140-400); RED BLOOD COUNT 4.24 x10^6/uL (3.50-5.40); RED CELL DISTRIBUTION WIDTH 33.3 % (11.5-14.5); WHITE BLOOD COUNT 9.6 x10^3/uL (4.0-11.0)
[2020-03-30] MEDS: PIPERACILLIN/TAZOBACTAM 3.375 GM in IV NORMAL SALINE 50ML 50 ML IV SCH ×2 (11:41→17:24)
[2020-03-30 12:16] LABS: CALCIUM 8.2 mg/dL (8.5-10.1); CREATININE 0.4 mg/dL (0.6-1.0); GFR 167.6; POTASSIUM 3.1 mmol/L (3.5-5.1)
[2020-03-30] MEDS: MORPHINE SULFATE 10 MG/ML SYRINGE. SQ PRN ×2 (12:52→23:12)
--- NOTE | 2020-03-30 12:55 | NUR ---
CRITICAL RESULT RECEIVED FROM THE LAB BY MICHAEL YU , INR 7.4, PT 71.0. DR. LING NOTIFIED, ORDERS OBTAINED. WILL CTM.
--- NOTE | 2020-03-30 13:08 | PN ---
DATE: 03/30/2020 SUBJECTIVE: A 54-year-old female in with possible pneumonia, positive blood cultures 2/4 gram-positive, so treating her for bacteremia at least possible sepsis. She was started on vancomycin and Zosyn. The patient still has severe upper back pain, says only when she moves her neck because it hurts, had this problem before. OBJECTIVE: VITAL SIGNS: The patient's blood pressure 120/80, respiratory rate 20, pulse 95, afebrile. HEENT: The patient's head was atraumatic, normocephalic. LUNGS: Diminished, but clear. CARDIOVASCULAR: Regular sinus rhythm. NECK: Severe spasm in the right trapezius and strap muscles of the cervical spine. ABDOMEN: Soft. EXTREMITIES: No clubbing, cyanosis, or edema. NEUROLOGIC: Intact. LABORATORY DATA: The patient's white count has been elevated. Potassium still being monitored. INR still pending, has been up over 10. We will continue to monitor. The patient started on these antibiotics, monitor her protimes. Lactic acid pending. IMPRESSION: Sepsis hypocoagulable state, severe intractable muscle spasm of the neck. PLAN: We will go ahead and continue to be monitored carefully, and we will get her some diclofenac today on her neck and Norflex and make further evaluation per those results. CARLOS LING MD DR: NAJMA/saud JOB#: [id number] / [id number]
[2020-03-30] MEDS ORDERED: ELECTROLYTE (NON-ICU) PROTOCOL MC PRN (15:00)
[2020-03-30] MEDS: VANCOMYCIN PER PHARMACY MC PRN (15:17)
--- NOTE | 2020-03-30 15:19 | NUR ---
Pharmacy Vancomycin Dosing Note S:Consulted to monitor and dose vancomycin started . O:GWENDOLYN CAVAZOS is a 54 year old F with Pneumonia Height: 5 feet, 5 inches Weight: 58.0 kg Dosing Weight: Actual Other Antibiotics: ZOSYN 3.375MG IV Q6H LABS: Last BUN: 10 Last Creatinine: 0.4 Creatinine Clearance: 148 Last WBC: 9.6 Vancomycin Dosing: Loading Dose: 1500 mg x1 Dosing Weight: Actual Target Trough: 10-20 A: Based on: Community acquired pneumonia with high CrCl, start maintenance dose at q8h interval and adjust based on trough before 4th dose. P: 1. Begin Vancomycin 1000 mg IV q8h 2. Follow up Trough level on 03/31/20 at 0900 3. Pharmacy will continue to monitor, follow and adjust therapy as needed. ANEUDY VILLALBA, 03/30/20 [id number]
[2020-03-30] MEDS: POTASSIUM CHLORIDE 20 MEQ TABLET.ER. PO SCH (17:24)
[2020-03-30] MEDS: VANCOMYCIN 1 GM in IV NORMAL SALINE 250ML 250 ML IV SCH (17:55)
[2020-03-30] MEDS: PATCH REMOVAL. MC SCH (21:00)
[2020-03-30] MEDS: AMITRIPTYLINE HCL 25 MG TABLET PO SCH (23:03)
[2020-03-31] MEDS: PIPERACILLIN/TAZOBACTAM 3.375 GM in IV NORMAL SALINE 50ML 50 ML IV SCH ×4 (00:52→17:50)
[2020-03-31] MEDS: VANCOMYCIN 1 GM in IV NORMAL SALINE 250ML 250 ML IV SCH (01:30)
[2020-03-31 05:12] VITALS: BP 94/65
[2020-03-31] MEDS: MORPHINE SULFATE 10 MG/ML SYRINGE. SQ PRN ×2 (06:29→17:54)
[2020-03-31] MEDS: PROMETHAZINE 25 MG TABLET. PO PRN ×2 (06:30→22:05)
[2020-03-31] MEDS: POTASSIUM CHLORIDE 20 MEQ TABLET.ER. PO SCH (08:50)
[2020-03-31] MEDS: FERROUS SULFATE 325 MG TABLET. PO SCH ×2 (08:50→21:51)
[2020-03-31] MEDS: LIDOCAINE (700MG/PATCH) PATCH. TD SCH (09:00)
[2020-03-31] MEDS: DICLOFENAC SODIUM 1% TOPICAL GEL 100GM TUBE. TP SCH (09:00)
[2020-03-31] MEDS: ORPHENADRINE CITRATE 60 MG/2 ML VIAL. IM PRN ×2 (09:05→17:54)
[2020-03-31 09:30] LABS: BASO # 0.1 x10^3/uL (0.0-0.2); BASO % 1 % (0-3); EOS # 0.1 x10^3/uL (0.0-0.7); EOS % 1 % (0-3); HEMATOCRIT 29.7 % (36.0-47.0); HEMOGLOBIN 9.3 g/dL (12.0-15.5); LYMPH # 0.7 x10^3/uL (1.0-4.8); LYMPH % 7 % (24-48); MEAN CORPUSCULAR HEMOGLOBIN 23 pg (25-35); MEAN CORPUSCULAR HGB CONC 31 g/dL (31-37); MEAN CORPUSCULAR VOLUME 74 fL (79-100); MONO # 0.7 x10^3/uL (0.0-1.1); MONO % 7 % (0-9); NEUT # 8.6 x10^3uL (1.8-7.7); NEUT % 84 % (31-73); PLATELET COUNT 321 x10^3/uL (140-400); RED CELL DISTRIBUTION WIDTH 33.2 % (11.5-14.5); WHITE BLOOD COUNT 10.2 x10^3/uL (4.0-11.0)
[2020-03-31 09:32] LABS: CALCIUM 8.4 mg/dL (8.5-10.1); CREATININE 1.1 mg/dL (0.6-1.0); GFR 52.2; POTASSIUM 3.2 mmol/L (3.5-5.1)
[2020-03-31 09:38] LABS: VANC TR 28.3 mcg/mL (10.0-20.0)
[2020-03-31] MEDS: VANCOMYCIN PER PHARMACY MC PRN (10:31)
--- NOTE | 2020-03-31 10:31 | NUR ---
Pharmacy Vancomycin Dosing Note S:Consulted to monitor and dose vancomycin started . O:GWENDOLYN CAVAZOS is a 54 year old F with Pneumonia, . Height: 5 feet, 5 inches Weight: 58.0 kg [place] Body Weight: 57.00 Adjusted Body Weight: 57.40 Dosing Weight: Actual Other Antibiotics: ZOSYN 3.375GM Q6HRS LABS: Last BUN: 11 Last Creatinine: 1.1 Creatinine Clearance: 148 Last WBC: 9.6 Last Procalcitonin: Tmax (past 24 hours): Microbiology: I/O: Drug Levels: Last Trough level: 28.3 on 03/31/20 at 0900 Last dose given 03/31/20 at 0130 Vancomycin Dosing: Loading Dose: 1500 mg x1 Dosing Weight: Actual Target Trough: 15-20 A: Based on: P: 1. Hold Vancomycin 1000 mg IV q8h (will redose pending random level) 2. Follow up Random level on 04/01/20 at 0900 3. Pharmacy will continue to monitor, follow and adjust therapy as needed. PRUDENCE YUN [facility], 03/31/20 1039
[2020-03-31 11:02] VITALS: BP 97/64
[2020-03-31 15:02] VITALS: BP 92/55
--- NOTE | 2020-03-31 15:15 | PN ---
DATE: SUBJECTIVE: A 54-year-old female with sepsis. The patient had positive blood cultures. Final ID came out to be Pseudomonas aeruginosa. She is on IV Zosyn and vancomycin. She did have some Staph epidermidis, which may be contaminant, but obviously the Pseudomonas is of concern. She does have a Groshong in, which may be contaminated. She has had problems other times with infections of her heart valves. PHYSICAL EXAMINATION: VITAL SIGNS: Remained stable. She is feeling much better today. Blood pressure 97/64, respiratory rate 18, pulse 88, temperature 98.0. HEENT: The patient's head was atraumatic, normocephalic. Eyes: PERRLA without jaundice. The mouth and throat were normal. NECK: Supple. LUNGS: Diminished, but clear. CARDIOVASCULAR: Stable. ABDOMEN: Soft. EXTREMITIES: No clubbing, cyanosis. No edema. MEDICATIONS: The patient is receiving the Zosyn per pharmacy that should cover the Pseudomonas. Otherwise, the patient is making good progress. IMPRESSION: Sepsis, Pseudomonas aeruginosa bacteremia, hypokalemia, elevated C-reactive protein greater than 170, albumin 3.1 of moderate protein malnutrition, multiple other histories including valvular debridement annuloplasty. She has a Groshong, a possible sources of infection for Pseudomonas. PLAN: The patient will certainly keep her on the Zosyn for now and make further evaluation on her as indicated for the serious medical issues. CARLOS LING MD DR: NAJMA/saud JOB#: [id number] / [id number]
[2020-03-31 15:34] LABS: ANISOCYTOSIS PRESENT; HYPOCHROMIA PRESENT; MICROCYTOSIS PRESENT; PLT ESTIMATE ADEQUATE (ADEQUATE)
[2020-03-31 15:36] LABS: OVALOCYTES PRESENT; POLYCHROMASIA PRESENT; TARGET CELLS PRESENT
[2020-03-31 19:00] VITALS: BP 127/82
[2020-03-31] MEDS: PATCH REMOVAL. MC SCH (20:42)
[2020-03-31] MEDS: LACTOBACILLUS RHAMNOSUS GG 1 CAPSULE. PO SCH (21:51)
[2020-03-31] MEDS: AMITRIPTYLINE HCL 25 MG TABLET PO SCH (21:53)
[2020-03-31 23:00] VITALS: BP 107/70
[2020-04-01] MEDS: PIPERACILLIN/TAZOBACTAM 3.375 GM in IV NORMAL SALINE 50ML 50 ML IV SCH ×3 (06:01→11:31)
[2020-04-01] MEDS: MORPHINE SULFATE 10 MG/ML SYRINGE. SQ PRN ×3 (06:02→21:14)
[2020-04-01 06:15] VITALS: BP 114/71
[2020-04-01 07:24] LABS: BASO % 0 % (0-3); EOS # 0.1 x10^3/uL (0.0-0.7); EOS % 2 % (0-3); HEMATOCRIT 28.6 % (36.0-47.0); LYMPH # 0.8 x10^3/uL (1.0-4.8); LYMPH % 12 % (24-48); MEAN CORPUSCULAR HEMOGLOBIN 24 pg (25-35); MEAN CORPUSCULAR HGB CONC 31 g/dL (31-37); MEAN CORPUSCULAR VOLUME 75 fL (79-100); MONO # 0.5 x10^3/uL (0.0-1.1); MONO % 8 % (0-9); NEUT # 5.1 x10^3uL (1.8-7.7); NEUT % 78 % (31-73); PLATELET COUNT 296 x10^3/uL (140-400); RED CELL DISTRIBUTION WIDTH 33.1 % (11.5-14.5); WHITE BLOOD COUNT 6.6 x10^3/uL (4.0-11.0)
[2020-04-01 07:33] LABS: CALCIUM 8.2 mg/dL (8.5-10.1); CREATININE 1.6 mg/dL (0.6-1.0); GFR 33.8; POTASSIUM 3.7 mmol/L (3.5-5.1)
[2020-04-01] MEDS ORDERED: ALTEPLASE 2 MG VIAL INT CAT ONE (08:00)
[2020-04-01] MEDS: LACTOBACILLUS RHAMNOSUS GG 1 CAPSULE. PO SCH ×2 (08:36→21:14)
[2020-04-01] MEDS: FERROUS SULFATE 325 MG TABLET. PO SCH ×2 (08:37→21:14)
[2020-04-01] MEDS: POTASSIUM CHLORIDE 20 MEQ TABLET.ER. PO SCH (08:37)
[2020-04-01] MEDS: DICLOFENAC SODIUM 1% TOPICAL GEL 100GM TUBE. TP SCH (08:37)
[2020-04-01] MEDS: LIDOCAINE (700MG/PATCH) PATCH. TD SCH (08:37)
[2020-04-01] MEDS: ORPHENADRINE CITRATE 60 MG/2 ML VIAL. IM PRN (08:46)
[2020-04-01] MEDS ORDERED: VANCOMYCIN RANDOM LEVEL. MC ONE (09:00)
[2020-04-01] MEDS: PROMETHAZINE 25 MG TABLET. PO PRN ×2 (09:40→21:13)
[2020-04-01 10:37] VITALS: BP 122/74
[2020-04-01 16:00] VITALS: BP 96/59
[2020-04-01] MEDS ORDERED: MORPHINE SULFATE 2 MG/ML DISP.SYRIN. IV PRN ×2 (16:57→17:00)
[2020-04-01 19:00] VITALS: BP 119/79
[2020-04-01] MEDS: PATCH REMOVAL. MC SCH (21:00)
[2020-04-01] MEDS: AMITRIPTYLINE HCL 25 MG TABLET PO SCH (21:14)
[2020-04-01 23:00] VITALS: BP 112/74
[2020-04-02] MEDS: ORPHENADRINE CITRATE 60 MG/2 ML VIAL. IM PRN (00:16)
[2020-04-02 06:07] VITALS: BP 110/76
--- NOTE | 2020-04-02 07:49 | PN ---
DATE: 04/01/2020 SUBJECTIVE: This is a 54-year-old female with sepsis. The patient had pseudomonas grown out of her blood specimen (NC), changed the antibiotics to ____ sensitivity to that particular organisms as well as her Staph epidermidis. In any case, she says she is feeling somewhat better. She has still severe upper back pain. PHYSICAL EXAMINATION: VITAL SIGNS: Blood pressure approximately 96/54, respiratory rate 20, pulse 83, afebrile. GENERAL: The patient is alert and oriented. LUNGS: Diminished, still some upper back pain on palpation. CARDIOVASCULAR: Regular sinus rhythm. ABDOMEN: Soft, nontender. EXTREMITIES: The patient has had previous infection with pseudomonas, unknown etiology. Continue on her combination of antibiotics for coverage. IMPRESSION: Sepsis, bacteremia, Pseudomonas aeruginosa, chronic migraines, history of tricuspid valve, debridement and annuloplasty. She has a Groshong. She says she has had this before and they have taken off the [place]ong ____ on the tip. In any case, we will continue to monitor the patient and accordingly make further evaluation on her. Continue on the change in her IV antibiotics to ____ and Levaquin and see if these 2 combinations get her feeling better even sooner. Her INR is in the low 3 range at present. CARLOS LING MD DR: NAJMA/saud JOB#: [id number] / [id number]
[2020-04-02] MEDS: FERROUS SULFATE 325 MG TABLET. PO SCH (08:31)
[2020-04-02] MEDS: POTASSIUM CHLORIDE 20 MEQ TABLET.ER. PO SCH (08:31)
[2020-04-02] MEDS: LACTOBACILLUS RHAMNOSUS GG 1 CAPSULE. PO SCH (08:31)
[2020-04-02] MEDS: DICLOFENAC SODIUM 1% TOPICAL GEL 100GM TUBE. TP SCH (08:32)
[2020-04-02] MEDS: LIDOCAINE (700MG/PATCH) PATCH. TD SCH (08:32)
[2020-04-02] MEDS: MORPHINE SULFATE 10 MG/ML SYRINGE. SQ PRN (08:45)
[2020-04-02] MEDS: PROMETHAZINE 25 MG TABLET. PO PRN (08:45)
[2020-04-02] MEDS ORDERED: ALTEPLASE 2 MG VIAL INT CAT ONE (09:45)
[2020-04-02] MEDS ORDERED: LEVO750T5 PO (09:55)
[2020-04-02] MEDS ORDERED: POTA20TA4 PO (09:55)
[2020-04-02] MEDS ORDERED: LACT1CAP19 PO (09:55)
[2020-04-02] MEDS ORDERED: ORPH-16 PO (09:55)
[2020-04-02] MEDS ORDERED: DICL100G18 TP (09:55)
[2020-04-02] MEDS ORDERED: LIDO700A21 TD (09:55)
[2020-04-02 11:28] VITALS: BP 112/73
--- NOTE | 2020-04-02 11:45 | NUR ---
NURSING NOTE COUMADIN PER DR LING PT IS TO DISCHARGE HOME WITH COUMADIN 3MG DAILY AND FOLLOW UP AT OFFICE. GIGI MAURICE.
--- NOTE | 2020-04-02 11:51 | NUR ---
NURSING NOTE DISCHARGE PT DISCHARGED HOME VIA AMBULATION, PT REQUEST TO WAIT IN LOBBY FOR HER DAD TO PICK HER UP. PT GIVEN WRITTEN AND VERBAL DISCHARGE INSTRUCTIONS. PT SCRIPTS SENT TO [facility] BY COMPUTER. PER DR LING, PT IS TO CONTINUE WARFARIN 3MG DAILY AND FOLLOW UP IN OFFICE. PT DENIES ANY QUESTIONS AT THIS TIME. GIGI MAURICE.
--- NOTE | 2020-04-03 00:27 | DS ---
DATE OF DISCHARGE: 04/02/2020 HOSPITAL COURSE: The patient came in through the Emergency Room. The patient has been having severe neck and upper back problems, pinched nerves as well and arthralgias. However, she did have an elevated white count. Blood cultures were obtained and showed the patient had a pseudomonal infection and was placed on IV antibiotic therapy. Blood cultures (NC). The patient in turn was started on some Zosyn and linezolid; however, when final sensitivities came back found that the patient had a significant sensitivity of the bacteria to Levaquin and as a result of that, the patient was switched over to oral and did quite well. She will be discharged on that and make further evaluation. Last blood pressure was 112/73, respiratory rate ____, pulse 80, and afebrile. The patient's labs show white count of 6.6, hemoglobin of 9 and hematocrit 28.6, not uncommon for this young lady. The patient's sodium and potassium 140 and 3.7, BUN and creatinine went from 10 and 0.4, up to 11 and 1.6. We will continue to monitor her BUN and creatinine as an outpatient. COVID-19 negative. The patient did have slightly low potassium of 3.1. Her INR was also greater than 10, came down to 3.5 and she will be restarted on a lower dose of Coumadin, then she had been taking 1 mg ____ to see if we can keep that under in play. The patient's CT scan of the chest showed lung nodules linear scarring opacity in the right lower lobe, but unchanged from previous exams. The patient otherwise made excellent progress when she was started on IV antibiotics and converted over to oral antibiotics, again blood cultures pseudomonas (NC) and the patient was discharged home. She will be on a regular diet, decreased activity, and follow up in 2-3 days to get her protime rechecked and make further evaluation on her as indicated. CARLOS LING MD DR: NAJMA/saud JOB#: [id number] / [id number]
== END 2020-04-02 12:10 | disposition home or self-care (01) | DRG 871 ==
LOC: ER 18:05 → 1 SOUTH 20:20
PROVIDERS: ADMIT Family Medicine; ATTEND Family Medicine
DX: A41.9 Sepsis, unspecified organism (principal); J18.9 Pneumonia, unspecified organism; E44.0 Moderate protein-calorie malnutrition; J98.11 Atelectasis; D50.9 Iron deficiency anemia, unspecified; E87.6 Hypokalemia; G43.909 Migraine, unspecified, not intractable, without status migrainosus; J45.909 Unspecified asthma, uncomplicated; Z20.828 Contact with and (suspected) exposure to other viral communicable diseases; Z82.0 Family history of epilepsy and other diseases of the nervous system; Z82.3 Family history of stroke; Z82.49 Family history of ischemic heart disease and other diseases of the circulatory system; Z82.5 Family history of asthma and other chronic lower respiratory diseases; Z83.3 Family history of diabetes mellitus; Z86.711 Personal history of pulmonary embolism; Z87.11 Personal history of peptic ulcer disease; Z90.3 Acquired absence of stomach [part of]; Z90.49 Acquired absence of other specified parts of digestive tract; Z90.710 Acquired absence of both cervix and uterus; F32.9 Major depressive disorder, single episode, unspecified; F41.9 Anxiety disorder, unspecified; M19.90 Unspecified osteoarthritis, unspecified site; Z68.21 Body mass index [BMI] 21.0-21.9, adult; Z88.8 Allergy status to other drugs, medicaments and biological substances
CPT/HCPCS: 36415; 70450; 71046; 71250; 72125; 80048; 80076; 80202; 80307; 81001; 82550; 83605; 83690; 83735; 83880; 84443; 84484; 85007; 85025; 85379; 85610; 85730; 86140; 87040; 87077; 87086; 87186; 87205; 93005; 96372; J0456; J0696; J1956; J2020; J2270; J2360; J2405; J2543; J2997; J3370; J3430; J3480; J7040; J7050; J7120; Q0169; 99285-25; U0003-CS

== ENCOUNTER → 2020-10-13 | Outpatient (CLI) | payer BC, MEDICARE ==
[~2020-10-13] MED LIST changes: +ACET500T68 PO; +CYCL-331 PO; +DICL100G18 TP; +DIPH50CA PO; +LEVO750T5 PO; +LIDO700A21 TD; +ORPH-16 PO; +PROM50TA4 PO; +WARF2TAB96 PO
--- NOTE | 2020-10-13 11:37 | RAD ---
EXAMINATION: US DPLX VENOUS EXTREMITY LOWER LT (LOWER EXTREMITY VENOUS ULTRASOUND) CLINICAL HISTORY: Left lower extremity pain, history of DVT TECHNIQUE: Sonographic grayscale images obtained of the left lower extremity deep venous system with color flow Doppler, compression, and augmentation techniques as indicated. Images obtained and store d in a permanent archive. COMPARISON: None FINDINGS: No evidence of absent flow or incompressibility within the common femoral vein, femoral vein, or popl iteal vein. Visualized calf veins appear patent on limited evaluation. IMPRESSION: No evidence of left lower extremity DVT. Electronically signed by: Abe Matamoros DO (10/13/2020 11:35 AM) [id number]
== END ==
LOC: US 10:56
PROVIDERS: ATTEND Family Medicine
DX: M79.662 Pain in left lower leg (principal); Z86.711 Personal history of pulmonary embolism
CPT/HCPCS: 93971

== ENCOUNTER → 2021-10-08 | Outpatient (CLI) | payer BC, MEDICARE ==
[~2021-10-08] MED LIST changes: -CYCL-331 PO; +CYCL10TA19 PO; -DIPH50CA PO; +DIPH50CA16 PO; +POTA-121 PO; -POTA20TA4 PO
--- NOTE | 2021-10-09 10:05 | CARD ---
MR#: [id number] Date of Study: 10/08/2021 Ordering Physician: KARIN GUO, Referring Physician: KARIN GUO, Tech: Raghav Felix [facility] APPROVED REPORT EXAM: Two-dimensional and M-mode echocardiogram with Doppler and color Doppler. Other Information Quality : GoodHR: 64bpm Rhythm : NSR INDICATION Infection: Surgery/Intervention S/P Tricuspid valve repair. (Previous valvular endocarditis) 2D DIMENSIONS Left Atrium(2D)3.2 (1.6-4.0cm)IVSd0.8 (0.7-1.1cm) Aortic Root(2D)3.1 (2.0-3.7cm)LVDd4.3 (3.9-5.9cm) LVOT Diameter1.8 (1.8-2.4cm)PWd0.8 (0.7-1.1cm) LVDs2.4 (2.5-4.0cm)FS (%) 44.9 % SV63.4 ml Aortic Valve AoV Peak Jonathan.115.1cm/sAoV VTI22.8cm AO Peak GR.5.3mmHgLVOT Peak Jonathan.121.8cm/s LVOT VTI 19.37cmAO Mean GR.2mmHg TIFFANIE (VMAX)2.06wx3QCE (VTI)2.16cm2 Mitral Valve MV E Ngwzverj594.9cm/sMV DECEL TLOB350lx MV A Firwajvk33.0cm/sE/A Ratio1.6 Pulmonary Valve PV Peak Osuczdko338.2cm/sPV Peak Grad.5mmHg Tricuspid Valve TR P. Jpvynqhk135ou/sTR Peak Gr.23mmHg Pulmonary Vein S1 Rtdlasro01.0cm/sD2 Cpxnlxdv99.9cm/s LEFT VENTRICLE The left ventricle is normal size. There is normal left ventricular wall thickness. The left ventricu lar systolic function is normal and the ejection fraction is within normal range. LV ejection fractio n of 50 to 55%. There is normal LV segmental wall motion. Transmitral Doppler flow pattern is Grade I I-pseudonormal filling dynamics. No left ventricle thrombus noted on this study. There is no ventricu lar septal defect visualized. There is no left ventricular aneurysm. There is no mass noted in the le ft ventricle. RIGHT VENTRICLE The right ventricle is normal size. There is normal right ventricular wall thickness. The right ventr icular systolic function is normal. ATRIA The left atrium size is normal. The right atrium size is normal. The interatrial septum is intact wit h no evidence for an atrial septal defect or patent foramen ovale as noted on 2-D or Doppler imaging. AORTIC VALVE The aortic valve is normal in structure and function. The aortic valve is trileaflet. Doppler and Col or Flow revealed no significant aortic regurgitation. There is no significant aortic valvular stenosi s. There is no aortic valvular vegetation. MITRAL VALVE The mitral valve is normal in structure and function. There is no evidence of mitral valve prolapse. There is no mitral valve stenosis. Doppler and Color Flow revealed no mitral valve regurgitation note d. TRICUSPID VALVE Doppler and Color Flow revealed mild tricuspid regurgitation. The PA pressure was estimated at 30 mmH g. There is no tricuspid valve prolapse or vegetation. There is no tricuspid valve stenosis. PULMONIC VALVE The pulmonary valve is normal in structure and function. Doppler and Color Flow revealed no pulmonic valvular regurgitation. There is no pulmonic valvular stenosis. GREAT VESSELS The aortic root is normal in size. The ascending aorta is normal in size. The pulmonary artery is nor mal. Subcostal views were difficult so the IVC was not visualized. PERICARDIAL EFFUSION There is no pleural effusion. There is no evidence of significant pericardial effusion. Critical Notification Critical Value: No <Conclusion> The left ventricle is normal size. The left ventricular systolic function is normal and the ejection fraction is within normal range. LV ejection fraction of 50 to 55%. There is normal LV segmental wall motion. Doppler and Color Flow revealed no significant aortic regurgitation. There is no significant aortic valvular stenosis. Doppler and Color Flow revealed no mitral valve regurgitation noted. Doppler and Color Flow revealed mild tricuspid regurgitation. The PA pressure was estimated at 30 mmHg. Signed by : Dimitri Crane MD Electronically Approved : 10/09/2021 10:04:51
== END ==
LOC: ECHO 09:45
PROVIDERS: ATTEND Internal Medicine Cardiovascular Disease
DX: I07.1 Rheumatic tricuspid insufficiency (principal); I38 Endocarditis, valve unspecified
CPT/HCPCS: 93306